=== PATIENT | female | born 1945 | race Caucasian/White ===

== ENCOUNTER 2019-05-15 06:00 | Outpatient (RCR) | payer MEDICARE, BC, SELFPAY | END 2019-05-31 23:59 | disposition home or self-care (01) | LOC: TPT 06:00 | PROVIDERS: Family Provider Internal Medicine; PCP Internal Medicine; Visit Provider Internal Medicine | DX: M25.512 Pain in left shoulder (principal) | CPT/HCPCS: 97032; 97110; 97140; 97161; 97530; G0283 ==

== ENCOUNTER 2019-06-01 06:00 | Outpatient (RCR) | payer MEDICARE, BC, SELFPAY | END 2019-06-29 23:59 | disposition home or self-care (01) | LOC: TPT 06:00 | PROVIDERS: Family Provider Internal Medicine; PCP Internal Medicine; Visit Provider Internal Medicine | DX: R42 Dizziness and giddiness (principal) | CPT/HCPCS: 97032; 97110; 97140; 97164; 97530; G0283 ==

== ENCOUNTER 2019-06-30 06:00 | Outpatient (RCR) | payer MEDICARE, BC, SELFPAY | END 2019-07-30 23:59 | disposition home or self-care (01) | LOC: TPT 06:00 | PROVIDERS: Family Provider Internal Medicine; PCP Internal Medicine; Visit Provider Internal Medicine | DX: R42 Dizziness and giddiness (principal) | CPT/HCPCS: 97032; 97110; 97140; G0283 ==

== ENCOUNTER 2019-07-04 20:00 | Outpatient (CLI) | payer MEDICARE, BC, SELFPAY | END 2019-07-04 20:01 | disposition home or self-care (01) | LOC: SLEEP 07-05 09:24 | PROVIDERS: Family Provider Internal Medicine; PCP Internal Medicine; Visit Provider Internal Medicine | DX: G47.33 Obstructive sleep apnea (adult) (pediatric) (principal) | CPT/HCPCS: 95810 ==

== ENCOUNTER 2019-09-09 09:12 | Day surgery (SDC) | payer MEDICARE, BC, SELFPAY ==
[2019-09-06 13:34] VITALS: BMI 35.7
--- NOTE | 2019-09-09 08:29 | W.PM.OPSFHP ---
Same Day Surgery H&P Indication for Procedure/HPI DATE OF PROCEDURE: September 09, 2019 CHIEF COMPLAINT/INDICATIONFOR SURGICAL PROCEDURE: Epigastric pain and chronic diarrhea PREOP DIAGNOSIS: Epigastric pain and chronic diarrhea PLANNED PROCEDRUE: Operation Date: 09/09/19 09:35 Proposed Procedures p EGD [id number]/R10.13/K52.9(Not Applicable) - Silvio Sequeira MD s Colonoscopy(Not Applicable) - Silvio Sequeira MD Medications/Allergies* Home Medications Medication Instructions Recorded Confirmed Type aspirin 81 mg tablet,delayed 81 mg PO DAILY 07/29/19 09/06/19 History release atenolol 25 mg tablet 25 mg PO DAILY 07/29/19 09/06/19 History atorvastatin 40 mg tablet 40 mg PO DAILY 07/29/19 09/06/19 History cholecalciferol (vitamin D3) 25 25 mcg PO DAILY 07/29/19 09/06/19 History mcg (1,000 unit) capsule clopidogrel 75 mg tablet 75 mg PO DAILY 07/29/19 09/06/19 History fish oil-dha-epa 1,200 mg-144 1 cap PO 07/29/19 07/29/19 History mg-216 mg capsule furosemide 40 mg tablet 40 mg PO DAILY 07/29/19 09/06/19 History hydrocodone 5 mg-acetaminophen 325 1 tab PO DAILY PRN tab 07/29/19 09/06/19 History mg tablet isosorbide mononitrate 60 mg 60 mg PO DAILY 07/29/19 09/06/19 History tablet,extended release 24 hr naproxen 250 mg tablet 250 mg PO BID PRN 07/29/19 09/06/19 History potassium chloride 20 mEq 20 meq PO DAILY 07/29/19 09/06/19 History tablet,extended release ranolazine 500 mg tablet,extended 500 mg PO BID 07/29/19 09/06/19 History release,12 hr pyridostigmine bromide 60 mg PO TID 09/06/19 09/06/19 History Allergies/Adverse Reactions Allergy/AdvReac Type Severity Reaction Status Date / Time amoxicillin Allergy ALGY-Hives Verified 07/29/19 14:44 aspirin [From Aggrenox] Allergy Unknown Verified 07/29/19 14:44 Cephalosporins Allergy Unknown Verified 07/29/19 14:44 dipyridamole [From Aggrenox] Allergy Unknown Verified 07/29/19 14:44 glimepiride [From Amaryl] Allergy Unknown Verified 07/29/19 14:44 levofloxacin [From Levaquin] Allergy Unknown Verified 07/29/19 14:44 pregabalin [From Lyrica] Allergy Unknown Verified 07/29/19 14:44 procaine [From Novocain] Allergy Unknown Verified 07/29/19 14:44 sumatriptan [From Imitrex] Allergy ALGY-Rash Verified 07/29/19 14:44 Pertinent Exam Findings alert, oriented x 3, clear to auscultation bilaterally, regular rate & rhythm, operative site marked and procedure specific exam findings Recommendations Surgery/Procedure today Coding Level of Care Code Acute Business Services Representative for Sherie Arboleda
[2019-09-09 09:40] VITALS: BP 158/84; PULSE 68; RESP 18; TEMP 36.3; O2SAT 97
[2019-09-09] MEDS: sodium chloride 0.9% 1,000 ML 30 ML IV (09:50)
--- NOTE | 2019-09-09 09:54 | ANES.PREANE2 ---
Pre-Anesthetic Assessment Pre-Anesthetic Assessment: Height/Weight: Height 1.65 m Weight 97.522 kg Temp Pulse Resp BP Pulse Ox 97.3 F L 68 18 158/84 97 09/09/19 09:40 09/09/19 09:40 09/09/19 09:40 09/09/19 09:40 09/09/19 09:40 Preop Diagnosis: diarrhea Proposed Procedure: Operation Date: 09/09/19 09:35 Proposed Procedures p EGD [id number]/R10.13/K52.9(Not Applicable) - Silvio Sequeira MD s Colonoscopy(Not Applicable) - Silvio Sequeira MD Familial anesthetic complications: None Did not take atenolol Was Beta Quang taken within 24 hours: N/A Last intake: Intake Last Liquid Date 09/08/19 Last Liquid Time 19:30 Last Solid Date 09/07/19 Last Solid Time 00:00 Social: Social History: No alcohol and No tobacco Exam: Pre-Anes Outpt Exam: alert, oriented x 3, clear to auscultation bilaterally and regular rate & rhythm Airway: Cervical ROM: WNL MP: 4 Additional comments: missing Pulmonary: Pulmonary: Sleep apnea (cpap) CV/HEM: CV/HEM: HTN Comments: Patient states I have no idea why I take plavix. I just follow the doctor's directions Probably last took plavix yesterday : : None reported Hepatic: Hepatic: None reported GI: GI: None reported Metabolic: Metabolic: None reported Musc/skel: Musc/skel: None reported Neuropsych: Neuropsych: None reported Anesthetic Plan: ASA status: 3 Anesthesia: MAC Risk of > 500 ml blood loss (7ml/kg in children): No Meds/Allergies Current Medications: Current Medications Generic Name Dose Route Start Last Admin Trade Name Freq PRN Reason Stop Dose Admin Sodium Chloride 1,000 mls @ 30 ml s/hr 09/09/19 09:45 09/09/19 09:50 Sodium Chloride 0.9% IV 30 mls/hr .Q24H ALVARADO Administration Data Anesthesia Cardiac Studies: No Data to Display
[2019-09-09 09:55] LABS: Glucose Point of Care 144 mg/dL (70-110)
[2019-09-09 11:33] VITALS: BP 151/90; PULSE 57; RESP 16; TEMP 33.1; O2SAT 92
[2019-09-09 12:00] VITALS: BP 159/89; PULSE 66; RESP 18; O2SAT 95
[2019-09-10 14:19] LABS: H. Pylori / CLO Test Negative
== END 2019-09-09 12:30 | disposition home or self-care (01) ==
PROVIDERS: Family Provider Internal Medicine; PCP Internal Medicine; Visit Provider Internal Medicine
PROC: 0DJ08ZZ Inspection of Upper Intestinal Tract, Via Natural or Artificial Opening Endoscopic (ICD-10-PCS; CPT 43235; principal; 2019-09-09 09:30)
PROC: 0DJD8ZZ Inspection of Lower Intestinal Tract, Via Natural or Artificial Opening Endoscopic (ICD-10-PCS; CPT 45378; 2019-09-09 09:30)
DX: K52.9 Noninfective gastroenteritis and colitis, unspecified (principal); R10.13 Epigastric pain; Z79.82 Long term (current) use of aspirin; G47.30 Sleep apnea, unspecified; I10 Essential (primary) hypertension; Z79.02 Long term (current) use of antithrombotics/antiplatelets
CPT/HCPCS: 45378; 12345; 36416; 43239; 45380; 82274; 82962; 83630; 87077; 87493; 87506; 88305; J2001; J2704; J7030

== ENCOUNTER → 2019-11-04 10:30 | Outpatient (BNVA) | payer MEDICARE, BC, SELFPAY | PROVIDERS: Family Provider Internal Medicine; PCP Internal Medicine; Visit Provider Internal Medicine Cardiovascular Disease | DX: R06.02 Shortness of breath (principal); I50.33 Acute on chronic diastolic (congestive) heart failure; I35.0 Nonrheumatic aortic (valve) stenosis; Z86.73 Personal history of transient ischemic attack (TIA), and cerebral infarction without residual deficits; I10 Essential (primary) hypertension; E78.5 Hyperlipidemia, unspecified | CPT/HCPCS: 80048; 83880 ==

== ENCOUNTER 2019-11-28 09:06 | Outpatient (CLI) | payer MEDICARE, BC, SELFPAY ==
--- NOTE | 2019-11-28 09:19 | USCV_ITS ---
Raven Rocha Age: 74 Gender: F : 1945 Exam Date: 11/28/2019 09:44 Ordering Phys: Rose Mcdonald MD ([email or web address]) Technologist: Asya Guido Exam Location: [facility] [place] Indication: SOB AOS BP: 168 / 71 HR: 67 Rhythm: Sinus Technical Quality: Good MEASUREMENTS (Male / Female) Normal Values 2D ECHO LV Diastolic Diameter PLAX 4.5 cm 4.2 - 5.9 / 3.9 - 5.3 cm LV Systolic Diameter PLAX 3.2 cm LV Chamber Size 4.5 cm IVS Diastolic Thickness 1.3 cm 0.6 - 1.0 / 0.6 - 0.9 cm IVS Systolic Thickness 1.8 cm LVPW Diastolic Thickness 1.4 cm 0.6 - 1.0 / 0.6 - 0.9 cm LVPW Systolic Thickness 1.7 cm RV Chamber Size 3.8 cm LVOT Diameter 2.0 cm LV Ejection Fraction 2D Teich 55.6 % LV Ejection Fraction MOD 2C 61.4 % LV Ejection Fraction 2C AL 60.9 % LA Diameter 3.2 cm LA Width 3.8 cm LA Height 4.9 cm RA Width 2.7 cm RA Height 4.2 cm Aorta at Sinotubular Diameter 2.7 cm M-MODE LV Diastolic Diameter MM 6.2 cm 4.2 - 5.9 / 3.9 - 5.3 cm LV Systolic Diameter MM 4.3 cm LV Ejection Fraction MM Teich 57.9 % IVS Diastolic Thickness MM 1.0 cm 0.6 - 1.0 / 0.6 - 0.9 cm IVS Systolic Thickness MM 1.4 cm LVPW Diastolic Thickness MM 1.4 cm 0.6 - 1.0 / 0.6 - 0.9 cm LVPW Systolic Thickness MM 1.5 cm Aortic Annulus Diameter 3.3 cm LA Ao Ratio MM 0.9 MV E Point Septal Separation 1.6 cm DOPPLER AV Peak Velocity 146.0 cm/s LVOT Peak Velocity 93.0 cm/s AV Area Cont Eq vti 2.0 cm squared AV Area Cont Eq pk 2.0 cm squared MV Area PHT 3.5 cm squared Mitral E to A Ratio 0.8 MV E' Velocity 9.0 cm/s Mitral E to MV E' Ratio 8.4 Mitral E to LV E' Lateral Ratio 8.8 Mitral E to LV E' Septal Ratio 8.0 TR Peak Velocity 188.1 cm/s TR Peak Gradient 14.2 mmHg TR Mean Velocity 136.5 cm/s TR Mean Gradient 8.6 mmHg TR Velocity Time Integral 53.4 cm TV Peak E Velocity 49.0 cm/s Right Atrial Pressure 3.0 mmHg Pulmonary Artery Systolic Pressu 17.2 mmHg PV Peak Velocity 64.0 cm/s FINDINGS Left Ventricle Normal left ventricular size and systolic function, EF 67 %. No regional wall motion abnormalities. Right Ventricle The right ventricle is normal in size and function. Right Atrium The right atrium is normal in size. Left Atrium The left atrium is normal in size. Mitral Valve Thickened mitral valve. Mild-moderate mitral valve regurgitation. Aortic Valve Structurally normal aortic valve without significant sclerosis or stenosis. There is no aortic regurgitation. Tricuspid Valve Trace tricuspid valve regurgitation. Pulmonic Valve Trace pulmonary valve regurgitation. Pericardium Normal pericardium without effusion. Aorta Normal ascending aorta dimension. CONCLUSIONS Normal left ventricular size and systolic function, EF 67 %. No regional wall motion abnormalities. Thickened mitral valve. Mild-moderate mitral valve regurgitation. Trace tricuspid valve regurgitation. Trace pulmonary valve regurgitation. There is no pericardial effusion. There are no intracardiac masses. Normal pulmonary artery pressures Compared to the study from 06/22/2018, there may not be a significant change Dr Rose Mcdonald MD [facility] (Electronically Signed) Final Date: 28 November 2019 17:52 S
== END 2019-11-28 09:07 | disposition home or self-care (01) ==
LOC: US 09:09
PROVIDERS: PCP Internal Medicine; Visit Provider Internal Medicine Cardiovascular Disease
DX: R06.02 Shortness of breath (principal); I08.1 Rheumatic disorders of both mitral and tricuspid valves
CPT/HCPCS: 93306

== ENCOUNTER → 2020-03-27 14:21 | Outpatient (BNVA) | payer MEDICARE, BC, SELFPAY | PROVIDERS: PCP Internal Medicine; Visit Provider Nurse Practitioner Family | DX: Z20.828 Contact with and (suspected) exposure to other viral communicable diseases (principal) | CPT/HCPCS: 87635 ==

== ENCOUNTER → 2022-05-11 10:07 | Outpatient (BNVA) | payer MEDICARE, SELFPAY | PROVIDERS: PCP Internal Medicine; Referring Provider Internal Medicine; Visit Provider Nurse Practitioner | DX: F03.90 Unspecified dementia, unspecified severity, without behavioral disturbance, psychotic disturbance, mood disturbance, and anxiety (principal) | CPT/HCPCS: 36415; 80053; 82607; 84443; 85025; 99203 ==

== ENCOUNTER 2022-06-27 09:00 | Outpatient (CLI) | payer MEDICARE, SELFPAY ==
--- NOTE | 2022-06-27 09:30 | MR_ITS ---
WS: [id number] MRI HEAD WITHOUT CONTRAST TECHNIQUE: Sagittal T1, T2 axial, T2 axial FLAIR, axial and coronal T1 images, axial susceptibility w eighted imaging, axial diffusion weighted images, and coronal T2 images were obtained. CLINICAL INFORMATION: R41.3 - Other amnesia COMPARISON: CT 2019. MRI 2018. FINDINGS: No evidence of restricted diffusion to suggest acute ischemia. Ventricular system and basal cisterns are patent. Normal posterior fossa. Normal vascular flow voids at the skull base. No extra-axial flui d collections. No evidence of mass or mass effect. Mild mucosal thickening paranasal sinuses. Mastoid air cells well aerated. Mild mucosal thickening in the mastoid tips. Moderate small vessel changes. Moderate parenchymal volume loss. Small vessel changes in the patti. No hemosiderin on susceptibly weighted images. Normal optic chiasm and pituitary infundibulum. Moderate to advanced symmetric atrophy temporal lobes and hippocampal formations progressed compared to previ ous. MR/MR head wo con* [id number] IMPRESSION: 1. No evidence of restricted diffusion to suggest acute ischemia. 2. Moderate small vessel changes with moderate parenchymal volume loss. Parenc hymal volume loss is slightly progressed compared to previous. 3. Moderate to advanced atrophy temporal lobes and hippocampal formations prog ressed compared to previous. 4. No hemosiderin on the susceptibly weighted images.
== END 2022-06-27 09:01 | disposition home or self-care (01) ==
PROVIDERS: PCP Internal Medicine; Visit Provider Nurse Practitioner
DX: R41.3 Other amnesia (principal)
CPT/HCPCS: 70551

== ENCOUNTER → 2023-01-09 10:45 | Outpatient (BNVA) | payer MEDICARE, SELFPAY | PROVIDERS: PCP Internal Medicine; Visit Provider Specialist | DX: G30.9 Alzheimer's disease, unspecified (principal); F02.80 Dementia in other diseases classified elsewhere, unspecified severity, without behavioral disturbance, psychotic disturbance, mood disturbance, and anxiety | CPT/HCPCS: 99214 ==

== ENCOUNTER 2024-01-03 19:59 | Emergency (ER) | payer MEDICARE, SELFPAY ==
[2024-01-03] VITALS (35 sets, daily range): BP systolic 87–148; BP diastolic 58–80; PULSE 63–138; RESP 16–23; TEMP 37.3; O2SAT 83–93; BMI 33.2
--- NOTE | 2024-01-03 20:05 | XRR_ITS ---
PROCEDURE INFORMATION: Exam: XR Chest Exam date and time: 01/03/2024 8:09 PM Age: 78 years old Clinical indication: Other: AMS TECHNIQUE: Imaging protocol: Radiologic exam of the chest. Views: 1 view. COMPARISON: CT chest con [id number] 06/22/2018 12:54 AM FINDINGS: Lungs: Mild left basilar atelectasis. No focal consolidations. Pleural spaces: No pleural effusion. No pneumothorax. Heart/Mediastinum: Unremarkable. No cardiomegaly. Bones/joints: No acute fractures. Hardware within the right femoral head. XR/XR chest 1V portable [id number] IMPRESSION: Mild left basilar atelectasis. No focal consolidations.
--- NOTE | 2024-01-03 20:05 | CTR_ITS ---
PROCEDURE INFORMATION: Exam: CT Head Without Contrast Exam date and time: 01/03/2024 8:36 PM Age: 78 years old Clinical indication: Altered mental status/memory loss; Additional info: AMS TECHNIQUE: Imaging protocol: Computed tomography of the head without contrast. Radiation optimization: All CT scans at this facility use at least one of these dose optimization techniques: automated exposure control; mA and/or kV adjustment per patient size (includes targeted exams where dose is matched to clinical indication); or iterative reconstruction. COMPARISON: MR head wo con* [id number] 06/27/2022 10:08 AM RADIATION DOSE METRICS: Total DLP (mGy-cm): 1108 FINDINGS: Brain: No acute intracranial hemorrhage or territorial infarction. No mass effect or midline shift. Mild microangiopathy with global cerebral volume loss. Cerebral ventricles: No ventriculomegaly. Paranasal sinuses: Mucosal thickening of the ethmoid sinus. Mastoid air cells: Visualized mastoid air cells are well aerated. Bones: Unremarkable. No acute fracture. Soft tissues: Unremarkable. CT/CT head wo con* [id number] IMPRESSION: No acute intracranial findings.
[2024-01-03 20:07] LABS: Glucose Point of Care 109 mg/dL (70-110)
--- NOTE | 2024-01-03 20:07 | ED_ITS ---
HPI - Neuro Symptoms/Deficit 2 General: Chief Complaint: Neuro Symptoms/Deficit Stated Complaint: stroke like symptoms Time Seen by Provider: 01/03/24 20:05 History of Present Illness: Patient brought to the ER by EMS for possible strokelike symptoms. Patient does have dementia and myasthenia gravis. Patient's daughter states this morning patient began having shuffled gait with possible right-sided facial droop last known well was yesterday. When patient arrived to the ER she does not appear to have any right-sided facial droop, she moves all 4 extremities equal and symmetrical with minor difficulty holding legs up against gravity but does try to move them. No obvious focal neurologic deficits, mental status is hard to evaluate secondary to dementia however patient knows her name and her date of . Related Data Home Medications Medication Instructions Recorded Confirmed cholecalciferol (vitamin D3) 25 25 mcg PO DAILY 07/29/19 01/09/23 mcg (1,000 unit) capsule (Vitamin D3) fish oil-dha-epa 1,200 mg-144 1 cap PO DAILY 07/29/19 01/09/23 mg-216 mg capsule potassium chloride 20 mEq 20 meq PO DAILY 07/29/19 01/09/23 tablet,extended release baclofen 10 mg tablet 10 mg PO DAILY PRN muscle spasm 11/04/19 01/09/23 quinapril 40 mg tablet 40 mg PO DAILY 11/04/19 01/09/23 coffee 100 mg theanine 200 mg 1 cap PO DAILY 08/10/20 01/09/23 superoxide dismutase 10 mg capsule (Neuriva De-Stress) glimepiride 2 mg tablet 2 mg PO DAILY 08/10/20 01/09/23 hydrocodone 5 mg-acetaminophen 325 1 tab PO TID PRN Pain 08/10/20 01/09/23 mg tablet metformin 500 mg tablet,extended 500 mg PO BID 08/10/20 01/09/23 release 24hr (osmotic) tizanidine 4 mg tablet 4 mg PO TID PRN 08/10/20 01/09/23 pyridostigmine bromide 60 mg tablet 60 mg PO BID 01/09/23 01/09/23 Previous Rx's Medication Instructions Recorded pantoprazole 40 mg tablet,delayed 40 mg PO DAILY #30 tabs 09/09/19 release rifaximin 550 mg tablet (Xifaxan) 550 mg PO TID #42 tabs 10/09/19 isosorbide mononitrate 120 mg 120 mg PO DAILY 90 days #90 tabs 01/16/20 tablet,extended release 24 hr amlodipine 10 mg tablet 10 mg PO DAILY #90 tabs 08/10/20 atenolol 25 mg tablet 25 mg PO DAILY #90 tabs 08/10/20 atorvastatin 40 mg tablet 40 mg PO DAILY #90 tabs 08/10/20 clopidogrel 75 mg tablet (Plavix) 75 mg PO DAILY #90 tabs 08/10/20 furosemide 40 mg tablet 40 mg PO DAILY #90 tabs 08/10/20 ranolazine 500 mg tablet,extended 500 mg PO BID #180 tabs 08/10/20 release,12 hr (Ranexa) donepezil 23 mg tablet See Rx Instructions .Route 12/06/23 .COMPLEX #60 tabs memantine 10 mg tablet 10 mg PO BID #90 tabs 12/12/23 nitrofurantoin 100 mg PO BID 7 days #14 caps 01/03/24 monohydrate/macrocrystals 100 mg capsule (Macrobid) Allergies Allergy/AdvReac Type Severity Reaction Status Date / Time amoxicillin Allergy ALGY-Hives Verified 05/11/22 10:37 aspirin [From Aggrenox] Allergy Unknown Verified 05/11/22 10:37 Cephalosporins Allergy Unknown Verified 05/11/22 10:37 dipyridamole [From Aggrenox] Allergy Unknown Verified 05/11/22 10:37 glimepiride [From Amaryl] Allergy Unknown Verified 05/11/22 10:37 levofloxacin [From Levaquin] Allergy Unknown Verified 05/11/22 10:37 pregabalin [From Lyrica] Allergy Unknown Verified 05/11/22 10:37 procaine [From Novocain] Allergy Unknown Verified 05/11/22 10:37 sumatriptan [From Imitrex] Allergy ALGY-Rash Verified 05/11/22 10:37 Review of Systems 2 General: Reports: 10 or more systems reviewed and unremarkable except in HPI and below PFSH ED 2 PFSH: Medical History (Updated 01/03/24 @ 23:11 by Gunnar Fuentes DO) SOB (shortness of breath) Old cerebrovascular accident (CVA) without late effect Dyslipidemia Benign essential hypertension with target blood pressure below 140/90 Abdominal pain Rotator cuff arthropathy of right shoulder Tubal infertility in female Surgical History History of carpal tunnel surgery H/O thyroidectomy H/O: hysterectomy H/O knee surgery History of cholecystectomy H/O eye surgery H/O mastoidectomy History of appendectomy H/O mastectomy H/O colonoscopy Family History Sister Cancer Mother Cancer Daughter Cancer Denies family history of Diabetes CAD (coronary artery disease) Clotting disorder Dementia Chronic kidney disease (CKD) Suicide Anesthesia complication Bleeding disorder Lung disease Stroke Social History Smoking and tobacco/nicotine status: never used tobacco/nicotine Physical Exam 2 Const: COMMON NORMALS: no acute distress, average body habitus, healthy appearing, alert and well nourished; negative for patient oriented x3 (Oriented to name and birthdate) and limitations (Limited by patient's dementia) HENMT: COMMON NORMALS: normocephalic, atraumatic, hearing grossly normal bilaterally, external ears normal, Normal external nose present and moist oral mucous membranes HEAD & SCALP: normocephalic and atraumatic NOSE: Normal external nose present EXTERNAL EAR: Yes external ears normal Eye: COMMON NORMALS: Equal, round and reactive pupils present, EOMs intact bilaterally, conjunctivae normal and no scleral icterus CONJUNCTIVA: Yes conjunctivae normal PUPIL: Yes Equal, round and reactive pupils present Neck/C-Spine: COMMON NORMALS: full ROM, no lymphadenopathy, supple, no meningeal signs, no JVD and Thyroid normal THYROID: Thyroid normal Chest: COMMONS NORMALS: normal inspection of the chest and normal palpation of entire chest wall Resp: COMMON NORMALS: normal respiratory effort, No retractions, No use of accessory muscles and clear to auscultation bilaterally AUSCULTATION: clear to auscultation bilaterally Cardio: COMMON NORMALS: no JVD, regular rate, regular rhythm, S1 normal heart sound present, S2 normal heart sound present, No gallops present (Cardio), No clicks present (Cardio), No murmurs present (Cardio) and No rub (Cardio) R ATE: regular rate RHYTHM: regular rhythm HEART SOUNDS: S1 normal heart sound present and S2 normal heart sound present GI: COMMON NORMALS: Normal to inspection, nondistended, normoactive bowel sounds present, Soft to palpation, non-tender, No hepatosplenomegaly present and no masses PALPATION: Yes Soft to palpation and Yes No hepatosplenomegaly present Neuro: COMMON NORMALS: negative for patient oriented x3 (Oriented to name and birthdate) SENSORIUM/ORIENTATION: Yes alert MENINGEAL SIGNS: Yes no meningeal signs Course 2 Vital Signs: Vital signs: Vital Signs Temperature 99.2 F 01/03/24 19:59 Pulse Rate 69 01/03/24 22:30 Respiratory Rate 16 01/03/24 22:30 Blood Pressure 121/58 01/03/24 22:30 Pulse Oximetry 92 01/03/24 22:30 Oxygen Delivery Me thod Room Air 01/03/24 22:30 MDM - Neuro Symptoms/Deficit Medical Decision Making Patient no neurological focal deficits in the ER. She was worked up in a standard strokelike fashion significant back negative except urinary tract infection. Patient will be put on Macrobid. Daughter was there at bedside this was all explained to her in detail. Patient be discharged home. Medical Records I reviewed the patient's medical records. Lab Data I reviewed the patient's lab results. 01/03/24 20:07 01/03/24 20:07 Radiology Impressions Chest X-Ray 01/03/24 20:05 IMPRESSION: Mild left basilar atelectasis. No focal consolidations. Head CT 01/03/24 20:05 IMPRESSION: No acute intracranial findings. Laboratory Results WBC 6.36 10^3/uL (3.29-11.43) 01/03/24 20:07 RBC 4.43 10^6/uL (3.85-5.65) 01/03/24 20:07 Hgb 12.20 g/dL (11.27-16.99) 01/03/24 20:07 Hct 37.2 % (36-47) 01/03/24 20:07 MCV 84.0 fl (85-98) L 01/03/24 20:07 MCH 27.5 pg (27-33) 01/03/24 20:07 MCHC 32.8 g/dL (30-55) 01/03/24 20:07 RDW 13.8 % (12.1-15.1) 01/03/24 20:07 Plt Count 150 10^3/cmm (157-399) L 01/03/24 20:07 MPV 10.3 fL (7.4-10.4) 01/03/24 20:07 Neut % (Auto) 75.2 % 01/03/24 20:07 Lymph % (Auto) 13.2 % 01/03/24 20:07 [place] % (Auto) 8.3 % 01/03/24 20:07 Eos % (Auto) 2.7 % 01/03/24 20:07 Baso % (Auto) 0.3 % 01/03/24 20:07 Neut # (Auto) 4.78 10^3/uL (1.8-7.7) 01/03/24 20:07 Lymph # (Auto) 0.8 10^3/uL (0.8-4.8) 01/03/24 20:07 [place] # (Auto) 0.5 10^3/uL (0.2-0.9) 01/03/24 20:07 Eos # (Auto) 0.2 10^3/uL (0.0-0.8) 01/03/24 20:07 Baso # (Auto) 0.0 10^3/uL (0.0-0.1) 01/03/24 20:07 Nucleated RBC % (auto) 0 % 01/03/24 20:07 Nucleated RBCs # 0.0 /100WBC 01/03/24 20:07 PT 15.20 SECONDS (12.1-14.9) H 01/03/24 20:07 INR 1.16 (0.8-1.2) 01/03/24 20:07 Sodium 141 mmol/L (136-145) 01/03/24 20:07 Potassium 3.3 mmol/L (3.5-5.1) L 01/03/24 20:07 Chloride 103 mmol/L (98-107) 01/03/24 20:07 Carbon Dioxide 26 mmol/L (22-29) 01/03/24 20:07 Anion Gap 15.3 (5-19) 01/03/24 20:07 BUN 14 mg/dL (8-23) 01/03/24 20:07 Creatinine 0.9 mg/dL (0.5-0.9) 01/03/24 20:07 GFR Calculation Not Reportable 01/03/24 20:07 Glucose 105 mg/dL (65-115) 01/03/24 20:07 POC Glucose 109 mg/dL (70-110) 01/03/24 20:03 Calculated Osmolality 293 mOsm/kg (285-295) 01/03/24 20:07 Calcium 8.6 mg/dL (8.5-10.5) 01/03/24 20:07 Magnesium 1.9 mg/dL (1.7-2.3) 01/03/24 20:07 Total Bilirubin 0.6 mg/dL (0.15-1.2) 01/03/24 20:07 AST 14 U/L (0-32) 01/03/24 20:07 ALT 12 U/L (0-33) 01/03/24 20:07 Alkaline Phosphatase 83 U/L (35-105) 01/03/24 20:07 Troponin T Baseline 12 ng/L (0-10) H 01/03/24 20:07 Troponin T 120 Minute 13.24 ng/L (0-10) H 01/03/24 22:35 Delta Troponin T 1.24 ABS# (0-10) 01/03/24 22:35 C-Reactive Protein 23.3 mg/L (0.0-4.9) H 01/03/24 20:07 NT-Pro-B Natriuret Pep 448 pg/mL (0-450) 01/03/24 20:07 Total Protein 6.5 g/dL (6.6-8.7) L 01/03/24 20:07 Albumin 4.0 g/dL (3.5-5.2) 01/03/24 20:07 Globulin 2.5 g/dL (1.3-4.6) 01/03/24 20:07 TSH 1.45 uIU/mL (0.27-4.20) 01/03/24 20:07 Urine Color Yellow (Yellow) 01/03/24 21:15 Urine Appearance Turbid (CLEAR) A 01/03/24 21:15 Urine pH 5.5 (5-7) 01/03/24 21:15 Ur Specific Alpha 1.021 (1.005-1.030) 01/03/24 21:15 Urine Protein 1+ (Negative) A 01/03/24 21:15 Urine Glucose (UA) Negative (Normal) 01/03/24 21:15 Urine Ketones Negative (Negative) 01/03/24 21:15 Urine Blood 2+ (Negative) A 01/03/24 21:15 Urine Nitrate Positive (Negative) A 01/03/24 21:15 Urine Bilirubin Negative (Negative) 01/03/24 21:15 Urine Urobilinogen 1.0 mg/dL (Negative) 01/03/24 21:15 Ur Leukocyte Esterase Trace (Negative) A 01/03/24 21:15 Urine RBC 0-4 /hpf (0-2) H 01/03/24 21:15 Urine WBC 0-4 /hpf (0-5) H 01/03/24 21:15 Ur Squamous Epith Cells 5-10 /hpf (0-5) H 01/03/24 21:15 Calcium Oxalate Crystal 25-40 /hpf H 01/03/24 21:15 Amorphous Sediment Not Reportable 01/03/24 21:15 Urine Bacteria 3+ /hpf (NONE) H 01/03/24 21:15 Urine Opiates Screen Negative ng/mL (Negative) 01/03/24 21:15 Ur Barbiturates Screen Negative ng/mL (Negative) 01/03/24 21:15 Ur Phencyclidine Scrn Negative ng/mL (Negative) 01/03/24 21:15 Ur Amphetamines Screen Negative ng/mL (Negative) 01/03/24 21:15 U Benzodiazepines Scrn Negative ng/mL (Negative) 01/03/24 21:15 Urine Cocaine Screen Negative ng/mL (Negative) 01/03/24 21:15 U Marijuana (THC) Screen Negative ng/mL (Negative) 01/03/24 21:15 All radiology interpretation(s) finalized by discharge Discharge Plan Discharge Patient Disposition: Home Clinical Impression: Urinary tract infection Qualifiers: Urinary tract infection type: acute cystitis Hematuria presence: with hematuria Qualified Code(s): N30.01 - Acute cystitis with hematuria Condition: Stable Prescriptions: New Macrobid 100 mg capsule 100 mg PO BID 7 Days Qty: 14 0RF Rx Instructions: must administer with a meal/food No Action isosorbide mononitrate 120 mg tablet extended release 24 hr 120 mg PO DAILY 90 Days Qty: 90 3RF quinapril 40 mg tablet 40 mg PO DAILY baclofen 10 mg tablet 10 mg PO DAILY PRN (Reason: muscle spasm) potassium chloride 20 mEq tablet extended release 20 meq PO DAILY cholecalciferol (vitamin D3) [Vitamin D3] 25 mcg (1,000 unit) capsule 25 mcg PO DAILY fish oil-dha-epa 1,200-144-216 mg capsule 1 cap PO DAILY hydrocodone-acetaminophen 5-325 mg tablet 1 tab PO TID PRN (Reason: Pain) metformin 500 mg tablet extended release 24hr 500 mg PO BID Neuriva De-Stress 100-200-10 mg capsule 1 cap PO DAILY glimepiride 2 mg tablet 2 mg PO DAILY tizanidine 4 mg tablet 4 mg PO TID PRN Xifaxan 550 mg tablet 550 mg PO TID Qty: 42 0RF amlodipine 10 mg tablet 10 mg PO DAILY Qty: 90 3RF atenolol 25 mg tablet 25 mg PO DAILY Qty: 90 3RF atorvastatin 40 mg tablet 40 mg PO DAILY Qty: 90 3RF clopidogrel [Plavix] 75 mg tablet 75 mg PO DAILY Qty: 90 3RF furosemide 40 mg tablet 40 mg PO DAILY Qty: 90 3RF ranolazine [Ranexa] 500 mg tablet extended release 12 hr 500 mg PO BID Qty: 180 3RF donepezil 23 mg tablet See Rx Instructions .ROUTE .COMPLEX Qty: 60 0RF Dose Instruction: Take 1 tablet by mouth once daily Rx Instructions: Take 1 tablet by mouth once daily memantine 10 mg tablet 10 mg PO BID Qty: 90 4RF Rx Instructions: Take one tablet by mouth twice daily. pantoprazole 40 mg tablet,delayed release (DR/EC) 40 mg PO DAILY Qty: 30 8RF pyridostigmine bromide 60 mg tablet 60 mg PO BID Discharge Orders: Discharge ED (Routine); Ordered 01/03/24 Ordered By: Gunnar Fuentes Referrals: Adrian Mcguire MD [Primary Care Provider] - 1 week Patient Instructions: Urinary Tract Infection in Older Adults (ED) Activity Restrictions/Additional Instructions: Please take all your antibiotics as directed. They have been called to [facility] pharmacy and they are. Please follow-up with your family practitioner the next 7 days for further evaluation treatment as needed. Coding Level of Care Code ED Supplier Quality Engineering Manager for Sherie Arboleda
[2024-01-03 20:18] LABS: Basophils % 0.3 %; Eosinophils # 0.2 10^3/uL (0.0-0.8); Eosinophils % 2.7 %; Hematocrit 37.2 % (36-47); Lymphocytes # 0.8 10^3/uL (0.8-4.8); Lymphocytes % 13.2 %; Mean Corpuscular HGB Conc 32.8 g/dL (30-55); Mean Corpuscular Hemoglobin 27.5 pg (27-33); Mean Platelet Volume 10.3 fL (7.4-10.4); Monocytes # 0.5 10^3/uL (0.2-0.9); Monocytes % 8.3 %; Neutrophils # 4.78 10^3/uL (1.8-7.7); Neutrophils % 75.2 %; Nucleated Red Blood Cells % 0 %; Platelet Count 150 10^3/cmm (157-399); Red Blood Count 4.43 10^6/uL (3.85-5.65); Red Cell Distribution Width 13.8 % (12.1-15.1); White Blood Count 6.36 10^3/uL (3.29-11.43)
--- NOTE | 2024-01-03 20:26 | ECG_ITS ---
[facility] Test Date: 2024-01-03 Pat Name: Raven Rocha Department: Room: Gender: Female Supervisor Kennel: : 1945 Requested By: Gunnar Fuentes Order Number: [id number] Hudson MD: Rose Mcdonald M.D. Measurements Intervals [place] Rate: 88 P: 75 MT: 180 QRS: -35 QRSD: 161 T: -13 QT: 416 QTc: 504 Interpretive Statements SINUS RHYTHM INDETERMINATE AXIS RIGHT BUNDLE BRANCH BLOCK [120+ ms QRS DURATION, UPRIGHT V1, 40+ ms S IN I/aVL/V4/V5/V6] Compared to ECG 06/22/2018 05:52:46 First degree AV block no longer present Electronically Signed On 01-03-2024 22:37:56 CDT by Rose Mcdonald M.D. [id number]
[2024-01-03 20:35] LABS: Troponin(5th) Baseline 12 ng/L (0-10)
[2024-01-03 20:44] LABS: INR 1.16 (0.8-1.2)
[2024-01-03 20:45] LABS: Alanine Aminotransferase 12 U/L (0-33); Alkaline Phosphatase 83 U/L (35-105); Anion Gap 15.3 (5-19); Aspartate Amino Transferase 14 U/L (0-32); Blood Urea Nitrogen 14 mg/dL (8-23); C Reactive Protein 23.3 mg/L (0.0-4.9); Calcium 8.6 mg/dL (8.5-10.5); Carbon Dioxide 26 mmol/L (22-29); Chloride 103 mmol/L (98-107); Globulin 2.5 g/dL (1.3-4.6); Glucose 105 mg/dL (65-115); Magnesium 1.9 mg/dL (1.7-2.3); NT Pro B Type Natriuretic Pept 448 pg/mL (0-450); Osmolality Calculated 293 mOsm/kg (285-295); Potassium 3.3 mmol/L (3.5-5.1); Sodium 141 mmol/L (136-145); Thyroid Stimulating Hormone 1.45 uIU/mL (0.27-4.20); Total Bilirubin 0.6 mg/dL (0.15-1.2); Total Protein 6.5 g/dL (6.6-8.7)
[2024-01-03 21:28] LABS: Charge for UA Resulting for Rev
[2024-01-03 21:31] LABS: Bilirubin Urine Negative (Negative); Blood Urine 2+ (Negative); Glucose Urine UA Negative (Normal); Ketones Urine Negative (Negative); Leukocyte Esterase Urine Trace (Negative); Nitrate Urine Positive (Negative); Protein Urine 1+ (Negative); Specific Gravity, Urine 1.021 (1.005-1.030); Urine Appearance Turbid (CLEAR); Urine Color Yellow (Yellow); pH Urine 5.5 (5-7)
[2024-01-03 21:38] LABS: Amphetamines Screen Urine Negative (Negative); Barbiturates Screen Urine Negative (Negative); Benzodiazepines Screen Urine Negative (Negative); Cocaine Screen Urine Negative (Negative); Opiate Screen Urine Negative (Negative); PCP Screen Urine Negative (Negative); THC Screen Urine Negative (Negative)
[2024-01-03 21:55] LABS: Bacteria Urine 3+ /hpf; RBC Urine 0-4 /hpf (0-2); WBC Urine 0-4 /hpf (0-5)
[2024-01-03 21:56] LABS: Calcium Oxalate Crystals Urine 25-40 /hpf
[2024-01-03 21:57] LABS: Add Urine Culture? Yes
--- NOTE | 2024-01-03 22:07 | ECG_ITS ---
[facility] Test Date: 2024-01-03 Pat Name: Raven Rocha Department: Room: Gender: Female Skin Care Therapist: : 1945 Requested By: Gunnar Fuentes Order Number: [id number] Hudson MD: Tiburcio Alcala M.D. Measurements Intervals [place] Rate: 67 P: 60 OR: 192 QRS: -5 QRSD: 165 T: 13 QT: 450 QTc: 476 Interpretive Statements SINUS RHYTHM RIGHT BUNDLE BRANCH BLOCK [120+ ms QRS DURATION, UPRIGHT V1, 40+ ms S IN I/aVL/V4/V5/V6] Compared to ECG 01/03/2024 20:26:29 Indeterminate axis no longer present Electronically Signed On 01-04-2024 14:56:58 CDT by Tiburcio Alcala M.D. [id number]
[2024-01-03 23:03] LABS: Troponin 5 2HR 13.24 ng/L (0-10); Troponin 5 2HR Delta 1.24 ABS# (0-10)
[2024-01-03] MEDS: nitrofurantoin SR (BID) 100 mg Capsule PO (23:14)
== END 2024-01-03 23:20 | disposition home or self-care (01) ==
PROVIDERS: Emergency Provider Emergency Medicine; PCP Internal Medicine
DX: N30.01 Acute cystitis with hematuria (principal); Z79.02 Long term (current) use of antithrombotics/antiplatelets; Z79.84 Long term (current) use of oral hypoglycemic drugs; Z86.73 Personal history of transient ischemic attack (TIA), and cerebral infarction without residual deficits; E78.5 Hyperlipidemia, unspecified; I10 Essential (primary) hypertension
CPT/HCPCS: 36415; 36416; 70450; 71045; 80053; 80306; 81003; 81015; 82962; 83735; 83880; 84443; 84484; 85025; 85610; 86140; 87077; 87086; 87186; 93005; 99285

== ENCOUNTER → 2024-01-09 10:25 | Outpatient (BNVA) | payer MEDICARE, SELFPAY | PROVIDERS: PCP Internal Medicine; Visit Provider Specialist | DX: G30.9 Alzheimer's disease, unspecified (principal); F02.80 Dementia in other diseases classified elsewhere, unspecified severity, without behavioral disturbance, psychotic disturbance, mood disturbance, and anxiety | CPT/HCPCS: 99214 ==

== ENCOUNTER 2024-12-14 20:31 | Inpatient (IN) | payer MEDICARE, SELFPAY ==
--- OUTSIDE RECORDS SUMMARY | 2024-08-26 05:15 | XMS_ITS ---
Author Organization [facility] Address [address] [place] [address] [place] [id number] Care Team Providers Care Cloth Feeder Name Role Phone CEASAR NGUYEN Primary Care Provider CARMEN FINCH [phone] Encounters Encounter Location Date Provider Diagnosis [facility] [address] [place] [address] [place] [id number] 08/26/2024 CARMEN FINCH Plan Of Treatment No Information Progress Notes * SACHA COBURN PDOB: 7 (79 yo F)Acc No.[id number]:08/26/2024 Patient: Jerome LEILANI SACHA Anderson Provider: Julieta FINCH :1945 A ge:79 Y S ex:Female Date:08/26/2024 Address:[address] [place] [address], [facility] Pcp:CEASAR Anderson SRA Subjective: * Chief Complaints: * * Medical History: Objective: * Vitals: Assessment: Plan: * Treatment: * Care Plan Details* * Electronic signature of TERRANCE RESTREPO APRN on 12/14/2024 at 08:38 PM CDT Sign off status: Pending * Provider: Julieta FINCH Date: 08/26/2024 Generated for Ana jhaveri/Shruthi/eTransmitting on: 0 12/14/2024 08:38 PM CDT
--- OUTSIDE RECORDS SUMMARY | 2024-08-26 05:15 | XMS_ITS ---
Author Organization [facility] Address [address] [place] [address] [place] [id number] Care Team Providers Care Program Advisor Name Role Phone CEASAR NGUYEN Primary Care Provider [phone] CARMEN FINCH [phone] Encounters Encounter Location Date Provider Diagnosis [facility] [address] [place] [address] SERJIO [place] [id number] 08/26/2024 CARMEN FINCH Plan Of Treatment No Information Progress Notes * SACHA COBURN PDOB: 7 (79 yo F)Acc No.[id number]:08/26/2024 Patient: Jerome LEILANI SACHA Anderson Provider: Julieta FINCH :1945 A ge:79 Y S ex:Female Date:08/26/2024 Address:[address] [place] [address], [facility] Pcp:CEASAR Anderson SRA Subjective: * Chief Complaints: * * Medical History: Objective: * Vitals: Assessment: Plan: * Treatment: * Care Plan Details* * Electronic signature of TERRANCE RESTREPO APRN on 12/15/2024 at 02:53 PM CDT Sign off status: Pending * Provider: Julieta FINCH Date: 08/26/2024 Generated for Ana jhaveri/Shruthi/eTransmitting on: 0 12/15/2024 02:53 PM CDT
--- NOTE | 2024-12-14 20:32 | ECG_ITS ---
[facility] Date: 2024-12[facility]14 Pat Name: Raven Rocha Department: Room: Gender: Female System Support Analyst: : 1945 Requested By: Segundo Garcia Order Number: [id number] Hudson MD: Sergio Whittington M.D. Measurements Intervals [place] Rate: 56 P: 70 HI: 211 QRS: -39 QRSD: 117 T: 85 QT: 470 QTc: 457 Interpretive Statements SINUS BRADYCARDIA WITH FIRST DEGREE AV BLOCK LEFT AXIS DEVIATION [QRS AXIS < -30] INCOMPLETE RIGHT BUNDLE BRANCH BLOCK [90+ ms QRS DURATION, TERMINAL R IN V1/V2, 40+ ms S IN I/aVL/V4/V5/V6] Compared to ECG 01/03/2024 22:07:32 First degree AV block now present Electronically Signed On 12-14-2024 22:06:53 CDT by Sergio Whittington M.D. [email or web address]
[2024-12-14 20:38] VITALS: BP 166/80; PULSE 61; RESP 17; TEMP 36.8; O2SAT 95; BMI 35.5
--- OUTSIDE RECORDS SUMMARY | 2024-12-14 20:38 | XMS_ITS | Patient Health Record ---
Author Organization [facility] Address [address] [place] [address] Care Team Providers Care Biological Science Technician Fish Name Role Phone Ramirez Santana Primary Care Provider Allergies Allergen (clinical drug ingredient) Drug/Non Drug Allergy documented on EMR Reaction Allergy Type Onset Date Status cephalexin Cephalexin , Drug Allergy Activ e glimepiride glimepiride , Drug Allergy Act hung levofloxacin levoFLOXacin , Drug Allergy A ctive pregabalin pregabalin , Drug Allergy Activ e sumatriptan Sumatriptan , Drug Allergy Act hung Reason For Referral No Information Medications Medication SIG (Take, Route, Frequency, Duration) Notes Start Date End Date Status atorvastatin 20 MG Oral Tablet atorvastatin 20 MG Oral Tablet 12/25/2017 Active Acetaminophen / Hydrocodone Acetaminophen / Hydrocodone 12/25/2017 Active quinapril 40 MG Oral Tablet quinapril 40 MG Oral Tablet 12/25/2017 Active Lomotil Lomotil 12/26/2017 Active clopidogrel 75 MG Oral Tablet clopidogrel 75 MG Oral Tablet 12/25/2017 Active Amlodipine 10 MG Oral Tablet Amlodipine 10 MG Oral Tablet 12/25/2017 Active Baclofen 10 MG Oral Tablet Baclofen 10 MG Oral Tablet 12/25/2017 Active Furosemide 40 MG Oral Tablet Furosemide 40 MG Oral Tablet 12/25/2017 Active Pyridostigmine [place] 60 MG Oral Tablet Pyridostigmine [place] 60 MG Oral Tablet 12/25/2017 Active 24 HR Metoprolol Tartrate 25 MG Extended Release Tablet 24 HR Metoprolol Tartrate 25 MG Extended Release Tablet 12/25/2017 Active Potassium Chloride 1.33 MEQ Oral Tablet Potassium Chloride 1.33 MEQ Oral Tablet 12/25/2017 Active Immunizations Vaccine Route Administration Date Status Comme nts Influenza (whole), CPT 18625 Inactive Unknown 02/22/2018 Administered Social History Social History Additional Details Category Social Info Options Details zzMigrated Social History Migrated Social History Smoking Status:Never smoked tobacco (finding) Plan Of Treatment No Information
--- OUTSIDE RECORDS SUMMARY | 2024-12-14 20:39 | XMS_ITS | Encounter Summary ---
Author Organization [facility] Address [address] [place] [address] Care Team Providers Care Pipe Bowls Paint Trimmer Name Role Phone Unavailable Primary Care Provider Unavailabl e Encounter Details Date Type Department Care Team (Late st Contact Info) Description 12/02/2002 Outpatient Historical [facility] [place] [address] 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
--- OUTSIDE RECORDS SUMMARY | 2024-12-14 20:39 | XMS_ITS | Encounter Summary ---
Author Organization [facility] Address [address] [place] [address] Care Team Providers Care Treatment Manager Name Role Phone Unavailable Primary Care Provider Unavailabl e Encounter Details Date Type Department Care Team (Latest Contact Info) Description 09/26/2001 Outpatient Historical [facility] Medicine [place] [address] 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
--- OUTSIDE RECORDS SUMMARY | 2024-12-14 20:39 | XMS_ITS | Clinical Summary ---
Author Organization [facility] Address [address] [place]: Epic Prelude [place]T [place] [address] Care Team Providers Care Sheep Clipper Name Role Phone Unavailable Primary Care Provider Unavailabl e Social History Tobacco Use Types Packs/Day Years Used Date Smoking Tobacco: Never Assessed Comments Unknown Sex and Gender Information Value Date Recorded Sex Assigned at Not on file Legal Sex Female 5:26 AM VIDEO INTERN Gender Identity Not on file Sexual Orientation Not on file Plan of Treatment Health Maintenance Due Date Last Done Comments DTAP/TDAP/TD VACCINES (1 - Tdap) 1965 PNEUMOCOCCAL VACCINE 50+ YEARS (1 of 1 - PCV) 06/20/18 97 ZOSTER VACCINE (1 of 2) 1996 OSTEOPOROSIS SCREENING 2011 RSV VACCINE (60+ or ) (1 - 1-dose 75+ series) 2021 INFLUENZA VACCINE (#1) 2024 COLORECTAL SCREENING Discontinued 09/26/2001 Colorectal Cancer Screening Discontinued FIT-DNA Q 3 years Discontinued FIT/FOBT Q 1 year Discontinued Flex Sig/CT Colonography Q 5 years Discontinued
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
--- NOTE | 2024-12-14 21:06 | XRR_ITS ---
PROCEDURE INFORMATION: Exam: XR Chest Exam date and time: 12/14/2024 9:20 PM Age: 79 years old Clinical indication: Chest pressure; Prior surgery; Surgery date: 6+ months; Surgery type: Mastectomy. Gb; C/O chest pain; Additional info: Cp TECHNIQUE: Imaging protocol: Radiologic exam of the chest. Views: 1 view. COMPARISON: CR XR chest 1V portable [id number] 01/03/2024 8:09 PM FINDINGS: Lungs: Unremarkable. No consolidation. Pleural spaces: Unremarkable. No pleural effusion. No pneumothorax. Heart/Mediastinum: Unremarkable. No cardiomegaly. Bones/joints: Unremarkable. Soft tissues: Postsurgical changes present in the soft tissues of the breasts with surgical clips. XR/XR chest 1V portable [id number] IMPRESSION: No acute cardiopulmonary process demonstrated.
[2024-12-14 21:12] VITALS: BP 132/78; PULSE 65; RESP 15; O2SAT 94
[2024-12-14 22:00] VITALS: BP 163/100; PULSE 67; RESP 20; O2SAT 94
[2024-12-14 22:00] LABS: Hematocrit 40.5 % (36-47); Hemoglobin 12.80 g/dL (11.27-16.99); Mean Corpuscular HGB Conc 31.6 g/dL (30-55); Mean Corpuscular Hemoglobin 27.4 pg (27-33); Mean Corpuscular Volume 86.5 fl (85-98); Nucleated Red Blood Cells % 0 %; Platelet Count 161 10^3/cmm (157-399); Red Blood Count 4.68 10^6/uL (3.85-5.65); White Blood Count 9.10 10^3/uL (3.29-11.43)
--- NOTE | 2024-12-14 22:04 | ED_ITS ---
HPI - Chest Pain 2 General: Chief Complaint: Chest Pain Stated Complaint: CP Time Seen by Provider: 12/14/24 21:14 History of Present Illness: his 79-year-old female with a history of dementia presents with chest and abdominal pain that began this afternoon around 2 PM. The patient was initially sitting and watching movies when the pain started. The pain began in her chest and was described as a squeezing sensation, which was the only descriptor the patient could articulate due to her cognitive impairment. She also reported difficulty breathing when the pain was at its most intense. The pain subsequently migrated to her abdominal area, specifically the epigastric region. The caregiver noted that the patient had been intermittently bringing her hands to her chest throughout the day since approximately 11 AM, suggesting a gradual onset. The intense pain lasted approximately 2 hours. The patient had been snacking throughout the day, and the major pain episode occurred when they were sitting down for dinner. She vomited once en route to the hospital after having milk for dinner. The patient denies fever, cough, diarrhea, and reports no significant nausea. She occasionally has loose stools, which is reportedly normal for her, especially with environmental changes. There is some uncertainty regarding dysuria. Due to her dementia and Alzheimer's disease, the patient has difficulty articulating her symptoms clearly. Related Data Home Medications ?Medication ?Instructions ?Recorded ?Confirmed cholecalciferol (vitamin D3) 25 25 mcg PO DAILY 01/09/23 mcg (1,000 unit) capsule (Vitamin D3) fish oil-dha-epa 1,200 mg-144 1 cap PO DAILY 07/29/19 01/09/23 mg-216 mg capsule potassium chloride 20 mEq 20 meq PO DAILY 07/29/1903/23 tablet,extended release baclofen 10 mg tablet 10 mg PO DAILY PRN muscle sp asm 11/04/19 01/09/23 quinapril 40 mg tablet 40 mg PO DAILY 11/04/1912/30 coffee 100 mg theanine 200 mg 1 cap PO DAILY 08/10/20 01/09/23 superoxide dismutase 10 mg capsule (Neuriva De-Stress) glimepiride 2 mg tablet 2 mg PO DAILY 08/10/2001/08 hydrocodone 5 mg-acetaminophen 325 1 tab PO TID PRN Pa in 04/12/21 09/11/23 mg tablet metformin 500 mg tablet,extended 500 mg PO BID 1 01/09/24 release 24hr (osmotic) tizanidine 4 mg tablet 4 mg PO TID PRN 08/10/2003/23 Previous Rx's ?Medication ?Instructions ?Recorded pantoprazole 40 mg tablet,delayed 40 mg PO DAILY #30 t abs 09/09/19 release rifaximin 550 mg tablet (Xifaxan) 550 mg PO TID #42 ta bs 10/09/19 isosorbide mononitrate 120 mg 120 mg PO DAILY 90 days #90 tabs 01/16/20 tablet,extended release 24 hr amlodipine 10 mg tablet 10 mg PO DAILY #90 tabs 07/30 06/21 atenolol 25 mg tablet 25 mg PO DAILY #90 tabs 07/30 06/21 atorvastatin 40 mg tablet 40 mg PO DAILY #90 tabs 07/30 06/21 clopidogrel 75 mg tablet (Plavix) 75 mg PO DAILY #90 t abs 08/10/20 furosemide 40 mg tablet 40 mg PO DAILY #90 tabs 07/30 06/21 ranolazine 500 mg tablet,extended 500 mg PO BID #180 t abs 08/10/20 release,12 hr (Ranexa) donepezil 23 mg tablet See Rx Instructions .Route 0 01/09/24 .COMPLEX #180 tabs memantine 10 mg tablet 10 mg PO BID #180 tabs 01/08 quetiapine 25 mg tablet (Seroquel) 25 mg PO BID #60 ta bs 01/09/24 Allergies Allergy/AdvReac Type Severity Reaction Status Date / Time amoxicillin Allergy ALGY-Hives Verified 01/09/24 10:40 aspirin (From Aggrenox) Allergy Unknown Verified 01/09/24 10:40 Cephalosporins Allergy Unknown Verified 01/09/24 10:40 dipyridamole (From Aggrenox) Allergy Unknown Verified 01/09/24 10:40 glimepiride (From Amaryl) Allergy Unknown Verified 01/09/24 10:40 levofloxacin (From Levaquin) Allergy Unknown Verified 01/09/24 10:40 pregabalin (From Lyrica) Allergy Unknown Verified 01/09/24 10:40 procaine (From Novocain) Allergy Unknown Verified 01/09/24 10:40 sumatriptan (From Imitrex) Allergy ALGY-Rash Verified 01/09/24 10:40 Review of Systems 2 Narrative: Positive for chest pain with squeezing quality Positive for abdominal pain, epigastric region Positive for dyspnea during pain episode Positive for one episode of vomiting Negative for fever Negative for cough Negative for diarrhea Negative for significant nausea Occasional loose stools (baseline for patient) Possible dysuria (patient uncertain) Negative for back pain PFSH ED 2 PFSH: Medical History SOB (shortness of breath) Old cerebrovascular accident (CVA) without late effect Dyslipidemia Benign essential hypertension with target blood pressure below 140/90 Abdominal pain Rotator cuff arthropathy of right shoulder Tubal infertility in female Surgical History History of carpal tunnel surgery H/O thyroidectomy H/O: hysterectomy H/O knee surgery History of cholecystectomy H/O eye surgery H/O mastoidectomy History of appendectomy H/O mastectomy H/O colonoscopy Family History Sister Cancer Mother Cancer Daughter Cancer Denies family history of Diabetes CAD (coronary artery disease) Clotting disorder Dementia Chronic kidney disease (CKD) Suicide Anesthesia complication Bleeding disorder Lung disease Stroke Social History (Updated 12/15/24 @ 02:24 by Darryl Shah MD) Smoking and tobacco/nicotine status: never used tobacco/nicotine Alcohol intake: former Substance/Drug Use: never Additional social history: Patient does not use any drugs alcohol, illicits or smoke. CODE STATUS is DNR as discussed with patient's daughter. This is on 12/15/2024 with Darryl Shah MD patient's past employment included working for [employer] in the [employer] Physical Exam 2 Narrative: EXAM NARRATIVE: General: Patient appears uncomfortable, hands noted to be cold Pulmonary: Lung sounds clear bilaterally Cardiovascular: Heart sounds normal Abdomen: Distended appearance, epigastric tenderness to palpation, mild tenderness in lower abdomen Extremities: Feet with baseline swelling, no acute change noted Patient able to follow simple commands and lean forward for examination Const: GENERAL APPEARANCE: cooperative and well kempt HENMT: COMMON NORMALS: normocephalic, atraumatic and Normal external nose present HEAD & SCALP: normocephalic and atraumatic FACE & SINUS: normal facial exam and face symmetric NOSE: Normal external nose present Eye: COMMON NORMALS: Equal, round and reactive pupils present and EOMs intact bilaterally PUPIL: Yes Equal, round and reactive pupils present Neck/C-Spine: GENERAL: Yes trachea midline Chest: CHEST: Yes Symmetrical chest wall rise Resp: COMMON NORMALS: normal respiratory effort, No retractions, No use of accessory muscles and clear to auscultation bilaterally AUSCULTATION: clear to auscultation bilaterally Cardio: COMMON NORMALS: regular rate and regular rhythm RATE: regular rate RHYTHM: regular rhythm GI: COMMON NORMALS: Soft to palpation PALPATION: Yes Soft to palpation and Yes Tenderness to palpation present (GI) (Mainly epigastric) Extremity: COMMON NORMALS: no pedal edema Neuro: ESTELA COMA SCALE: document GCS findings [place] coma scale eye opening: Spontaneous [place] coma scale verbal response: Orientated [place] coma scale motor response: Obey commands [place] coma scale total score: 15 S ENSORY EXAM: Yes extremities (intact) Psych: COMMON NORMALS: speech normal APPEARANCE: Yes well kempt SPEECH: Yes normal speech Skin: COMMON NORMALS: no rashes or lesions noted GENERAL SKIN EXAM: no rashes or lesions noted Course 2 Vital Signs: Vital signs: Vital Signs Temperature 98.7 F 12/15/24 03:12 Pulse Rate 59 L 12/15/24 04:00 Respiratory Rate 18 12/15/24 04:00 Blood Pressure 166/84 12/15/24 04:00 Pulse Oximetry 95 12/15/24 04:00 Oxygen Delivery Me thod Room Air 12/15/24 04:00 MDM - Chest Pain Medical Decision Making 1. Chest pain with abdominal pain in elderly patient with dementia: - Differential diagnosis includes gastroesophageal causes, cardiac etiology, or gastrointestinal pathology - Chest X-ray obtained and pending review - Laboratory studies ordered including cardiac markers and basic metabolic panel - Monitor vital signs and oxygen saturation - Pain management as appropriate No significant change after GI cocktail. Patient is found to have no acute ST-T wave changes on EKG. Baseline troponin is 11, with a 2-hour delta of 1.1. White blood cell count is 6.8. Liver enzymes are not remarkable. However, lipase is 10,000. CT shows acute interstitial pancreatitis. Patient is on a couple of different medications that could be contributing including metformin and donepezil. She will be admitted for IV fluid support, gut rest, etc. Hospitalist has seen the patient. Lab Data 12/15/24 03:26 12/14/24 21:50 Radiology Impressions Chest X-Ray 12/14/24 21:06 IMPRESSION: No acute cardiopulmonary process demonstrated. Abdomen/Pelvis CT 12/14/24 23:07 IMPRESSION: 1. Findings above related to acute interstitial pancreatitis. No focal fluid collections to suggest pancreatic pseudocyst at this time. 2. There is low-density lesions of the pancreatic tail. Concerning for side branch IPMNs. Follow up with MRCP can be performed. 3. Correlate with urinalysis to exclude cystitis. 4. Lingular nodular opacities reflecting atelectasis versus infiltrates. Correlate clinically. COMMENTS: Consistent with the [employer]'s Incidental Findings Committee white paper (J Am Salvador Radiol 2018): Any incidental renal lesion less than 1 cm or classified as too small to characterize, or any incidental cystic renal lesion characterized as simple-appearing, is likely benign. No follow-up imaging is recommended for these lesions per consensus recommendations based on imaging criteria. Laboratory Results WBC 9.10 10^3/uL (3.29-11.43) 12/14/24 21:50 RBC 4.68 10^6/uL (3.85-5.65) 12/14/24 21:50 Hgb 12.80 g/dL (11.27-16.99) 12/14/24 21:50 Hct 40.5 % (36-47) 12/14/24 21:50 MCV 86.5 fl (85-98) 12/14/24 21:50 MCH 27.4 pg (27-33) 12/14/24 21:50 MCHC 31.6 g/dL (30-55) 12/14/24 21:50 RDW 14.4 % (12.1-15.1) 12/14/24 21:50 Plt Count 161 10^3/cmm (157-399) 12/14/24 21:50 MPV 10.4 fL (7.4-10.4) 12/14/24 21:50 Neut % (Auto) 84.6 % 12/14/24 21:50 Lymph % (Auto) 9.7 % 12/14/24 21:50 [place] % (Auto) 4.8 % 12/14/24 21:50 Eos % (Auto) 0.4 % 12/14/24 21:50 Baso % (Auto) 0.3 % 12/14/24 21:50 Neut # (Auto) 7.69 10^3/uL (1.8-7.7) 12/14/24 21:50 Lymph # (Auto) 0.9 10^3/uL (0.8-4.8) 12/14/24 21:50 [place] # (Auto) 0.4 10^3/uL (0.2-0.9) 12/14/24 21:50 Eos # (Auto) 0.0 10^3/uL (0.0-0.8) 12/14/24 21:50 Baso # (Auto) 0.0 10^3/uL (0.0-0.1) 12/14/24 21:50 Nucleated RBC % (auto) 0 % 12/14/24 21:50 Nucleated RBCs # 0.0 /100WBC 12/14/24 21:50 PT 13.30 SECONDS (12.1-14.9) 12/14/24 21:50 INR 0.94 (0.8-1.2) 12/14/24 21:50 Sodium 140 mmol/L (136-145) 12/14/24 21:50 Potassium 3.9 mmol/L (3.5-5.1) 12/14/24 21:50 Chloride 99 mmol/L (98-107) 12/14/24 21:50 Carbon Dioxide 24 mmol/L (22-29) 12/14/24 21:50 Anion Gap 20.9 (5-19) H 12/14/24 21:50 BUN 13 mg/dL (8-23) 12/14/24 21:50 Creatinine 0.8 mg/dL (0.5-0.9) 12/14/24 21:50 GFR Calculation Not Reportable 12/14/24 21:50 Glucose 211 mg/dL (65-115) H 12/14/24 21:50 Calculated Osmolality 296 mOsm/kg (285-295) H 12/14/24 21:50 Calcium 9.1 mg/dL (8.5-10.5) 12/14/24 21:50 Total Bilirubin 0.5 mg/dL (0.15-1.2) 12/14/24 21:50 AST 21 U/L (0-32) 12/14/24 21:50 ALT 17 U/L (0-33) 12/14/24 21:50 Alkaline Phosphatase 74 U/L (35-105) 12/14/24 21:50 Troponin T Baseline 11 ng/L (0-10) H 12/14/24 21:50 Troponin T 120 Minute 10.19 ng/L (0-10) H 12/14/24 00:18 Delta Troponin T 1.1 ABS# (0-10) 12/14/24 00:18 NT-Pro-B Natriuret Pep 159 pg/mL (0-450) 12/14/24 21:50 Total Protein 6.9 g/dL (6.6-8.7) 12/14/24 21:50 Albumin 4.4 g/dL (3.5-5.2) 12/14/24 21:50 Globulin 2.5 g/dL (1.3-4.6) 12/14/24 21:50 Lipase 23750 U/L (13-60) H 12/14/24 21:50 Urine Color Yellow (Yellow) 12/14/24 22:50 Urine Appearance Clear (CLEAR) 12/14/24 22:50 Urine pH 5.5 (5-7) 12/14/24 22:50 Ur Specific [place] 1.027 (1.005-1.030) 12/14/24 22:50 Urine Protein 3+ (Negative) A 12/14/24 22:50 Urine Glucose (UA) 2+ (Normal) H 12/14/24 22:50 Urine Ketones Trace (Negative) 12/14/24 22:50 Urine Blood 2+ (Negative) A 12/14/24 22:50 Urine Nitrate Positive (Negative) A 12/14/24 22:50 Urine Bilirubin Negative (Negative) 12/14/24:50 Urine Urobilinogen 1.0 mg/dL (Negative) 12/14/24 22:50 Ur Leukocyte Esterase Negative (Negative) 12/14/24 22:50 Urine RBC 5-10 /hpf (0-2) H 12/14/24 22:50 Urine WBC 15-25 /hpf (0-5) H 12/14/24 22:50 Ur Squamous Epith Cells 3-5 /hpf (0-5) 12/14/24 22:50 Amorphous Sediment Not Reportable 12/14/24 22:50 Urine Bacteria 4+ /hpf (NONE) H 12/14/24 22:50 Urine Mucus 2+ /hpf 12/14/24 22:50 All radiology interpretation(s) finalized by discharge Discharge Plan Discharge Patient Disposition: Admitted As Inpatient Admit Provider: Darryl Shah Clinical Impression: Drug-induced acute pancreatitis Condition: Stable Coding Level of Care Code ED Network Project Manager for Sherie Arboleda
[2024-12-14] MEDS: lidocaine 2% viscous 15 ML, aluminum-mag hydrox-simethicon 30 ML, sucralfate oral liq 1 GM PO (22:08)
[2024-12-14 22:20] LABS: Troponin(5th) Baseline 11 ng/L (0-10)
[2024-12-14 22:47] LABS: Alanine Aminotransferase 17 U/L (0-33); Albumin Level 4.4 g/dL (3.5-5.2); Alkaline Phosphatase 74 U/L (35-105); Aspartate Amino Transferase 21 U/L (0-32); Blood Urea Nitrogen 13 mg/dL (8-23); Calcium 9.1 mg/dL (8.5-10.5); Carbon Dioxide 24 mmol/L (22-29); Chloride 99 mmol/L (98-107); Creatinine Clr Calc Pharmacy 69.0736; Globulin 2.5 g/dL (1.3-4.6); Glucose 211 mg/dL (65-115); NT Pro B Type Natriuretic Pept 159 pg/mL (0-450); Osmolality Calculated 296 mOsm/kg (285-295); Sodium 140 mmol/L (136-145); Total Protein 6.9 g/dL (6.6-8.7)
[2024-12-14 22:50] LABS: Anion Gap 20.9 (5-19); Potassium 3.9 mmol/L (3.5-5.1)
[2024-12-14 23:00] VITALS: BP 166/95; PULSE 65; RESP 16; O2SAT 95
[2024-12-14 23:02] LABS: Glucose Urine UA 2+ (Normal); Nitrate Urine Positive (Negative); Specific Gravity, Urine 1.027 (1.005-1.030)
[2024-12-14 23:04] LABS: Lipase 10107 U/L (13-60)
--- NOTE | 2024-12-14 23:07 | CTR_ITS ---
PROCEDURE INFORMATION: Exam: CT Abdomen And Pelvis With Contrast Exam date and time: 12/14/2024 11:23 PM Age: 79 years old Clinical indication: Pain and abnormal findings; Abnormal lab test; Elevated lipase; Abdominal pain; Prior surgery; Surgery date: 6+ months; Surgery type: Mastectomy. Gb. Hysterectomy; Epigastric pain with lipase over 10k. ; Additional info: Epigastric pain, elevated lipase TECHNIQUE: Imaging protocol: Computed tomography of the abdomen and pelvis with contrast. Radiation optimization: All CT scans at this facility use at least one of these dose optimization techniques: automated exposure control; mA and/or kV adjustment per patient size (includes targeted exams where dose is matched to clinical indication); or iterative reconstruction. Contrast material: OMNI 350; Contrast volume: 100 ml; Contrast route: INTRAVENOUS (IV); COMPARISON: CR (CHEST, ) 12/14/2024 9:20 PM RADIATION DOSE METRICS: Total DLP (mGy-cm): 924.07 FINDINGS: Lungs: Atelectasis and/or infiltrates at the lingula. Interstitial edema involving the pancreas. Liver: Hepatic steatosis. Gallbladder and biliary ducts: Status post cholecystectomy state. Pancreas: There are a few hypodensities in the pancreatic tail. Spleen: Normal. No splenomegaly. Adrenal glands: Normal. No mass. Kidneys and ureters: Renal cysts. No hydronephrosis. Stomach and bowel: There is likely secondary reactive duodenitis changes proximally. No bowel obstruction. Appendix: No evidence of appendicitis. Intraperitoneal space: Unremarkable. No free air. No significant fluid collection. Vasculature: Unremarkable. No abdominal aortic aneurysm. Lymph nodes: Unremarkable. No enlarged lymph nodes. Urinary bladder: The urinary bladder is underdistended. This limits its complete evaluation. There is perivesicular stranding however Reproductive: Unremarkable as visualized. Bones/joints: Unremarkable. No acute fracture. Soft tissues: Unremarkable. Other findings: No focal fluid collections to suggest pseudocyst at this time. CT/CT abdomen pelvis w con* [id number] IMPRESSION: 1. Findings above related to acute interstitial pancreatitis. No focal fluid collections to suggest pancreatic pseudocyst at this time. 2. There is low-density lesions of the pancreatic tail. Concerning for side branch IPMNs. Follow up with MRCP can be performed. 3. Correlate with urinalysis to exclude cystitis. 4. Lingular nodular opacities reflecting atelectasis versus infiltrates. Correlate clinically. COMMENTS: Consistent with the [employer]'s Incidental Findings Committee white paper (J Am Salvador Radiol 2018): Any incidental renal lesion less than 1 cm or classified as too small to characterize, or any incidental cystic renal lesion characterized as simple-appearing, is likely benign. No follow-up imaging is recommended for these lesions per consensus recommendations based on imaging criteria.
[2024-12-14] MEDS: iohexol 350 mg/mL 500 mL Btl (per mL) IV (23:25)
[2024-12-14 23:28] LABS: UA Slide Review UA Slide Review Perf
[2024-12-14 23:29] LABS: Add Urine Microscopic? YES; UA Manual Slide Review YES
[2024-12-14 23:30] LABS: Universal Test for UA Present (0)
--- NOTE | 2024-12-14 23:34 | ECG_ITS ---
[facility] Test Date: 2024-12-14 Pat Name: Raven Rocha Department: Room: Gender: Female Manager Pool: : [id number] Requested By: Segundo Garcia Order Number: [id number] Hudson MD: Sergio Whittington M.D. Measurements Intervals Sharon Rate: 68 P: 0 VA: 0 QRS: -53 QRSD: 176 T: 34 QT: 471 QTc: 501 Interpretive Statements Normal Sinus Rhythm FIRST DEGREE AV BLOCK RIGHT BUNDLE BRANCH BLOCK [120+ ms QRS DURATION, UPRIGHT V1, 40+ ms S IN I/aVL/V4/V5/V6] LEFT ANTERIOR FASCICULAR BLOCK [QRS AXIS <= -45, QR IN I, RS IN II] Compared to ECG 12/14/2024 20:36:42 Right bundle-branch block now present Left anterior fascicular block now present Sinus bradycardia no longer present Electronically Signed On 12-15-2024 18:01:27 CDT by Sergio Whittington M.D. [email or web address]
[2024-12-14 23:53] LABS: INR 0.94 (0.8-1.2); Prothrombin Time 13.30 SECONDS (12.1-14.9)
[2024-12-15] VITALS (12 sets, daily range): BP systolic 117–166; BP diastolic 55–84; PULSE 52–65; RESP 13–19; TEMP 36.4–37.1; O2SAT 92–99; BMI 36.6
[2024-12-15 01:09] LABS: Troponin 5 2HR 10.19 ng/L (0-10)
[2024-12-15 01:42] LABS: Troponin 5 2HR Delta 1.1 ABS# (0-10)
--- NOTE | 2024-12-15 02:18 | PM.HP ---
Providers/Chief Complaint Admitting Physician: Darryl Shah MD Primary Care Provider: Adrian Mcguire MD Chief Complaint: CP History of Present Illness Raven Rocha is a 79 year old female with history of dementia on multiple medications. She is a poor historian but family noted she was having abdominal and chest discomfort today while watching movies and began to collect her chest. Cardiac enzymes were normal or only barely at elevated at 11 despite having chest pain ongoing through the day. Her lipase is 10,000 alluding to pancreatitis diagnosis. Patient has had her gallbladder out and does not drink alcohol but she is on many medications that can cause pancreatitis these include atorvastatin, glimepiride, metformin, memantine, donepezil, Seroquel. It is hard to know which 1 alone or only in combination as cause of pancreatitis. Patient is a poor historian and reports that she is okay but then does admit she has abdominal pain. Patient lives with her daughter Hiral who is present at bedside. She is a after her in 2019. Patient had 1 episode of vomiting today Review of Systems Narrative: Positive for abdominal pain chest pain nausea other history difficult to obtain from this patient due to dementia Medications/Allergies Home Medications ?Medication ?Instructions ?Recorded ?Confirmed ?Last Taken ?Type cholecalciferol (vitamin D3) 25 25 mcg PO DAILY 07/29/19 01/09/23 09/07/19 History mcg (1,000 unit) capsule (Vitamin D3) fish oil-dha-epa 1,200 mg-144 1 cap PO DAILY 07/29/19 01/09/23 09/07/19 History mg-216 mg capsule potassium chloride 20 mEq 20 meq PO DAILY 07/29/19 01/09/23 09/08/19 History tablet,extended release pantoprazole 40 mg tablet,delayed 40 mg PO DAILY #30 tabs 09/09/19 01/09/24 Unknown Rx release rifaximin 550 mg tablet (Xifaxan) 550 mg PO TID #42 tabs 10/09/19 01/09/23 Unknown Rx baclofen 10 mg tablet 10 mg PO DAILY PRN muscle spasm 11/04/19 01/09/23 Unknown History quinapril 40 mg tablet 40 mg PO DAILY 11/04/19 01/09/23 Unknown History isosorbide mononitrate 120 mg 120 mg PO DAILY 90 days #90 tabs 01/16/20 01/09/24 Unknown Rx tablet,extended release 24 hr amlodipine 10 mg tablet 10 mg PO DAILY #90 tabs 08/10/20 01/09/23 Unknown Rx atenolol 25 mg tablet 25 mg PO DAILY #90 tabs 08/10/20 01/09/23 Unknown Rx atorvastatin 40 mg tablet 40 mg PO DAILY #90 tabs 08/10/20 01/09/24 Unknown Rx clopidogrel 75 mg tablet (Plavix) 75 mg PO DAILY #90 tabs 08/10/20 01/09/24 Unknown Rx coffee 100 mg theanine 200 mg 1 cap PO DAILY 08/10/20 01/09/23 Unknown History superoxide dismutase 10 mg capsule (Neuriva De-Stress) furosemide 40 mg tablet 40 mg PO DAILY #90 tabs 08/10/20 01/09/24 Unknown Rx glimepiride 2 mg tablet 2 mg PO DAILY 08/10/20 01/09/24 Unknown History hydrocodone 5 mg-acetaminophen 325 1 tab PO TID PRN Pain 08/10/20 01/09/23 Unknown History mg tablet metformin 500 mg tablet,extended 500 mg PO BID 08/10/20 01/09/24 Unknown History release 24hr (osmotic) ranolazine 500 mg tablet,extended 500 mg PO BID #180 tabs 08/10/20 01/09/23 Unknown Rx release,12 hr (Ranexa) tizanidine 4 mg tablet 4 mg PO TID PRN 08/10/20 01/09/23 Unknown History donepezil 23 mg tablet See Rx Instructions .Route 01/09/24 01/09/24 Unknown Rx .COMPLEX #180 tabs memantine 10 mg tablet 10 mg PO BID #180 tabs 01/09/24 01/09/24 Unknown Rx quetiapine 25 mg tablet (Seroquel) 25 mg PO BID #60 tabs 01/09/24 01/09/24 Unknown Rx Allergies Allergy/AdvReac Type Severity Reaction Status Date / Time amoxicillin Allergy ALGY-Hives Verified 01/09/24 10:40 aspirin (From Aggrenox) Allergy Unknown Verified 01/09/24 10:40 Cephalosporins Allergy Unknown Verified 01/09/24 10:40 dipyridamole (From Aggrenox) Allergy Unknown Verified 01/09/24 10:40 glimepiride (From Amaryl) Allergy Unknown Verified 01/09/24 10:40 levofloxacin (From Levaquin) Allergy Unknown Verified 01/09/24 10:40 pregabalin (From Lyrica) Allergy Unknown Verified 01/09/24 10:40 procaine (From Novocain) Allergy Unknown Verified 01/09/24 10:40 sumatriptan (From Imitrex) Allergy ALGY-Rash Verified 01/09/24 10:40 PFSH Acute PFSH: Medical History (Updated 12/15/24 @ 02:28 by Darryl Shah MD) Obesity (BMI 30-39.9) SOB (shortness of breath) Old cerebrovascular accident (CVA) without late effect Dyslipidemia Benign essential hypertension with target blood pressure below 140/90 Abdominal pain Rotator cuff arthropathy of right shoulder Tubal infertility in female Surgical History History of carpal tunnel surgery H/O thyroidectomy H/O: hysterectomy H/O knee surgery History of cholecystectomy H/O eye surgery H/O mastoidectomy History of appendectomy H/O mastectomy H/O colonoscopy Family History Sister Cancer Mother Cancer Daughter Cancer Denies family history of Diabetes CAD (coronary artery disease) Clotting disorder Dementia Chronic kidney disease (CKD) Suicide Anesthesia complication Bleeding disorder Lung disease Stroke Social History (Updated 12/15/24 @ 02:24 by Darryl Shah MD) Smoking and tobacco/nicotine status: never used tobacco/nicotine Alcohol intake: former Substance/Drug Use: never Additional social history: Patient does not use any drugs alcohol, illicits or smoke. CODE STATUS is DNR as discussed with patient's daughter. This is on 12/15/2024 with Darryl Shah MD patient's past employment included working for [employer] in the [employer] Vitals/I&O/Wt Last Vital Signs Temp 98.2 F 12/14/24 20:38 Pulse 59 L 12/15/24 02:00 Resp 19 H 12/15/24 02:00 BP 152/81 12/15/24 02:00 Pulse Ox 95 12/15/24 02:00 O2 Del Method Room Air 12/15/24 02:00 Weight last 48 hrs Weight 99.79 kg Physical Exam Narrative: General Well-developed well-nourished obese female in no acute cardiopulmonary stress CV regular rate and rhythm Lungs clear to auscultation bilaterally Back no CVA tenderness Abdomen positive bowel tones soft with upper epigastric tenderness most notable but also bilateral upper quadrant tenderness Calves 1+ edema Skin warm and dry Mentation she is alert and oriented to person but not place date or situation. Patient recognized her daughter but did not recognize her [id number] who was present at bedside Data 12/14/24 21:50 12/14/24 21:50 A&P Assessment and plan 1. Drug-induced acute pancreatitis: Patient has multiple medications that could be causing pancreatitis. I have held most of them for now but she needs Seroquel to help her sleep and not be confused or agitated. Donepezil and memantine are held for now 2. Diabetes: Metformin and glimepiride held for now due rare association with pancreatitis patient is not on GLP-1 which carries a higher risk of pancreatitis 3. Dyslipidemia: Atorvastatin has been implicated with rare pancreatitis as well and is currently held. 4. Alzheimer disease: Memantine and donepezil he will due to rare associated with pancreatitis 5. Benign essential hypertension with target blood pressure below 140/90: Continue amlodipine metoprolol all and quinapril. Notably amlodipine and metoprolol have been implicated with rare pancreatitis. 6. Obesity (BMI 30-39.9): N.p.o. for now but once eating would recommend weight loss diet and this was discussed with the daughter. Patient does go to kitchen and pantry sometimes to search for food per daughter Plan: Many of her medications carry small or rare chance of associated with pancreatitis. She will be n.p.o. with IV fluids she does not have a gallbladder already previously removed. PDMP PDMP Reviewed: Not Reviewed Attestations Medical Necessity Statement*: Patient is admitted to hospital with pancreatitis and will require greater than 2 midnights Coding Level of Care Code Acute Code for g Fwd Diagnoses Drug-induced acute pancreatitis K85.30 Diabetes E11.9 Dyslipidemia E78.5 Alzheimer disease G30.9; F02.80 Benign essential hypertension with target blood pressure below 140/90 I10 Obesity (BMI 30-39.9) E66.9 Time Spent (min) 70
--- NOTE | 2024-12-15 03:06 | ECG_ITS ---
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 Measurements Intervals Isabella Rate: 59 P: 72 NJ: 203 QRS: -31 QRSD: 117 T: 65 QT: 451 QTc: 449 Interpretive Statements SINUS BRADYCARDIA LEFT AXIS DEVIATION [QRS AXIS < -30] MODERATE INTRAVENTRICULAR CONDUCTION DELAY [110+ ms QRS DURATION] Compared to ECG 12/14/2024 23:34:02 Left-axis deviation now present Intraventricular conduction delay now present Right bundle-branch block no longer present Electronically Signed On 12-15-2024 18:06:10 CDT by Sergio Whittington M.D. [email or web address]
[2024-12-15 03:35] LABS: Hematocrit 37.8 % (36-47); Hemoglobin 12.10 g/dL (11.27-16.99); Mean Corpuscular HGB Conc 32.0 g/dL (30-55); Mean Corpuscular Hemoglobin 27.4 pg (27-33); Mean Corpuscular Volume 85.7 fl (85-98); Nucleated Red Blood Cells % 0 %; Platelet Count 152 10^3/cmm (157-399); Red Blood Count 4.41 10^6/uL (3.85-5.65); White Blood Count 6.79 10^3/uL (3.29-11.43)
[2024-12-15] MEDS: sodium chlor 0.9% + KCl 20 mEq 20 MEQ/1,000 ML BAG 100 MEQ IV ×2 (03:48→14:38)
[2024-12-15 03:56] LABS: Troponin 5 6HR 9.95 ng/L (0-10)
[2024-12-15 04:00] LABS: Troponin 5 6HR Delta -1.05 ng/L (0-12)
[2024-12-15 05:02] LABS: Alanine Aminotransferase 15 U/L (0-33); Albumin Level 4.2 g/dL (3.5-5.2); Alkaline Phosphatase 69 U/L (35-105); Anion Gap 14.7 (5-19); Aspartate Amino Transferase 15 U/L (0-32); Blood Urea Nitrogen 15 mg/dL (8-23); Calcium 8.8 mg/dL (8.5-10.5); Carbon Dioxide 26 mmol/L (22-29); Chloride 103 mmol/L (98-107); Creatinine Clr Calc Pharmacy 69.0736; Globulin 1.8 g/dL (1.3-4.6); Glucose 174 mg/dL (65-115); Magnesium 2.0 mg/dL (1.7-2.3); Osmolality Calculated 295 mOsm/kg (285-295); Potassium 3.7 mmol/L (3.5-5.1); Sodium 140 mmol/L (136-145); Total Protein 6.0 g/dL (6.6-8.7)
[2024-12-15 05:26] LABS: Lipase 2160 U/L (13-60)
--- NOTE | 2024-12-15 11:52 | PM.MISC ---
Miscellaneous Note Note: seen this am Positive nitrates 2+ blood, 1525 WBCs, 4+ bacteria. Patient has not been given any antibiotics for UTI yet. It seems that patient has quite a bit of allergies. I am unclear on what the allergies are. We may try a trial dose of ceftriaxone and if no reaction within 30 minutes may consider giving the full 1 g dose. I will discuss with pharmacy. We will also look in her system if she is ever had ceftriaxone before. Options are quite limited since levofloxacin cephalosporin amoxicillin are all listed as an allergy. However it is listed as unknown in the chart. Patient does have history of dementia and is on memantine at home. No family present at bedside. I will try calling patient's daughter to ask if she is aware of her allergies. Lipase down to 2100. Otherwise continue to manage for pancreatitis. Cause unknown however possibly drug-induced. She still has epigastric tenderness. I would continue n.p.o. status. Gradually transition to clear liquid by tomorrow.
[2024-12-15] MEDS: aztreonam 1,000 MG in sodium chloride 0.9% (plus) 50 ML 100 MG IV (13:06)
--- OUTSIDE RECORDS SUMMARY | 2024-12-15 14:53 | XMS_ITS | Clinical Summary ---
Author Organization [facility] Address [address] 

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
--- OUTSIDE RECORDS SUMMARY | 2024-12-15 14:53 | XMS_ITS | Encounter Summary ---
Author Organization [facility] Address [address] [place] [address] Care Team Providers Care High School Director Name Role Phone Unavailable Primary Care Provider Unavailabl e Encounter Details Date Type Department Care Team (Latest Contact Info) Description 09/26/2001 Outpatient Historical [facility] Medicine [place] [address] [facility] [address] [place] [address] Bienvenido Carbajal MD SCREENING MAL NEOP-COLON (Primary Dx) Social History Tobacco Use Types Packs/Day Years Used Date Smoking Tobacco: Never Assessed Comments Unknown Sex and Gender Information Value Date Recorded Sex Assigned at Not on file 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
--- OUTSIDE RECORDS SUMMARY | 2024-12-15 14:53 | XMS_ITS | Patient Health Record ---
Author Organization [facility] Address [address] [facility] [place] [address] Care Team Providers Care Marble Cutter Name Role Phone Ramirez Santana Primary Care [...] 40 MG Oral Tablet 12/25/2017 Active Pyridostigmine [place] 60 MG Oral Tablet Pyridostigmine [place] 60 MG Oral Tablet 12/25/2017 Active 24 HR Metoprolol Tartrate 25 MG Extended Release Tablet 24 HR Metoprolol Tartrate 25 MG Extended Release Tablet 12/25/2017 Active Potassium Chloride 1.33 MEQ Oral Tablet Potassium Chloride 1.33 MEQ Oral Tablet 12/25/2017 Active Immunizations Vaccine Route Administration Date Status Comme nts Influenza (whole), CPT 99404 Inactive Unknown 02/22/2018 Administered Social History Social History Additional Details Category Social Info Options Details zzMigrated Social History Migrated Social History Smoking Status:Never smoked tobacco (finding) Plan Of Treatment No Information
--- OUTSIDE RECORDS SUMMARY | 2024-12-15 14:53 | XMS_ITS | Encounter Summary ---
Author Organization [facility] Address [address] [place] [address] Care Team Providers Care Shipping Hand Name Role Phone Unavailable Primary Care Provider Unavailabl e Encounter Details Date Type Department Care Team (Late st Contact Info) Description 12/02/2002 Outpatient Historical [facility] [place] [address] 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
--- NOTE | 2024-12-15 15:27 | PC.NURSE ---
received from er via stretcher at 1510.report received.pt has hx of dementia.is confused to place,date,year,time,situation.does appear to be oriented to name.sr on monitor.appears comfortable at present.
--- NOTE | 2024-12-15 15:31 | PC.NURSE ---
admission questions were answered by pt's dpoa and cg..suhail.
[2024-12-16] MEDS: aztreonam 1,000 MG in sodium chloride 0.9% (plus) 50 ML 100 MG IV ×2 (00:24→12:05)
[2024-12-16] MEDS: sodium chlor 0.9% + KCl 20 mEq 20 MEQ/1,000 ML BAG 100 MEQ IV (00:24)
[2024-12-16 04:00] VITALS: BP 147/73; PULSE 65; RESP 21; TEMP 36.5; O2SAT 93
[2024-12-16 07:28] VITALS: BP 143/58; PULSE 58; RESP 23; TEMP 36.6; O2SAT 93
--- NOTE | 2024-12-16 11:28 | MR_ITS ---
WS: [id number] MRI/MRCP OF THE ABDOMEN WITHOUT GADOLINIUM ENHANCEMENT TECHNIQUE: Coronal T2 Fase BH, Axial T2 Fase BH, Axial T2 FS BH, Zxial 3D Kennedy BH, Axial DWI BH, 2D MRCP Radial BH, 3D MRCP (Resp), and Axial 3D Dyn BH Post sequences. CLINICAL INFORMATION: IPMN suspicion COMPARISON: 12/14/2024 CT FINDINGS: Very limited study due to motion and respiratory artifact Diffuse edema involving the pancreas with peripancreatic fluid and edema compatible with known pancreatitis. No large pseudocyst visualized. Cystic lesions in the pancreatic tail difficult to visualize due to motion and respiratory artifact but have the appearance of sidebranch IPMNs. Recommend continued annual surveillance with contrast-enhanced CT. No hydronephrosis in either kidney. Partially visualized LEFT renal cyst. Tiny RIGHT renal cyst. Fatty liver. Prior cholecystectomy. Portal vein and splenic vein appear patent. Normal spleen. Small esophageal hiatal hernia. Normal caliber upper abdominal aorta. Adrenal glands are normal. Common bile duct appears patent where visualized. MR/MR MRCP 60055 Impression: Very limited study due to motion and respiratory artifact. Some clara ges are nondiagnostic. 1. Diffuse edema involving the pancreas compatible with known pancreatitis. 2. Cystic lobulated lesions involving the pancreatic tail most likely represen t sidebranch IPMNs. This is difficult to further evaluate due to motion. Recomm end 6 to 12-month follow-up with contrast-enhanced CT abdomen pelvis. 3. Prior cholecystectomy. 4. Fatty liver.
[2024-12-16 11:38] LABS: Hematocrit 34.9 % (36-47); Hemoglobin 10.80 g/dL (11.27-16.99); Mean Corpuscular HGB Conc 30.9 g/dL (30-55); Mean Corpuscular Hemoglobin 27.4 pg (27-33); Mean Corpuscular Volume 88.6 fl (85-98); Nucleated Red Blood Cells % 0 %; Platelet Count 137 10^3/cmm (157-399); Red Blood Count 3.94 10^6/uL (3.85-5.65); White Blood Count 4.95 10^3/uL (3.29-11.43)
--- NOTE | 2024-12-16 11:43 | P.PN_ITS ---
Subjective 2 Subjective: seen this morning pts epigastric pain has improved daughter at bedside updated will start clear liquids today Vitals/I&O/Wt Last Vital Signs Temp 97.9 F 12/16/24 07:28 Pulse 58 L 12/16/24 07:28 Resp 23 H 12/16/24 07:28 BP 143/58 12/16/24 07:28 Pulse Ox 93 12/16/24 07:28 O2 Del Method Room Air 12/16/24 04:00 12/15/24 12/16/24 12/16/24 22:59 06:59 14:59 Intake Total 1026.667 / 2076.667 Balance 1026.667 / 2076.667 Weight last 48 hrs Weight 104.961 kg Weight 104.961 kg Weight 104.961 kg Weight 103.107 kg Weight 99.79 kg Physical Exam 2 Narrative: General Well-developed well-nourished obese female in no acute cardiopulmonary stress CV regular rate and rhythm Lungs clear to auscultation bilaterally Abdomen positive bowel tones soft, non tender to palpation Calves 1+ edema Skin warm and dry Mentation, AO to self, recognizes her daughter Data 12/16/24 11:31 12/15/24 03:26 A&P Assessment and plan 1. Drug-induced acute pancreatitis: Patient has multiple medications that could be causing pancreatitis. I have held most of them for now but she needs Seroquel to help her sleep and not be confused or agitated. Donepezil and memantine are held for now 2. Diabetes: Metformin and glimepiride held for now due rare association with pancreatitis patient is not on GLP-1 which carries a higher risk of pancreatitis 3. Dyslipidemia: Atorvastatin has been implicated with rare pancreatitis as well and is currently held. 4. Alzheimer disease: Memantine and donepezil he will due to rare associated with pancreatitis 5. Benign essential hypertension with target blood pressure below 140/90: Continue amlodipine metoprolol all and quinapril. Notably amlodipine and metoprolol have been implicated with rare pancreatitis. 6. Obesity (BMI 30-39.9): N.p.o. for now but once eating would recommend weight loss diet and this was discussed with the daughter. Patient does go to kitchen and pantry sometimes to search for food per daughter Plan: Many of her medications carry small or rare chance of associated with pancreatitis. She will be n.p.o. with IV fluids she does not have a gallbladder already previously removed. 12/16/2024 ct abd pelvis shows possible IPMN at tail of pancreas, will check MRCP for further diagnosis, may require ERCP depending on results of MRCP continue on NS @ 75 cc/hr. pt on lasix at home start clear liquid diet continue plavix, atovastatin, imdur hold memantine at this time will continue on amlodipine 5 daily PDMP PDMP Reviewed: Not Reviewed Attestations 2 Medical Necessity Statement*: Patient is admitted to hospital with pancreatitis and will require greater than 2 midnights Diagnoses Drug-induced acute pancreatitis K85.30 Diabetes E11.9 Dyslipidemia E78.5 Alzheimer disease G30.9; F02.80 Benign essential hypertension with target blood pressure below 140/90 I10 Obesity (BMI 30-39.9) E66.9
[2024-12-16 11:55] LABS: Anion Gap 14.1 (5-19); Blood Urea Nitrogen 9 mg/dL (8-23); Calcium 8.3 mg/dL (8.5-10.5); Carbon Dioxide 22 mmol/L (22-29); Chloride 109 mmol/L (98-107); Creatinine Clr Calc Pharmacy 70.9660; Glucose 132 mg/dL (65-115); Magnesium 2.0 mg/dL (1.7-2.3); Osmolality Calculated 293 mOsm/kg (285-295); Potassium 4.1 mmol/L (3.5-5.1); Sodium 141 mmol/L (136-145)
[2024-12-16 12:00] VITALS: BP 132/61; PULSE 67; RESP 24; O2SAT 93
--- NOTE | 2024-12-16 13:50 | PC.NURSE ---
updated family talked to tr olamide about the ordered mr mrcp for her mother to further evaluate the pancreatitis. Discuss to olamide via the phone# provided about the MRI screening questions. Questions asked and reviewed screening.
[2024-12-16 15:53] VITALS: BP 120/48; PULSE 57; RESP 22; TEMP 36.6; O2SAT 96
[2024-12-16 19:45] VITALS: BP 128/69; PULSE 73; RESP 17; TEMP 36.8; O2SAT 93
[2024-12-16 23:13] VITALS: BP 146/79; PULSE 62; RESP 17; TEMP 36.4; O2SAT 92
[2024-12-17] MEDS: aztreonam 1,000 MG in sodium chloride 0.9% (plus) 50 ML 100 MG IV (00:57)
[2024-12-17 03:41] VITALS: BP 107/63; PULSE 63; RESP 16; TEMP 36.9; O2SAT 92
[2024-12-17 04:06] LABS: Hematocrit 32.5 % (36-47); Hemoglobin 10.40 g/dL (11.27-16.99); Mean Corpuscular HGB Conc 32.0 g/dL (30-55); Mean Corpuscular Hemoglobin 28.0 pg (27-33); Mean Corpuscular Volume 87.4 fl (85-98); Nucleated Red Blood Cells % 0 %; Platelet Count 135 10^3/cmm (157-399); Red Blood Count 3.72 10^6/uL (3.85-5.65); White Blood Count 4.23 10^3/uL (3.29-11.43)
[2024-12-17 04:27] LABS: Alanine Aminotransferase 10 U/L (0-33); Albumin Level 3.3 g/dL (3.5-5.2); Alkaline Phosphatase 60 U/L (35-105); Anion Gap 13.7 (5-19); Aspartate Amino Transferase 12 U/L (0-32); Blood Urea Nitrogen 7 mg/dL (8-23); Calcium 8.5 mg/dL (8.5-10.5); Carbon Dioxide 21 mmol/L (22-29); Chloride 112 mmol/L (98-107); Creatinine Clr Calc Pharmacy 70.9660; Globulin 2.1 g/dL (1.3-4.6); Glucose 127 mg/dL (65-115); Magnesium 2.1 mg/dL (1.7-2.3); Osmolality Calculated 296 mOsm/kg (285-295); Potassium 3.7 mmol/L (3.5-5.1); Sodium 143 mmol/L (136-145); Total Protein 5.4 g/dL (6.6-8.7)
[2024-12-17 07:43] VITALS: BP 112/57; PULSE 61; RESP 20; TEMP 36.6; O2SAT 91
[2024-12-17 09:17] LABS: Estmated Average Glucose 126; Hemoglobin A1C 6.0 % (4.0-6.0)
[2024-12-17 09:42] LABS: Iron 36 ug/dL (37-145); Thyroid Stimulating Hormone 4.25 uIU/mL (0.27-4.20); Total Iron Binding Capacity 245 mcg/dl; Unsaturated Iron Binding 209 ug/dL (112-347); Vitamin B12 302 pg/mL (232-1245)
--- NOTE | 2024-12-17 09:54 | PC.CHAP ---
Pastoral Care Encounter/Spiritual Assessment Type of Contact [] Declined entry level electrical engineer visit [] Patient/Family/Request visit [] Outpatient visit [] Follow-up visit [] Physician referral [] Code/Alert [] Routine visit [] Staff referral [] Actively dying [x] Patient sleeping [] Family support [] [] Out of room [] Palliative care [] [] Receiving care in room [] Pre-surgical visit [] Trauma [] Long length of stay [] ICU visit [] Other: Relational/Emotional Strength [] Patient feels connected with others/family/visitors/staff [] Distress [] Loneliness/isolation [] Abandonment Spirituality of Patient [] Person of Marisela [] Attends Yazidism of their Marisela [] Believes in Prayer [] Reads Bible or Episcopal materials [] There are Spiritual issues to be addressed Rug Cleaner Helper Interventions [] Prayer [] Active listening [] Non-anxious presence [] Spiritual/emotional support [] Crisis/trauma care [] Spiritual counseling [] Bereavement support [] Provided bereavement packet [] Provided Bible/devotional materials [] Provided toy/stuffed animal, coloring book to patient or family member [] Provided Communion [] Anointing/Birch Tree [] Salvation [] Completed spiritual assessment [] Other: Impact on Illness or Injury [] Angry [] Fearful [] Anxious [] Often cries [] Exhaustion [] Unable to work [] Unable to attend sikhism [] Unable to walk/stand [] Unable to read [] Unable to drive [] Unable to eat/drink [] Unable to sleep [] Unable to be with family [] Patient intubated [] Other: Summary Time spent with patient
--- NOTE | 2024-12-17 10:21 | PM.DCS ---
Discharge Providers Date of Admission: 12/15/24 01:22 Date of Discharge: December 17, 2024 Attending Provider at Admission: Darryl Shah MD Attending Provider at Discharge: Bryan Aguila MD Primary Care Provider: Adrian Mcguire MD Diagnoses at Discharge Discharge Diagnosis 1. Drug-induced acute pancreatitis: 2. Diabetes: 3. Dyslipidemia: 4. Alzheimer disease: 5. Benign essential hypertension with target blood pressure below 140/90: 6. Obesity (BMI 30-39.9): Reason for Visit Reason for Visit: CP Brief History: Per HPI Raven Rocha is a 79 year old female with history of dementia on multiple medications. She is a poor historian but family noted she was having abdominal and chest discomfort today while watching movies and began to collect her chest. Cardiac enzymes were normal or only barely at elevated at 11 despite having chest pain ongoing through the day. Her lipase is 10,000 alluding to pancreatitis diagnosis. Patient has had her gallbladder out and does not drink alcohol but she is on many medications that can cause pancreatitis these include atorvastatin, glimepiride, metformin, memantine, donepezil, Seroquel. It is hard to know which 1 alone or only in combination as cause of pancreatitis. Patient is a poor historian and reports that she is okay but then does admit she has abdominal pain. Patient lives with her daughter Hiral who is present at bedside. She is a after her in 2019. Patient had 1 episode of vomiting today Hospital Course Hospital Course Patient was admitted to the hospital further evaluation and management of abdominal pain, nausea and vomiting in setting of pancreatitis. She was started on conservative treatment. At first she was kept n.p.o. with pain management and IV hydration. Eventually she was started on clear liquid diet which she has been tolerating well. Her hospitalization was otherwise unremarkable. CT imaging did show concern for possible lesion in pancreatic tail with concerns for IPMN which was confirmed by MRCP. It is recommended as per the MRCP to have a repeat CT scan in 6 to 12 months. She has been discharged in hemodynamically stable condition on clear liquid diet. Her home dose of metformin for now has been withheld. Glimepiride has been changed to 1 mg daily. Patient family has been informed in detail regarding need for a repeat of CT with contrast in 6 months. Physical Exam Narrative: General Well-developed well-nourished obese female in no acute cardiopulmonary stress CV regular rate and rhythm Lungs clear to auscultation bilaterally Abdomen positive bowel tones soft, non tender to palpation Calves 1+ edema Skin warm and dry Mentation, AO to self, recognizes her daughter Discharge Data Studies Completed and Pending Completed Studies During Hospitalization Category Date Time Status CT abdomen pelvis w con* [id number] Urgent Cat Scan 12/14/24 23:07 Completed XR chest 1V portable [id number] Stat Exams 12/14/24 21:06 Completed MR MRCP 08113 Urgent MRI 12/16/24 11:28 Completed Pending at discharge Category Date Time Status MAG [Magnesium] AM LABS Lab 12/18/24 04:00 Ordered MAG [Magnesium] AM LABS Lab 12/19/24 04:00 Ordered MAG [Magnesium] AM LABS Lab 12/20/24 04:00 Ordered Urine Culture Stat Lab 12/14/24 22:50 Results Radiology Impressions Chest X-Ray 12/14/24 21:06 IMPRESSION: No acute cardiopulmonary process demonstrated. Abdomen/Pelvis CT 12/14/24 23:07 IMPRESSION: 1. Findings above related to acute interstitial pancreatitis. No focal fluid collections to suggest pancreatic pseudocyst at this time. 2. There is low-density lesions of the pancreatic tail. Concerning for side branch IPMNs. Follow up with MRCP can be performed. 3. Correlate with urinalysis to exclude cystitis. 4. Lingular nodular opacities reflecting atelectasis versus infiltrates. Correlate clinically. COMMENTS: Consistent with the [employer]'s Incidental Findings Committee white paper (J Am Salvador Radiol 2018): Any incidental renal lesion less than 1 cm or classified as too small to characterize, or any incidental cystic renal lesion characterized as simple-appearing, is likely benign. No follow-up imaging is recommended for these lesions per consensus recommendations based on imaging criteria. Cholangiopancreatography MRI 12/16/24 11:28 Impression: Very limited study due to motion and respiratory artifact. Some images are nondiagnostic. 1. Diffuse edema involving the pancreas compatible with known pancreatitis. 2. Cystic lobulated lesions involving the pancreatic tail most likely represent sidebranch IPMNs. This is difficult to further evaluate due to motion. Recommend 6 to 12-month follow-up with contrast-enhanced CT abdomen pelvis. 3. Prior cholecystectomy. 4. Fatty liver. Laboratory Results WBC 4.23 10^3/uL (3.29-11.43) 12/17/24 03:59 RBC 3.72 10^6/uL (3.85-5.65) L 12/17/24 03:59 Hgb 10.40 g/dL (11.27-16.99) L 12/17/24 03:59 Hct 32.5 % (36-47) L 12/17/24 03:59 MCV 87.4 fl (85-98) 12/17/24 03:59 MCH 28.0 pg (27-33) 12/17/24 03:59 MCHC 32.0 g/dL (30-55) 12/17/24 03:59 RDW 14.6 % (12.1-15.1) 12/17/24 03:59 Plt Count 135 10^3/cmm (157-399) L 12/17/24 03:59 MPV 9.9 fL (7.4-10.4) 12/17/24 03:59 Neut % (Auto) 59.2 % 12/17/24 03:59 Lymph % (Auto) 27.4 % 12/17/24 03:59 [place] % (Auto) 8.0 % 12/17/24 03:59 Eos % (Auto) 4.3 % 12/17/24 03:59 Baso % (Auto) 0.9 % 12/17/24 03:59 Neut # (Auto) 2.50 10^3/uL (1.8-7.7) 12/17/24 03:59 Lymph # (Auto) 1.2 10^3/uL (0.8-4.8) 12/17/24 03:59 [place] # (Auto) 0.3 10^3/uL (0.2-0.9) 12/17/24 03:59 Eos # (Auto) 0.2 10^3/uL (0.0-0.8) 12/17/24 03:59 Baso # (Auto) 0.0 10^3/uL (0.0-0.1) 12/17/24 03:59 Nucleated RBC % (auto) 0 % 12/17/24 03:59 Nucleated RBCs # 0.0 /100WBC 12/17/24 03:59 PT 13.30 SECONDS (12.1-14.9) 12/14/24 21:50 INR 0.94 (0.8-1.2) 12/14/24 21:50 Sodium 143 mmol/L (136-145) 12/17/24 03:59 Potassium 3.7 mmol/L (3.5-5.1) 12/17/24 03:59 Chloride 112 mmol/L (98-107) H 12/17/24 03:59 Carbon Dioxide 21 mmol/L (22-29) L 12/17/24 03:59 Anion Gap 13.7 (5-19) 12/17/24 03:59 BUN 7 mg/dL (8-23) L 12/17/24 03:59 Creatinine 0.6 mg/dL (0.5-0.9) 12/17/24 03:59 GFR Calculation Not Reportable 12/17/24 03:59 Glucose 127 mg/dL (65-115) H 12/17/24 03:59 Estimat Average Glucose 126 12/17/24 03:59 Hemoglobin A1c 6.0 % (4.0-6.0) 12/17/24 03:59 Calculated Osmolality 296 mOsm/kg (285-295) H 12/17/24 03:59 Calcium 8.5 mg/dL (8.5-10.5) 12/17/24 03:59 Phosphorus 2.7 mg/dL (2.5-4.5) 12/15/24 03:26 Magnesium 2.1 mg/dL (1.7-2.3) 12/17/24 03:59 Iron 36 ug/dL (37-145) L 12/17/24 03:59 TIBC 245 mcg/dl 12/17/24 03:59 % Saturation 14.6 % (20-50) L 12/17/24 03:59 Unsat Iron Binding 209 ug/dL (112-347) 12/17/24 03:59 Total Bilirubin 0.6 mg/dL (0.15-1.2) 12/17/24 03:59 AST 12 U/L (0-32) 12/17/24 03:59 ALT 10 U/L (0-33) 12/17/24 03:59 Alkaline Phosphatase 60 U/L (35-105) 12/17/24 03:59 Troponin T Baseline 11 ng/L (0-10) H 12/14/24 21:50 Troponin T 120 Minute 10.19 ng/L (0-10) H 12/14/24 00:18 Delta Troponin T 1.1 ABS# (0-10) 12/14/24 00:18 Troponin T Hi Sens 6Hr 9.95 ng/L (0-10) 12/15/24 03:26 Troponin T Hi Sens 6Hr Delta -1.05 ng/L (0-12) L 12/15/24 03:26 NT-Pro-B Natriuret Pep 159 pg/mL (0-450) 12/14/24 21:50 Total Protein 5.4 g/dL (6.6-8.7) L 12/17/24 03:59 Albumin 3.3 g/dL (3.5-5.2) L 12/17/24 03:59 Globulin 2.1 g/dL (1.3-4.6) 12/17/24 03:59 Lipase 2160 U/L (13-60) H 12/15/24 03:26 Vitamin B12 302 pg/mL (232-1245) 12/17/24 03:59 TSH 4.25 uIU/mL (0.27-4.20) H 12/17/24 03:59 Urine Color Yellow (Yellow) 12/14/24 22:50 Urine Appearance Clear (CLEAR) 12/14/24 22:50 Urine pH 5.5 (5-7) 12/14/24 22:50 Ur Specific [place] 1.027 (1.005-1.030) 12/14/24 22:50 Urine Protein 3+ (Negative) A 12/14/24 22:50 Urine Glucose (UA) 2+ (Normal) H 12/14/24 22:50 Urine Ketones Trace (Negative) 12/14/24 22:50 Urine Blood 2+ (Negative) A 12/14/24 22:50 Urine Nitrate Positive (Negative) A 12/14/24 22:50 Urine Bilirubin Negative (Negative) 12/14/24 22:50 Urine Urobilinogen 1.0 mg/dL (Negative) 12/14/24 22:50 Ur Leukocyte Esterase Negative (Negative) 12/14/24 22:50 Urine RBC 5-10 /hpf (0-2) H 12/14/24 22:50 Urine WBC 15-25 /hpf (0-5) H 12/14/24 22:50 Ur Squamous Epith Cells 3-5 /hpf (0-5) 12/14/24 22:50 Amorphous Sediment Not Reportable 12/14/24 22:50 Urine Bacteria 4+ /hpf (NONE) H 12/14/24 22:50 Urine Mucus 2+ /hpf 12/14/24 22:50 Vitals Last Vital Signs Temp 97.9 F 12/17/24 07:43 Pulse 61 12/17/24 07:43 Resp 20 H 12/17/24 07:43 BP 112/57 12/17/24 07:43 Pulse Ox 91 12/17/24 07:43 O2 Del Method Room Air 12/17/24 03:41 Discharge Plan Discharge Patient Disposition: Home Condition: Stable Prescriptions: New tramadol 50 mg tablet 25 mg PO Q6H PRN (Reason: pain) Qty: 14 0RF Continued isosorbide mononitrate 120 mg tablet extended release 24 hr 120 mg PO DAILY 90 Days Qty: 90 3RF memantine 10 mg tablet 10 mg PO BID Qty: 180 3RF Rx Instructions: Take one tablet by mouth twice daily. quetiapine [Seroquel] 25 mg tablet 25 mg PO BID Qty: 60 5RF Rx Instructions: At bedtime and every 6 hours as needed for agitation clopidogrel [Plavix] 75 mg tablet 75 mg PO DAILY Qty: 90 3RF pantoprazole 40 mg tablet,delayed release (DR/EC) 40 mg PO DAILY Qty: 30 8RF potassium chloride 10 mEq tablet extended release 10 meq PO DAILY acetaminophen [Tylenol Arthritis Pain] 650 mg Tablet Extended Release See Rx Instructions .ROUTE .COMPLEX PRN (Reason: Pain) Patient Comments: patient takes 2 tablets in the am and 1 tablet at night Rx Instructions: patient takes 2 tablets in the am and 1 tablet at night Women's 50 Plus Multivitamin 400 mcg-500 mg calcium-20 mcg Tablet 1 tab PO DAILY atorvastatin 40 mg tablet 20 mg PO DAILY donepezil 23 mg tablet 23 mg PO BEDTIME Rx Instructions: Take 1 tablet by mouth once daily Changed furosemide 40 mg tablet 40 mg PO DAILY PRN (Reason: swelling or weight gain of 5 lbs) Qty: 90 3RF glimepiride 2 mg tablet 1 mg PO DAILY Qty: 15 0RF Discontinued metformin 500 mg tablet extended release 24hr 500 mg PO BID metformin 500 mg tablet extended release 24 hr 1,000 mg PO QPM Discharge Order = DC NOW: Discharge Order (Routine); Ordered 12/17/24 Ordered By: Bryan Aguila Referrals: Adrian Mcguire MD [Primary Care Provider, Internal Medicine] - 12/24/24 9:30 am Discharge Diet: Advance as tolerated and Clear Liquid Discharge Activity: Resume usual activity and Increase activity as tolerated Patient Instructions: Pancreatitis (DC), Clear Liquid Diet (DC), GI (Gastrointestinal) Soft Diet (DC), Patient Portal & Luh Instructions, Fall Prevention Activity Restrictions/Additional Instructions: Continue with clear liquid diet for now and advance very gradually within next 1 to 2 weeks. Continue with clear liquid diet for 4 to 5 days and advance to a softer diet and then to regular diet in 2 weeks. Continue with your chronic home medications for now. You should have a repeat CT abdomen pelvis with contrast in 6 months as a follow-up for possible pancreatic mass. Do not take metformin for now. You can restart metformin once you are able to take regular diet. Discharge Attestations Time Spent in Discharge Care*: greater than 30 min Specific Discharge Activities: educating and/or supporting family/caregiver, discussing with pcp/other providers, discussing with oil field caser/social workers/dc planners, documenting/other paperwork and evaluating patient/reviewing data Status at Discharge: Cognitive status at discharge: moderately impaired cognition, Behavioral status at discharge: cooperative, Functional status at discharge: uses cane/walker, Overall status at discharge: patient is back to baseline Quality Metrics Clinical Quality Measures [ No reported AMI, CVA or VTE this stay] Coding Level of Care Code 46731 Total time (in minutes) for Discharge: 65 Diagnoses Drug-induced acute pancreatitis K85.30 Diabetes E11.9 Dyslipidemia E78.5 Alzheimer disease G30.9; F02.80 Benign essential hypertension with target blood pressure below 140/90 I10 Obesity (BMI 30-39.9) E66.9
[2024-12-17 10:52] VITALS: BP 112/57; PULSE 77; O2SAT 92
== END 2024-12-17 11:46 | disposition home or self-care (01) | DRG 440 ==
LOC: ER 12-15 03:12 → ER IP 12-15 04:43 → CSU 12-15 14:50
PROVIDERS: Internal Medicine; Admitting Provider Internal Medicine; Emergency Provider Emergency Medicine; PCP Internal Medicine; Visit Provider Student in an Organized Health Care Education/Training Program
DX: K85.30 Drug induced acute pancreatitis without necrosis or infection (principal); T50.915A Adverse effect of multiple unspecified drugs, medicaments and biological substances, initial encounter; Y92.9 Unspecified place or not applicable; E11.9 Type 2 diabetes mellitus without complications; E78.5 Hyperlipidemia, unspecified; I10 Essential (primary) hypertension; E66.9 Obesity, unspecified; Z68.38 Body mass index [BMI] 38.0-38.9, adult; G30.9 Alzheimer's disease, unspecified; F02.80 Dementia in other diseases classified elsewhere, unspecified severity, without behavioral disturbance, psychotic disturbance, mood disturbance, and anxiety; Z86.73 Personal history of transient ischemic attack (TIA), and cerebral infarction without residual deficits; Z79.02 Long term (current) use of antithrombotics/antiplatelets; Z79.84 Long term (current) use of oral hypoglycemic drugs; R93.5 Abnormal findings on diagnostic imaging of other abdominal regions, including retroperitoneum
CPT/HCPCS: 36415; 71045; 74177; 74181; 80048; 80053; 81001; 82607; 83036; 83540; 83550; 83690; 83735; 83880; 84100; 84443; 84484; 85025; 85610; 87077; 87086; 87186; 93005; 96365; 96372; 97161; 97165; 99285; J1650; J3480; J3490; J7030; J9999

== ENCOUNTER 2024-12-22 12:32 | Observation (INO) | payer MEDICARE, SELFPAY ==
--- OUTSIDE RECORDS SUMMARY | 2024-08-26 05:15 | XMS_ITS ---
Author Organization [facility] Address [address] [place] [address] [place] [id number] Care Team Providers Care Technical Service Engineer Name Role Phone CEASAR NGUYEN Primary Care Provider CARMEN FINCH [phone] Encounters Encounter Location Date Provider Diagnosis [facility] [address] [place] [address] [place] [id number] 08/26/2024 CARMEN FINCH Plan Of Treatment No Information Progress Notes * SACHA COBURN PDOB: [birth year] (79 yo F)Acc No.[id number]:08/26/2024 Patient: Jerome LEILANI SACHA Anderson Provider: Julieta FINCH :1945 A ge:79 Y S ex:Female Date:08/26/2024 Address:[address] [place] [address], [facility] Pcp:CEASAR Anderson SRA Subjective: * Chief Complaints: * * Medical History: Objective: * Vitals: Assessment: Plan: * Treatment: * Care Plan Details* * Electronic signature of TERRANCE RESTREPO APRN on 12/23/2024 at 08:37 PM CDT Sign off status: Pending * Provider: Julieta FINCH Date: 08/26/2024 Generated for Ana jhaveri/Shruthi/eTransmitting on: 0 12/23/2024 08:37 PM CDT
--- OUTSIDE RECORDS SUMMARY | 2024-08-26 05:15 | XMS_ITS ---
Author Organization [facility] Address [address] [place] [address] [place] [id number] Care Team Providers Care Cloth Folder Machine Name Role Phone CEASAR NGUYEN Primary Care Provider CARMEN FINCH [phone] Encounters Encounter Location Date Provider Diagnosis [facility] [address] [place] [address] [place] [id number] 08/26/2024 CARMEN FINCH Plan Of Treatment No Information Progress Notes * SACHA COBURN PDOB: 7 (79 yo F)Acc No.[id number]:08/26/2024 Patient: Jerome LEILANI SACHA Anderson Provider: Julieta FINCH :1945 A ge:79 Y S ex:Female Date:08/26/2024 Address:[address] [place] [address], [facility] Pcp:CEASAR Anderson SRA Subjective: * Chief Complaints: * * Medical History: Objective: * Vitals: Assessment: Plan: * Treatment: * Care Plan Details* * Electronic signature of TERRANCE RESTREPO APRN on 12/22/2024 at 12:37 PM CDT Sign off status: Pending * Provider: Julieta FINCH Date: 08/26/2024 Generated for Ana jhaveri/Shruthi/eTransmitting on: 0 12/22/2024 12:37 PM CDT
[2024-12-22] VITALS (8 sets, daily range): BP systolic 131–149; BP diastolic 69–93; PULSE 52–81; RESP 14–16; TEMP 36.7–36.8; O2SAT 90–95; BMI 36.6; BMI 37.0
--- OUTSIDE RECORDS SUMMARY | 2024-12-22 12:37 | XMS_ITS | Patient Health Record ---
Author Organization [facility] Address [address] [place] [address] Care Team Providers Care Automatic Bow Maker Machine Tender Name Role Phone Ramirez Santana Primary Care [...] 40 MG Oral Tablet 12/25/2017 Active Pyridostigmine [place] 60 MG Oral Tablet Pyridostigmine [place] 60 MG Oral Tablet 12/25/2017 Active 24 HR Metoprolol Tartrate 25 MG Extended Release Tablet 24 HR Metoprolol Tartrate 25 MG Extended Release Tablet 12/25/2017 Active Potassium Chloride 1.33 MEQ Oral Tablet Potassium Chloride 1.33 MEQ Oral Tablet 12/25/2017 Active Immunizations Vaccine Route Administration Date Status Comme nts Influenza (whole), CPT 38455 Inactive Unknown 02/22/2018 Administered Social History Social History Additional Details Category Social Info Options Details zzMigrated Social History Migrated Social History Smoking Status:Never smoked tobacco (finding) Plan Of Treatment No Information
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
--- OUTSIDE RECORDS SUMMARY | 2024-12-22 12:38 | XMS_ITS | Encounter Summary ---
Author Organization [facility] Address [address] [place] [address] Care Team Providers Care Cut In Station Operator Name Role Phone Unavailable Primary Care Provider Unavailabl e Encounter Details Date Type Department Care Team (Late st Contact Info) Description 12/02/2002 Outpatient Historical [facility] [place] [address] 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
--- OUTSIDE RECORDS SUMMARY | 2024-12-22 12:38 | XMS_ITS | Encounter Summary ---
Author Organization [facility] Address [address] [place] [address] Care Team Providers Care Quarry Supervisor Open Pit Name Role Phone Unavailable Primary Care Provider Unavailabl e Encounter Details Date Type Department Care Team (Latest Contact Info) Description 09/26/2001 Outpatient Historical [facility] [place] [address] [facility] [address] [place] [phone] Bienvenido Carbajal MD SCREENING MAL NEOP-COLON (Primary Dx) Social History Tobacco Use Types Packs/Day Years Used Date Smoking Tobacco: Never Assessed Comments Unknown Sex and Gender Information Value Date Recorded Sex Assigned at Not on file 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
--- OUTSIDE RECORDS SUMMARY | 2024-12-22 12:38 | XMS_ITS | Clinical Summary ---
Author Organization [facility] Address [address] 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
--- NOTE | 2024-12-22 13:20 | CTR_ITS ---
PROCEDURE INFORMATION: Exam: CT Abdomen And Pelvis With Contrast Exam date and time: 12/22/2024 3:05 PM Age: 79 years old Clinical indication: Abdominal pain; Epigastric; Prior surgery; Surgery date: 6+ months; Surgery type: Breast, gb, hysto; Additional info: Continued epigastric pain, recent dx of pancreatitis TECHNIQUE: Imaging protocol: Computed tomography of the abdomen and pelvis with contrast. Radiation optimization: All CT scans at this facility use at least one of these dose optimization techniques: automated exposure control; mA and/or kV adjustment per patient size (includes targeted exams where dose is matched to clinical indication); or iterative reconstruction. Contrast material: OMNI 350; Contrast volume: 100 ml; Contrast route: INTRAVENOUS (IV); COMPARISON: MR MRCP [id number] 12/16/2024 2:28 PM RADIATION DOSE METRICS: Total DLP (mGy-cm): 944.45 FINDINGS: Lower chest: Heart size normal. Mild dependent atelectasis lower. Areas ground-glass density medially in the right. This could represent a mild right lower lobe pneumonia. Liver: Fatty change. Elongated high 0.9 in length probable small cyst posterior right lobe liver. No follow-up imaging recommended.In a low-risk patient, this is most likely to be benign and no further follow-up is recommended. In a high-risk patient, follow-up MRI in 3-6 months is recommended (or earlier if warranted by the patient's specific clinical circumstances). (Reference: Marquis) References: Marquis ABBOTT, et al. Management of Incidental Liver Lesions on CT: A White Paper of the ACR Incidental Findings Committee. J Am Salvador Radiol. 2017;14(11):9372-1190. Gallbladder and biliary ducts: Status post cholecystectomy. Common bile duct measures a proximally 1 cm in diameter within normal limits for post cholecystectomy patient. Pancreas: Dilatation pancreatic duct in the head of the pancreas measuring 5.6 mm. Slight distension pancreatic duct in the body and tail measuring up to 3.4 mm. Proximally 5 small cysts in the tail of the pancreas the largest which measures 9.5 diameter. Again 6-12 month follow-up with IV contrast recommended. Remains [id number] peripancreatic edema/fluid/stranding around head of the and tail of the pancreas. Spleen: Normal. No splenomegaly. Adrenal glands: Normal. No mass. Kidneys and ureters: Normal. No hydronephrosis. Stomach and bowel: Mild wall thickening antrum stomach and jejunum probably secondary to pancreatitis. Colon unremarkable. Appendix: No evidence of appendicitis. Intraperitoneal space: Unremarkable. No free air. No significant fluid collection. Vasculature: Mild atherosclerosis. No abdominal aortic aneurysm. Lymph nodes: Unremarkable. No enlarged lymph nodes. Urinary bladder: Unremarkable as visualized. Reproductive: Hysterectomy. Phleboliths in gonadal veins. Bones/joints: [id number]-mw-[id number] changes lower thoracic. Changes DISH thoracic spine. Vacuum disc phenomenon several levels disc disease. Slight retrolisthesis of the L1 with respect to L2 on a basis Soft tissues: Unremarkable. CT/CT abdomen pelvis w con* [id number] IMPRESSION: 1. Again seen changes pancreatitis with peripancreatic fluid, edema, stranding. Mild dilatation of pancreatic duct. The several pancreatic cystic lesions tail of the pancreas. 6-12 follow-up CT with contrast recommended. Also maybe some mild secondary inflammatory change of the antrum stomach and a ileus of the jejunum. . 2. Status post cholecystectomy. Status post hysterectomy 3. Possible mild right lower lobe pneumonia. 4. Fatty change liver. Hepatic cyst. No follow-up imaging recommended. 5. 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
--- NOTE | 2024-12-22 13:21 | W.ED.ABDPA2 ---
Documented by User: [email or web address] Pisano 12/22/24 19:03 HPI - Abdominal Pain General: Chief Complaint: Abdominal Pain Stated Complaint: mid abd pain Time Seen by Provider: 12/22/24 13:00 Source: family (daughter) Mode of arrival: ambulatory Limitations: altered mental status (dementia) History of Present Illness: Patient is a 79-year-old female with history of dementia and recent hospitalization for acute drug-induced pancreatitis (discharged 5 days ago) who presents to the ED for persistent mid/upper abdominal pain. History is provided primarily by her daughter. The patient has continued to experience intermittent epigastric discomfort since discharge, which has not significantly worsened. Pain is located in the upper abdomen without clear radiation. Patient has been reporting associated nausea but has not had any vomiting. She has had mild loose stools, which family attributes to recent dietary changes of soft diet, cream of wheat introduced today. She denies fever, chills, chest pain, shortness of breath, jaundice, dysuria, or hematochezia. Of note during her prior admission she was diagnosed with drug-induced pancreatitis of unclear etiology; metformin was discontinued. MRCP at that time demonstrated acute pancreatitis with cystic lobulated lesions in the pancreatic tail, poorly characterized due to motion artifact, with recommendation for follow-up cross-sectional imaging in 6 to 12 months. She was also diagnosed with a urinary tract infection but reportedly did not get prescribed any medication. Currently she appears nontoxic and not acutely ill. No new symptoms since discharge. All other symptoms reviewed and negative. Family has reported that patient is at baseline mentation. MD elicited complaint: abdominal pain Pertinent past history: other (Pancreatitis) Onset (ago): day(s) Pain Consistency: constant Location: Epigastric Radiation: none Context: recent surgery/procedure and history of similar episodes Associated Symptoms: Reports change in stool character and nausea; Denies bloating, chills, constipation, dysuria, fever(s), hematochezia and vomiting Related Data Home Medications ?Medication ?Instructions ?Recorded ?Confirmed acetaminophen 650 mg See Rx Instructions .Route 12/15/24 12/22/24 tablet,extended release (Tylenol .COMPLEX PRN Pain Arthritis Pain) gszxenae-zlt-tajvi ac 400 1 tab PO DAILY 12/15/24 12/22/24 mcg-calcium carb 500 mg-vit K1 20 mcg tablet (Women's 50 Plus Multivitamin) potassium chloride 10 mEq 10 meq PO DAILY 12/15/24 12/22/24 tablet,extended release donepezil 23 mg tablet 23 mg PO BEDTIME 12/17/24 12/22/24 atorvastatin 20 mg tablet 20 mg PO QPM 12/22/24 12/22/24 glimepiride 2 mg tablet 1 mg PO QPM 12/22/24 12/22/24 metformin 500 mg tablet,extended 1,000 mg PO DAILY 12/22/24 12/22/24 release 24 hr Previous Rx's ?Medication ?Instructions ?Recorded pantoprazole 40 mg tablet,delayed 40 mg PO DAILY #30 tabs 09/09/19 release isosorbide mononitrate 120 mg 120 mg PO DAILY 90 days #90 tabs 01/16/20 tablet,extended release 24 hr clopidogrel 75 mg tablet (Plavix) 75 mg PO DAILY #90 tabs 08/10/20 memantine 10 mg tablet 10 mg PO BID #180 tabs 01/09/24 quetiapine 25 mg tablet (Seroquel) 25 mg PO BID #60 tabs 01/09/24 furosemide 40 mg tablet 40 mg PO DAILY PRN swelling or 12/17/24 weight gain of 5 lbs #90 tabs tramadol 50 mg tablet 25 mg (1/2 x 50 mg) PO Q6H PRN 12/17/24 pain #14 tabs Allergies Allergy/AdvReac Type Severity Reaction Status Date / Time amoxicillin Allergy ALGY-Hives Verified 01/09/24 10:40 aspirin (From Aggrenox) Allergy Unknown Verified 01/09/24 10:40 Cephalosporins Allergy Unknown Verified 01/09/24 10:40 dipyridamole (From Aggrenox) Allergy Unknown Verified 01/09/24 10:40 glimepiride (From Amaryl) Allergy Unknown Verified 01/09/24 10:40 levofloxacin (From Levaquin) Allergy Unknown Verified 01/09/24 10:40 pregabalin (From Lyrica) Allergy Unknown Verified 01/09/24 10:40 procaine (From Novocain) Allergy Unknown Verified 01/09/24 10:40 sumatriptan (From Imitrex) Allergy ALGY-Rash Verified 01/09/24 10:40 Review of Systems General: Reports: 10 or more systems reviewed and unremarkable except in HPI and below Narrative: Review of systems is provided by daughter Const: Denies: fever(s), chills, change in appetite, change in weight or diaphoresis ENMT: Denies: throat pain or hoarseness Card: Denies: chest pain, palpitations or lightheadedness Resp: Denies: dyspnea, productive cough or wheezing GI: Reports: abdominal pain, nausea and change in stool character; Denies: vomiting, constipation, bloating or hematochezia : Denies: flank pain, difficulty voiding, dysuria, urinary frequency or urinary urgency Musc: Denies: neck pain or back pain Skin/Breast: Denies: rash or new lesions Neuro: Denies: headache(s) or dizziness PFSH ED PFSH: Medical History Obesity (BMI 30-39.9) SOB (shortness of breath) Old cerebrovascular accident (CVA) without late effect Dyslipidemia Benign essential hypertension with target blood pressure below 140/90 Abdominal pain Rotator cuff arthropathy of right shoulder Tubal infertility in female Surgical History History of carpal tunnel surgery H/O thyroidectomy H/O: hysterectomy H/O knee surgery History of cholecystectomy H/O eye surgery H/O mastoidectomy History of appendectomy H/O mastectomy H/O colonoscopy Family History Sister Cancer Mother Cancer Daughter Cancer Denies family history of Diabetes CAD (coronary artery disease) Clotting disorder Dementia Chronic kidney disease (CKD) Suicide Anesthesia complication Bleeding disorder Lung disease Stroke Social History Smoking and tobacco/nicotine status: never used tobacco/nicotine Alcohol intake: former Substance/Drug Use: never Additional social history: Patient does not use any drugs alcohol, illicits or smoke. CODE STATUS is DNR as discussed with patient's daughter. This is on 12/15/2024 with Darryl Shah MD patient's past employment included working for [employer] in the [employer] Physical Exam Const: COMMON NORMALS: no acute distress, alert and well nourished EXAM LIMITATIONS: altered mental status (Dementia) GENERAL APPEARANCE: cooperative ORIENTATION/CONSCIOUSNESS: Yes awake OTHER: At baseline orientation of alert and oriented to self only. Patient is nontoxic-appearing Eye: COMMON NORMALS: Equal, round and reactive pupils present, EOMs intact bilaterally, conjunctivae normal and normal visual [place] by confrontation CONJUNCTIVA: Yes conjunctivae normal PUPIL: Yes Equal, round and reactive pupils present OTHER: No scleral icterus Neck/C-Spine: COMMON NORMALS: full ROM, supple, no meningeal signs and no JVD Chest: OTHER: Bilateral mastectomy Resp: COMMON NORMALS: normal respiratory effort, No retractions, No use of accessory muscles and clear to auscultation bilaterally AUSCULTATION: clear to auscultation bilaterally, no crackles, no rales, no rhonchi and no wheezes Cardio: COMMON NORMALS: no JVD, regular rate, regular rhythm, No gallops present (Cardio), No clicks present (Cardio), No murmurs present (Cardio) and No rub (Cardio) RATE: regular rate RHYTHM: regular rhythm GI: COMMON NORMALS: Normal to inspection, nondistended, normoactive bowel sounds present, Soft to palpation, No hepatosplenomegaly present and no masses AUSCULTATION: Yes normoactive bowel sounds PALPATION: Yes Soft to palpation, No Guarding due to palpation present (GI), No Rigid due to palpation and Yes No hepatosplenomegaly present RECTAL EXAM: deferred OTHER: Reproducible epigastric tenderness to palpation : COMMON NORMALS: Yes no CVA tenderness BLADDER/KIDNEY EXAM: Yes no CVA tenderness Back/Pelvis: COMMON NORMALS: no CVA tenderness Extremity: COMMON NORMALS: normal to inspection and full ROM NARRATIVE EXTREMITY EXAM: Bilateral 2+ pedal edema Neuro: COMMON NORMALS: moves all extremities, no focal motor deficits and no sensory deficits noted SENSORIUM/ORIENTATION: Yes alert MENINGEAL SIGNS: Yes no meningeal signs Psych: COMMON NORMALS: cooperative and speech normal SPEECH: Yes normal speech Skin: COMMON NORMALS: no rashes or lesions noted GENERAL SKIN EXAM: no rashes or lesions noted Course Vital Signs: Vital signs: Vital Signs Temperature 98.0 F 12/22/24 12:54 Pulse Rate 54 L 12/22/24 18:01 Respiratory Rate 16 12/22/24 12:54 Blood Pressure 146/93 12/22/24 18:01 Pulse Oximetry 93 12/22/24 18:01 Oxygen Delivery Me thod Room Air 12/22/24 12:54 MDM - Abdominal Pain Medical Decision Making 79-year-old female with recent admission for drug-induced pancreatitis presenting with ongoing mild abdominal pain, nausea, and mild diarrhea. Exam reassuring, patient nontoxic and hemodynamically stable. Workup notable for lipase greater than 7700, which is down from 11,000 on prior admission. She is also hypokalemic at 3.2, and hyperglycemic though has a history of diabetes. Elevated lactic 3.6, and mildly elevated troponin of 15. Reflex troponin downtrending to 11.77. EKG initially showed chronic right bundle branch block with LAD and prolonged QTc at 491, unchanged from prior, with idioventricular rhythm on subsequent EKG. CT abdomen and pelvis confirms pancreatitis with mild ductal dilatation, stable cystic pancreatic tail lesions, mild reactive gastric and jejunal changes, and possible right lower lobe pneumonia. Chest x-ray confirms pneumonia. Patient receiving cautious IV fluids, electrolyte repletion, and analgesia with IV hydromorphone 0.5 mg for pain. Given her elevated lactate, electrolyte derangements, pancreatitis with persistent lipase elevation and now onset of what is likely hospital-acquired pneumonia, patient is high risk and will be admitted to the hospital under medicine for continued monitoring, electrolyte correction, and supportive care. Dr. Avalos is excepting hospitalist, Dr. Stephens putting in admit orders at this time. Lab Data 12/22/24 13:33 12/22/24 13:33 Labs/Radiology: Radiology Impressions Abdomen/Pelvis CT 12/22/24 13:20 IMPRESSION: 1. Again seen changes pancreatitis with peripancreatic fluid, edema, stranding. Mild dilatation of pancreatic duct. The several pancreatic cystic lesions tail of the pancreas. 6-12 follow-up CT with contrast recommended. Also maybe some mild secondary inflammatory change of the antrum stomach and a ileus of the jejunum. . 2. Status post cholecystectomy. Status post hysterectomy 3. Possible mild right lower lobe pneumonia. 4. Fatty change liver. Hepatic cyst. No follow-up imaging recommended. 5. 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 Mild right lower lobe pneumonia. 2. Some atelectasis lingula. 3. Degenerative changes cervical spine, shoulders and postsurgical changes right humeral head. Laboratory Results WBC 8.77 10^3/uL (3.29-11.43) 12/22/24 13:33 RBC 4.72 10^6/uL (3.85-5.65) 12/22/24 13:33 Hgb 13.00 g/dL (11.27-16.99) 12/22/24 13:33 Hct 40.2 % (36-47) 12/22/24 13:33 MCV 85.2 fl (85-98) 12/22/24 13:33 MCH 27.5 pg (27-33) 12/22/24 13:33 MCHC 32.3 g/dL (30-55) 12/22/24 13:33 RDW 14.1 % (12.1-15.1) 12/22/24 13:33 Plt Count 210 10^3/cmm (157-399) 12/22/24 13:33 MPV 9.6 fL (7.4-10.4) 12/22/24 13:33 Neut % (Auto) 83.1 % 12/22/24 13:33 Lymph % (Auto) 11.2 % 12/22/24 13:33 Atkinson % (Auto) 4.3 % 12/22/24 13:33 Eos % (Auto) 0.9 % 12/22/24 13:33 Baso % (Auto) 0.3 % 12/22/24 13:33 Neut # (Auto) 7.28 10^3/uL (1.8-7.7) 12/22/24 13:33 Lymph # (Auto) 1.0 10^3/uL (0.8-4.8) 12/22/24 13:33 Atkinson # (Auto) 0.4 10^3/uL (0.2-0.9) 12/22/24 13:33 Eos # (Auto) 0.1 10^3/uL (0.0-0.8) 12/22/24 13:33 Baso # (Auto) 0.0 10^3/uL (0.0-0.1) 12/22/24 13:33 Nucleated RBC % (auto) 0 % 12/22/24 13:33 Nucleated RBCs # 0.0 /100WBC 12/22/24 13:33 Sodium 144 mmol/L (136-145) 12/22/24 13:33 Potassium 3.2 mmol/L (3.5-5.1) L 12/22/24 13:33 Chloride 101 mmol/L (98-107) 12/22/24 13:33 Carbon Dioxide 26 mmol/L (22-29) 12/22/24 13:33 Anion Gap 20.2 (5-19) H 12/22/24 13:33 BUN 5 mg/dL (8-23) L 12/22/24 13:33 Creatinine 0.8 mg/dL (0.5-0.9) 12/22/24 13:33 GFR Calculation Not Reportable 12/22/24 13:33 Glucose 232 mg/dL (65-115) H 12/22/24 13:33 Calculated Osmolality 303 mOsm/kg (285-295) H 12/22/24 13:33 Lactic Acid 3.6 mmol/L (0.5-2.2) H 12/22/24 13:33 Lactic Acid (Sepsis) 3.4 mmol/L (0.5-2.2) H 12/22/24 16:43 Calcium 8.8 mg/dL (8.5-10.5) 12/22/24 13:33 Magnesium 1.7 mg/dL (1.7-2.3) 12/22/24 13:33 Total Bilirubin 0.7 mg/dL (0.15-1.2) 12/22/24 13:33 AST 28 U/L (0-32) 12/22/24 13:33 ALT 34 U/L (0-33) H 12/22/24 13:33 Alkaline Phosphatase 93 U/L (35-105) 12/22/24 13:33 Troponin T Baseline 15 ng/L (0-10) H 12/22/24 13:33 Troponin T 120 Minute 11.77 ng/L (0-10) H 12/22/24 15:30 Delta Troponin T -3.23 ABS# (0-10) L 12/22/24 15:30 Total Protein 6.9 g/dL (6.6-8.7) 12/22/24 13:33 Albumin 4.5 g/dL (3.5-5.2) 12/22/24 13:33 Globulin 2.4 g/dL (1.3-4.6) 12/22/24 13:33 Lipase > 7772 U/L (13-60) H 12/22/24 13:33 Urine Color Yellow (Yellow) 12/22/24 14:07 Urine Appearance Clear (CLEAR) 12/22/24 14:07 Urine pH 5.5 (5-7) 12/22/24 14:07 Ur Specific [place] 1.012 (1.005-1.030) 12/22/24 14:07 Urine Protein 1+ (Negative) A 12/22/24 14:07 Urine Glucose (UA) Negative (Normal) 12/22/24 14:07 Urine Ketones Negative (Negative) 12/22/24 14:07 Urine Blood Trace (Negative) A 12/22/24 14:07 Urine Nitrate Negative (Negative) 12/22/24 14:07 Urine Bilirubin Negative (Negative) 12/22/24 14:07 Urine Urobilinogen 0.2 mg/dL (Negative) 12/22/24 14:07 Ur Leukocyte Esterase Negative (Negative) 12/22/24 14:07 Urine RBC 0-2 /hpf (0-2) 12/22/24 14:07 Urine WBC 0-5 /hpf (0-5) 12/22/24 14:07 Ur Squamous Epith Cells 0-5 /hpf (0-5) 12/22/24 14:07 Amorphous Sediment Not Reportable 12/22/24 14:07 Urine Bacteria None seen /hpf (NONE) 12/22/24 14:07 Hyaline Casts 11.97 /lpf 12/22/24 14:07 All radiology interpretation(s) finalized by discharge EKG Data EKG 1: I personally reviewed and interpreted this EKG as follows: EKG interpretation date: 12/22/24 EKG interpretation time: 13:43 Prior EKG tracings: available for review Interpretation: 1343: Normal sinus rhythm. Left axis deviation. Right bundle branch block. Compared to previous, no acute ST segment changes. Reviewed with physician. Discharge Plan Discharge Patient Disposition: Placed in Observation Clinical Impression: Drug-induced acute pancreatitis Qualifiers: Acute pancreatitis complication: unspecified Qualified Code(s): K85.30 - Drug induced acute pancreatitis without necrosis or infection Coding Level of Care Code ED Executive Director Sheltered [employer] for [employer] Documented by User: Segundo Stephens, DO 12/22/24 19:23 HPI - Abdominal Pain General: Chief Complaint: Abdominal Pain Stated Complaint: mid abd pain Time Seen by Provider: 12/22/24 13:00 Related Data Home Medications ?Medication ?Instructions ?Recorded ?Confirmed acetaminophen 650 mg See Rx Instructions .Route 12/15/24 12/22/24 tablet,extended release (Tylenol .COMPLEX PRN Pain Arthritis Pain) gmfezdgr-abo-karru ac 400 1 tab PO DAILY 12/15/24 12/22/24 mcg-calcium carb 500 mg-vit K1 20 mcg tablet (Women's 50 Plus Multivitamin) potassium chloride 10 mEq 10 meq PO DAILY 12/15/24 12/22/24 tablet,extended release donepezil 23 mg tablet 23 mg PO BEDTIME 12/17/24 12/22/24 atorvastatin 20 mg tablet 20 mg PO QPM 12/22/24 12/22/24 glimepiride 2 mg tablet 1 mg PO QPM 12/22/24 12/22/24 metformin 500 mg tablet,extended 1,000 mg PO DAILY 12/22/24 12/22/24 release 24 hr Previous Rx's ?Medication ?Instructions ?Recorded pantoprazole 40 mg tablet,delayed 40 mg PO DAILY #30 tabs 09/09/19 release isosorbide mononitrate 120 mg 120 mg PO DAILY 90 days #90 tabs 01/16/20 tablet,extended release 24 hr clopidogrel 75 mg tablet (Plavix) 75 mg PO DAILY #90 tabs 08/10/20 memantine 10 mg tablet 10 mg PO BID #180 tabs 01/09/24 quetiapine 25 mg tablet (Seroquel) 25 mg PO BID #60 tabs 01/09/24 furosemide 40 mg tablet 40 mg PO DAILY PRN swelling or 12/17/24 weight gain of 5 lbs #90 tabs tramadol 50 mg tablet 25 mg (1/2 x 50 mg) PO Q6H PRN 12/17/24 pain #14 tabs Allergies Allergy/AdvReac Type Severity Reaction Status Date / Time amoxicillin Allergy ALGY-Hives Verified 01/09/24 10:40 aspirin (From Aggrenox) Allergy Unknown Verified 01/09/24 10:40 Cephalosporins Allergy Unknown Verified 01/09/24 10:40 dipyridamole (From Aggrenox) Allergy Unknown Verified 01/09/24 10:40 glimepiride (From Amaryl) Allergy Unknown Verified 01/09/24 10:40 levofloxacin (From Levaquin) Allergy Unknown Verified 01/09/24 10:40 pregabalin (From Lyrica) Allergy Unknown Verified 01/09/24 10:40 procaine (From Novocain) Allergy Unknown Verified 01/09/24 10:40 sumatriptan (From Imitrex) Allergy ALGY-Rash Verified 01/09/24 10:40 PFSH ED PFSH: Medical History Obesity (BMI 30-39.9) SOB (shortness of breath) Old cerebrovascular accident (CVA) without late effect Dyslipidemia Benign essential hypertension with target blood pressure below 140/90 Abdominal pain Rotator cuff arthropathy of right shoulder Tubal infertility in female Surgical History History of carpal tunnel surgery H/O thyroidectomy H/O: hysterectomy H/O knee surgery History of cholecystectomy H/O eye surgery H/O mastoidectomy History of appendectomy H/O mastectomy H/O colonoscopy Family History Sister Cancer Mother Cancer Daughter Cancer Denies family history of Diabetes CAD (coronary artery disease) Clotting disorder Dementia Chronic kidney disease (CKD) Suicide Anesthesia complication Bleeding disorder Lung disease Stroke Social History Smoking and tobacco/nicotine status: never used tobacco/nicotine Alcohol intake: former Substance/Drug Use: never Additional social history: Patient does not use any drugs alcohol, illicits or smoke. CODE STATUS is DNR as discussed with patient's daughter. This is on 12/15/2024 with Darryl Shah MD patient's past employment included working for [employer] in the [employer] Vital Signs: Vital signs: Vital Signs Temperature 98.0 F 12/22/24 12:54 Pulse Rate 54 L 12/22/24 18:01 Respiratory Rate 16 12/22/24 12:54 Blood Pressure 146/93 12/22/24 18:01 Pulse Oximetry 93 12/22/24 18:01 Oxygen Delivery Me thod Room Air 12/22/24 12:54 MDM - Abdominal Pain Medical Decision Making 79-year-old female with recent admission for drug-induced pancreatitis presenting with ongoing mild abdominal pain, nausea, and mild diarrhea. Exam reassuring, patient nontoxic and hemodynamically stable. Workup notable for lipase greater than 7700, which is down from 11,000 on prior admission. She is also hypokalemic at 3.2, and hyperglycemic though has a history of diabetes. Elevated lactic 3.6, and mildly elevated troponin of 15. Reflex troponin downtrending to 11.77. EKG initially showed chronic right bundle branch block with LAD and prolonged QTc at 491, unchanged from prior, with idioventricular rhythm on subsequent EKG. CT abdomen and pelvis confirms pancreatitis with mild ductal dilatation, stable cystic pancreatic tail lesions, mild reactive gastric and jejunal changes, and possible right lower lobe pneumonia. Chest x-ray confirms pneumonia. Patient receiving cautious IV fluids, electrolyte repletion, and analgesia with IV hydromorphone 0.5 mg for pain. Given her elevated lactate, electrolyte derangements, pancreatitis with persistent lipase elevation and now onset of what is likely hospital-acquired pneumonia, patient is high risk and will be admitted to the hospital under medicine for continued monitoring, electrolyte correction, and supportive care. Dr. Avalos is excepting hospitalist, Dr. Stephens putting in admit orders at this time. This patient was originally seen by Mr. Eliu PA-C. I agree with his history, evaluation, and treatment. Orders been written for admission. Lab Data 12/22/24 13:33 12/22/24 13:33 Labs/Radiology: Radiology Impressions Abdomen/Pelvis CT 12/22/24 13:20 IMPRESSION: 1. Again seen changes pancreatitis with peripancreatic fluid, edema, stranding. Mild dilatation of pancreatic duct. The several pancreatic cystic lesions tail of the pancreas. 6-12 follow-up CT with contrast recommended. Also maybe some mild secondary inflammatory change of the antrum stomach and a ileus of the jejunum. . 2. Status post cholecystectomy. Status post hysterectomy 3. Possible mild right lower lobe pneumonia. 4. Fatty change liver. Hepatic cyst. No follow-up imaging recommended. 5. 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 Mild right lower lobe pneumonia. 2. Some atelectasis lingula. 3. Degenerative changes cervical spine, shoulders and postsurgical changes right humeral head. Laboratory Results WBC 8.77 10^3/uL (3.29-11.43) 12/22/24 13:33 RBC 4.72 10^6/uL (3.85-5.65) 12/22/24 13:33 Hgb 13.00 g/dL (11.27-16.99) 12/22/24 13:33 Hct 40.2 % (36-47) 12/22/24 13:33 MCV 85.2 fl (85-98) 12/22/24 13:33 MCH 27.5 pg (27-33) 12/22/24 13:33 MCHC 32.3 g/dL (30-55) 12/22/24 13:33 RDW 14.1 % (12.1-15.1) 12/22/24 13:33 Plt Count 210 10^3/cmm (157-399) 12/22/24 13:33 MPV 9.6 fL (7.4-10.4) 12/22/24 13:33 Neut % (Auto) 83.1 % 12/22/24 13:33 Lymph % (Auto) 11.2 % 12/22/24 13:33 Atkinson % (Auto) 4.3 % 12/22/24 13:33 Eos % (Auto) 0.9 % 12/22/24 13:33 Baso % (Auto) 0.3 % 12/22/24 13:33 Neut # (Auto) 7.28 10^3/uL (1.8-7.7) 12/22/24 13:33 Lymph # (Auto) 1.0 10^3/uL (0.8-4.8) 12/22/24 13:33 Atkinson # (Auto) 0.4 10^3/uL (0.2-0.9) 12/22/24 13:33 Eos # (Auto) 0.1 10^3/uL (0.0-0.8) 12/22/24 13:33 Baso # (Auto) 0.0 10^3/uL (0.0-0.1) 12/22/24 13:33 Nucleated RBC % (auto) 0 % 12/22/24 13:33 Nucleated RBCs # 0.0 /100WBC 12/22/24 13:33 Sodium 144 mmol/L (136-145) 12/22/24 13:33 Potassium 3.2 mmol/L (3.5-5.1) L 12/22/24 13:33 Chloride 101 mmol/L (98-107) 12/22/24 13:33 Carbon Dioxide 26 mmol/L (22-29) 12/22/24 13:33 Anion Gap 20.2 (5-19) H 12/22/24 13:33 BUN 5 mg/dL (8-23) L 12/22/24 13:33 Creatinine 0.8 mg/dL (0.5-0.9) 12/22/24 13:33 GFR Calculation Not Reportable 12/22/24 13:33 Glucose 232 mg/dL (65-115) H 12/22/24 13:33 Calculated Osmolality 303 mOsm/kg (285-295) H 12/22/24 13:33 Lactic Acid 3.6 mmol/L (0.5-2.2) H 12/22/24 13:33 Lactic Acid (Sepsis) 3.4 mmol/L (0.5-2.2) H 12/22/24 16:43 Calcium 8.8 mg/dL (8.5-10.5) 12/22/24 13:33 Magnesium 1.7 mg/dL (1.7-2.3) 12/22/24 13:33 Total Bilirubin 0.7 mg/dL (0.15-1.2) 12/22/24 13:33 AST 28 U/L (0-32) 12/22/24 13:33 ALT 34 U/L (0-33) H 12/22/24 13:33 Alkaline Phosphatase 93 U/L (35-105) 12/22/24 13:33 Troponin T Baseline 15 ng/L (0-10) H 12/22/24 13:33 Troponin T 120 Minute 11.77 ng/L (0-10) H 12/22/24 15:30 Delta Troponin T -3.23 ABS# (0-10) L 12/22/24 15:30 Total Protein 6.9 g/dL (6.6-8.7) 12/22/24 13:33 Albumin 4.5 g/dL (3.5-5.2) 12/22/24 13:33 Globulin 2.4 g/dL (1.3-4.6) 12/22/24 13:33 Lipase > 7772 U/L (13-60) H 12/22/24 13:33 Urine Color Yellow (Yellow) 12/22/24 14:07 Urine Appearance Clear (CLEAR) 12/22/24 14:07 Urine pH 5.5 (5-7) 12/22/24 14:07 Ur Specific [place] 1.012 (1.005-1.030) 12/22/24 14:07 Urine Protein 1+ (Negative) A 12/22/24 14:07 Urine Glucose (UA) Negative (Normal) 12/22/24 14:07 Urine Ketones Negative (Negative) 12/22/24 14:07 Urine Blood Trace (Negative) A 12/22/24 14:07 Urine Nitrate Negative (Negative) 12/22/24 14:07 Urine Bilirubin Negative (Negative) 12/22/24 14:07 Urine Urobilinogen 0.2 mg/dL (Negative) 12/22/24 14:07 Ur Leukocyte Esterase Negative (Negative) 12/22/24 14:07 Urine RBC 0-2 /hpf (0-2) 12/22/24 14:07 Urine WBC 0-5 /hpf (0-5) 12/22/24 14:07 Ur Squamous Epith Cells 0-5 /hpf (0-5) 12/22/24 14:07 Amorphous Sediment Not Reportable 12/22/24 14:07 Urine Bacteria None seen /hpf (NONE) 12/22/24 14:07 Hyaline Casts 11.97 /lpf 12/22/24 14:07 Discharge Plan Discharge Patient Disposition: Placed in Observation Clinical Impression: Drug-induced acute pancreatitis Qualifiers: Acute pancreatitis complication: unspecified Qualified Code(s): K85.30 - Drug induced acute pancreatitis without necrosis or infection Coding Level of Care Code ED Executive Director Sheltered Workshop for Sherie Arboleda
--- NOTE | 2024-12-22 13:42 | ECG_ITS ---
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 Measurements Intervals [place] Rate: 64 P: 60 NC: 203 QRS: -31 QRSD: 169 T: 23 QT: 482 QTc: 499 Interpretive Statements SINUS RHYTHM LEFT AXIS DEVIATION [QRS AXIS < -30] RIGHT BUNDLE BRANCH BLOCK [120+ ms QRS DURATION, UPRIGHT V1, 40+ ms S IN I/aVL/V4/V5/V6] Compared to ECG 12/15/2024 08:23:01 Right bundle-branch block now present Sinus bradycardia no longer present Intraventricular conduction delay no longer present Electronically Signed On 12-22-2024 18:45:18 CDT by Rose Mcdonald M.D. [email or web address]
[2024-12-22 13:45] LABS: Hematocrit 40.2 % (36-47); Hemoglobin 13.00 g/dL (11.27-16.99); Mean Corpuscular HGB Conc 32.3 g/dL (30-55); Mean Corpuscular Hemoglobin 27.5 pg (27-33); Mean Corpuscular Volume 85.2 fl (85-98); Nucleated Red Blood Cells % 0 %; Platelet Count 210 10^3/cmm (157-399); Red Blood Count 4.72 10^6/uL (3.85-5.65); White Blood Count 8.77 10^3/uL (3.29-11.43)
[2024-12-22 14:02] LABS: Troponin(5th) Baseline 15 ng/L (0-10)
[2024-12-22 14:03] LABS: Lactic Sepsis W/Reflex 3.6 mmol/L (0.5-2.2)
[2024-12-22 14:05] LABS: Alanine Aminotransferase 34 U/L (0-33); Albumin Level 4.5 g/dL (3.5-5.2); Alkaline Phosphatase 93 U/L (35-105); Anion Gap 20.2 (5-19); Aspartate Amino Transferase 28 U/L (0-32); Blood Urea Nitrogen 5 mg/dL (8-23); Calcium 8.8 mg/dL (8.5-10.5); Carbon Dioxide 26 mmol/L (22-29); Chloride 101 mmol/L (98-107); Creatinine Clr Calc Pharmacy 67.8110; Globulin 2.4 g/dL (1.3-4.6); Glucose 232 mg/dL (65-115); Magnesium 1.7 mg/dL (1.7-2.3); Osmolality Calculated 303 mOsm/kg (285-295); Potassium 3.2 mmol/L (3.5-5.1); Sodium 144 mmol/L (136-145); Total Protein 6.9 g/dL (6.6-8.7)
[2024-12-22 14:15] LABS: Glucose Urine UA Negative (Normal); Nitrate Urine Negative (Negative); Specific Gravity, Urine 1.012 (1.005-1.030)
[2024-12-22 14:20] LABS: Add Urine Microscopic? YES
[2024-12-22 14:29] LABS: Lipase > 7772 U/L (13-60)
[2024-12-22 14:34] LABS: UA Slide Review UA Slide Review Perf
[2024-12-22 14:41] LABS: Reflex Lactate Order REFLEX LACTIC ORDERD
[2024-12-22] MEDS: iohexol 350 mg/mL 500 mL Btl (per mL) IV (15:09)
--- NOTE | 2024-12-22 15:19 | ECG_ITS ---
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 Measurements Intervals [place] Rate: 55 P: 0 NV: 0 QRS: -20 QRSD: 119 T: 79 QT: 379 QTc: 363 Interpretive Statements Normal Sinus Rhythm CRITICAL TEST RESULT Compared to ECG 12/22/2024 13:42:40 Non diagnostic T wave changes Left-axis deviation no longer present Right bundle-branch block no longer present Electronically Signed On 12-22-2024 18:59:42 CDT by Rose Mcdonald M.D. [id number] [id number]
[2024-12-22 16:03] LABS: Troponin 5 2HR 11.77 ng/L (0-10)
[2024-12-22 16:04] LABS: Troponin 5 2HR Delta -3.23 ABS# (0-10)
--- NOTE | 2024-12-22 16:50 | XRR_ITS ---
PROCEDURE INFORMATION: Exam: XR Chest Exam date and time: 12/22/2024 4:54 PM Age: 79 years old Clinical indication: Abnormal findings; Other: Possible rll pna as seen on abd CT; Prior surgery; Surgery date: 6+ months; Surgery type: Mastectomy, thyroidectomy; Additional info: Poss rll pna TECHNIQUE: Imaging protocol: Radiologic exam of the chest. Views: 1 view. COMPARISON: CR (CHEST, ) 12/14/2024 9:20 PM FINDINGS: Lungs: Ill-defined increased parenchymal opacities in the right cardiophrenic angle corresponding to ground-glass opacities CT consistent with a mild right lower pneumonia. Overlying clips seen chest wall and lower neck as seen on CT. Some probable atelectasis left lingula Pleural spaces: Unremarkable. No pleural effusion. No pneumothorax. Heart/Mediastinum: Mild tortuosity thoracic aorta. No cardiomegaly. Bones/joints: Cewuttij-qc-bdhhfd degenerative changes cervical facet joints. Moderate degenerative changes midthoracic spine. Degenerative changes of the glenohumeral joints and AC joints. Surgical anchor head of the right humerus. Abdomen: XR/XR chest 1V portable [id number] IMPRESSION: 1. Mild right lower lobe pneumonia. 2. Some atelectasis lingula. 3. Degenerative changes cervical spine, shoulders and postsurgical changes right humeral head.
[2024-12-22 17:03] LABS: Lactic Acid level (Lactate) 3.4 mmol/L (0.5-2.2)
[2024-12-22] MEDS: HYDROmorphone 0.5 MG/0.5 ML INJ IVP (17:55)
[2024-12-22 20:15] LABS: Troponin 5 6HR 12.30 ng/L (0-10)
--- NOTE | 2024-12-22 20:25 | ECG_ITS ---
[facility] Test Date: 2024-12-22 Pat Name: Raven Rocha Department: Room: 260 Gender: Female Manager Balance: : 1945 Requested By: Nader Bradshaw Order Number: [id number] Hudson MD: Rose Mcdonald M.D. Measurements Intervals [place] Rate: 53 P: 61 [place]: 207 QRS: -33 QRSD: 108 T: 70 QT: 489 QTc: 463 Interpretive Statements SINUS BRADYCARDIA LEFT AXIS DEVIATION [QRS AXIS < -30] INCOMPLETE RIGHT BUNDLE BRANCH BLOCK [90+ ms QRS DURATION, TERMINAL R IN V1/V2, 40+ ms S IN I/aVL/V4/V5/V6] NONSPECIFIC T-WAVE ABNORMALITY PROLONGED QT INTERVAL Compared to ECG 12/22/2024 15:35:39 Left-axis deviation now present Incomplete right bundle-branch block now present T-wave abnormality now present Prolonged QT interval now present Sinus rhythm no longer present Electronically Signed On 12-24-2024 18:34:50 CDT by Rose Mcdonald M.D. [id number] [id number]
[2024-12-22 20:27] LABS: Troponin 5 6HR Delta -2.70 ng/L (0-12)
--- NOTE | 2024-12-22 20:36 | PM.HP ---
Providers/Chief Complaint Admitting Physician: Shey Avalos MD Chief Complaint: mid abd pain History of Present Illness Raven Rocha is a 79 year old female 79-year-old lady with a past medical history of dementia, recently admitted here for acute pancreatitis. Because of pancreatitis was thought to be drug related. CT of the abdomen and pelvis and MRCP wall did not reveal any obvious biliary obstruction. 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 Patient was treated. Bowel rest and IV fluids and discharged in an improved condition on 12/17/2024. She discharged home and mainly remained on a liquid diet until yesterday when she had some mashed potatoes last night and then cream of wheat this morning. Advancing the diet because patient to have abdominal discomfort again. She has been nauseous. She returned to the ER with the symptoms. CT of the abdomen and pelvis continues to show signs of pancreatitis without any signs of pancreatic necrosis or abscess. She does not drink any alcohol. No biliary obstruction is encountered. Patient points to her epigastric region and the flanks as the site of her pain. Review of Systems General: Reports: 10 or more systems reviewed and unremarkable except in HPI and below Const: Denies: fever(s), chills or body aches Eyes: Denies: change in vision, blurry vision or photophobia ENMT: Reports: hoarseness; Denies: throat pain, enlarged tonsils, odynophagia or nasal congestion Card: Denies: chest pain, palpitations, irregular heart rhythm, edema, swelling of feet/ankles, lightheadedness, pre-syncope, dyspnea on exertion or orthopnea Resp: Denies: dyspnea, productive cough, non-productive cough, wheezing, stridor, pain on inspiration, change in phlegm color, hemoptysis or chest congestion GI: Denies: abdominal pain, nausea, vomiting, hematemesis, coffee ground emesis, dysphagia, heartburn, diarrhea, constipation, GI cramping, change in stool character, hematochezia or melena : Denies: flank pain, difficulty voiding, dysuria, urinary frequency, urinary urgency, urinary hesitancy or hematuria Musc: Denies: neck pain, back pain, extremity pain, joint swelling, joint warmth or deformity Neuro: Denies: headache(s), numbness in extremities, weakness in extremities, sensory changes, difficulty walking, frequent falls, dizziness, vertigo, behavioral changes, Slurred speech present or seizure-like activity Psych: Denies: anxiety, depression, suicidal ideation or homicidal ideation Endo: Denies: polyuria, polydipsia, tired all the time, cold intolerance or hot flashes Baudilio/Lymph: Denies: easy bruising or easy bleeding Medications/Allergies Home Medications ?Medication ?Instructions ?Recorded ?Confirmed ?Last Taken ?Type pantoprazole 40 mg tablet,delayed 40 mg PO DAILY #30 tabs 09/09/19 12/22/24 12/22/24 Rx release isosorbide mononitrate 120 mg 120 mg PO DAILY 90 days #90 tabs 01/16/20 12/22/24 12/22/24 Rx tablet,extended release 24 hr clopidogrel 75 mg tablet (Plavix) 75 mg PO DAILY #90 tabs 08/10/20 12/22/24 12/22/24 Rx memantine 10 mg tablet 10 mg PO BID #180 tabs 01/09/24 12/22/24 12/22/24 Rx quetiapine 25 mg tablet (Seroquel) 25 mg PO BID #60 tabs 01/09/24 12/22/24 12/21/24 Rx acetaminophen 650 mg See Rx Instructions .Route 12/15/24 12/22/24 12/22/24 History tablet,extended release (Tylenol .COMPLEX PRN Pain Arthritis Pain) qnefiqwu-oqf-adivm ac 400 1 tab PO DAILY 12/15/24 12/22/24 12/15/24 History mcg-calcium carb 500 mg-vit K1 20 mcg tablet (Women's 50 Plus Multivitamin) potassium chloride 10 mEq 10 meq PO DAILY 12/15/24 12/22/24 12/22/24 History tablet,extended release donepezil 23 mg tablet 23 mg PO BEDTIME 12/17/24 12/22/24 12/21/24 History furosemide 40 mg tablet 40 mg PO DAILY PRN swelling or 12/17/24 12/22/24 12/22/24 Rx weight gain of 5 lbs #90 tabs tramadol 50 mg tablet 25 mg (1/2 x 50 mg) PO Q6H PRN 12/17/24 12/22/24 Unknown Rx pain #14 tabs atorvastatin 20 mg tablet 20 mg PO QPM 12/22/24 12/22/24 12/21/24 History glimepiride 2 mg tablet 1 mg PO QPM 12/22/24 12/22/24 12/21/24 History metformin 500 mg tablet,extended 1,000 mg PO DAILY 12/22/24 12/22/24 12/21/24 History release 24 hr Allergies Allergy/AdvReac Type Severity Reaction Status Date / Time amoxicillin Allergy ALGY-Hives Verified 01/09/24 10:40 aspirin (From Aggrenox) Allergy Unknown Verified 01/09/24 10:40 Cephalosporins Allergy Unknown Verified 01/09/24 10:40 dipyridamole (From Aggrenox) Allergy Unknown Verified 01/09/24 10:40 glimepiride (From Amaryl) Allergy Unknown Verified 01/09/24 10:40 levofloxacin (From Levaquin) Allergy Unknown Verified 01/09/24 10:40 pregabalin (From Lyrica) Allergy Unknown Verified 01/09/24 10:40 procaine (From Novocain) Allergy Unknown Verified 01/09/24 10:40 sumatriptan (From Imitrex) Allergy ALGY-Rash Verified 01/09/24 10:40 PFSH Acute PFSH: Medical History Obesity (BMI 30-39.9) SOB (shortness of breath) Old cerebrovascular accident (CVA) without late effect Dyslipidemia Benign essential hypertension with target blood pressure below 140/90 Abdominal pain Rotator cuff arthropathy of right shoulder Tubal infertility in female Surgical History History of carpal tunnel surgery H/O thyroidectomy H/O: hysterectomy H/O knee surgery History of cholecystectomy H/O eye surgery H/O mastoidectomy History of appendectomy H/O mastectomy H/O colonoscopy Family History Sister Cancer Mother Cancer Daughter Cancer Denies family history of Diabetes CAD (coronary artery disease) Clotting disorder Dementia Chronic kidney disease (CKD) Suicide Anesthesia complication Bleeding disorder Lung disease Stroke Social History Smoking and tobacco/nicotine status: never used tobacco/nicotine Alcohol intake: former Substance/Drug Use: never Additional social history: Patient does not use any drugs alcohol, illicits or smoke. CODE STATUS is DNR as discussed with patient's daughter. This is on 12/15/2024 with Darryl Shah MD patient's past employment included working for [employer] in the [employer] Vitals/I&O/Wt Last Vital Signs Temp 98.3 F 12/22/24 20:30 Pulse 52 L 12/22/24 20:30 Resp 16 12/22/24 20:30 BP 149/78 12/22/24 20:30 Pulse Ox 90 12/22/24 20:30 O2 Del Method Room Air 12/22/24 20:30 12/22/24 12/22/24 12/22/24 06:59 14:59 22:59 Intake Total 500 / 500 Balance 500 / 500 Weight last 48 hrs Weight 99.79 kg Physical Exam Narrative: General: No acute distress, AO x2,baseline HEENT: PERRLA, pupils bilaterally equal and reactive, pallors not present Chest: Normal vesicular breath sounds, no added sounds, equal good air entry bilaterally CVS: S1-S2 regular, no murmurs, no tachycardia, no gallops, no rubs Abdomen: Soft, nontender, no organomegaly, bowel sounds present Neuro: No focal deficits, no facial deformity, AO x3, power 5/5 in all limbs Data 12/22/24 13:33 12/22/24 13:33 Other data: Radiology Impressions Abdomen/Pelvis CT 12/22/24 13:20 IMPRESSION: 1. Again seen changes pancreatitis with peripancreatic fluid, edema, stranding. Mild dilatation of pancreatic duct. The several pancreatic cystic lesions tail of the pancreas. 6-12 follow-up CT with contrast recommended. Also maybe some mild secondary inflammatory change of the antrum stomach and a ileus of the jejunum. . 2. Status post cholecystectomy. Status post hysterectomy 3. Possible mild right lower lobe pneumonia. 4. Fatty change liver. Hepatic cyst. No follow-up imaging recommended. 5. 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 Mild right lower lobe pneumonia. 2. Some atelectasis lingula. 3. Degenerative changes cervical spine, shoulders and postsurgical changes right humeral head. Laboratory Results WBC 8.77 10^3/uL (3.29-11.43) 12/22/24 13:33 RBC 4.72 10^6/uL (3.85-5.65) 12/22/24 13:33 Hgb 13.00 g/dL (11.27-16.99) 12/22/24 13:33 Hct 40.2 % (36-47) 12/22/24 13:33 MCV 85.2 fl (85-98) 12/22/24 13:33 MCH 27.5 pg (27-33) 12/22/24 13:33 MCHC 32.3 g/dL (30-55) 12/22/24 13:33 RDW 14.1 % (12.1-15.1) 12/22/24 13:33 Plt Count 210 10^3/cmm (157-399) 12/22/24 13:33 MPV 9.6 fL (7.4-10.4) 12/22/24 13:33 Neut % (Auto) 83.1 % 12/22/24 13:33 Lymph % (Auto) 11.2 % 12/22/24 13:33 Gaines % (Auto) 4.3 % 12/22/24 13:33 Eos % (Auto) 0.9 % 12/22/24 13:33 Baso % (Auto) 0.3 % 12/22/24 13:33 Neut # (Auto) 7.28 10^3/uL (1.8-7.7) 12/22/24 13:33 Lymph # (Auto) 1.0 10^3/uL (0.8-4.8) 12/22/24 13:33 Gaines # (Auto) 0.4 10^3/uL (0.2-0.9) 12/22/24 13:33 Eos # (Auto) 0.1 10^3/uL (0.0-0.8) 12/22/24 13:33 Baso # (Auto) 0.0 10^3/uL (0.0-0.1) 12/22/24 13:33 Nucleated RBC % (auto) 0 % 12/22/24 13:33 Nucleated RBCs # 0.0 /100WBC 12/22/24 13:33 Sodium 144 mmol/L (136-145) 12/22/24 13:33 Potassium 3.2 mmol/L (3.5-5.1) L 12/22/24 13:33 Chloride 101 mmol/L (98-107) 12/22/24 13:33 Carbon Dioxide 26 mmol/L (22-29) 12/22/24 13:33 Anion Gap 20.2 (5-19) H 12/22/24 13:33 BUN 5 mg/dL (8-23) L 12/22/24 13:33 Creatinine 0.8 mg/dL (0.5-0.9) 12/22/24 13:33 GFR Calculation Not Reportable 12/22/24 13:33 Glucose 232 mg/dL (65-115) H 12/22/24 13:33 Calculated Osmolality 303 mOsm/kg (285-295) H 12/22/24 13:33 Lactic Acid 3.6 mmol/L (0.5-2.2) H 12/22/24 13:33 Lactic Acid (Sepsis) 3.4 mmol/L (0.5-2.2) H 12/22/24 16:43 Calcium 8.8 mg/dL (8.5-10.5) 12/22/24 13:33 Magnesium 1.7 mg/dL (1.7-2.3) 12/22/24 13:33 Total Bilirubin 0.7 mg/dL (0.15-1.2) 12/22/24 13:33 AST 28 U/L (0-32) 12/22/24 13:33 ALT 34 U/L (0-33) H 12/22/24 13:33 Alkaline Phosphatase 93 U/L (35-105) 12/22/24 13:33 Troponin T Baseline 15 ng/L (0-10) H 12/22/24 13:33 Troponin T 120 Minute 11.77 ng/L (0-10) H 12/22/24 15:30 Delta Troponin T -3.23 ABS# (0-10) L 12/22/24 15:30 Troponin T Hi Sens 6Hr 12.30 ng/L (0-10) H 12/22/24 19:40 Troponin T Hi Sens 6Hr Delta -2.70 ng/L (0-12) L 12/22/24 19:40 Total Protein 6.9 g/dL (6.6-8.7) 12/22/24 13:33 Albumin 4.5 g/dL (3.5-5.2) 12/22/24 13:33 Globulin 2.4 g/dL (1.3-4.6) 12/22/24 13:33 Lipase > 7772 U/L (13-60) H 12/22/24 13:33 Urine Color Yellow (Yellow) 12/22/24 14:07 Urine Appearance Clear (CLEAR) 12/22/24 14:07 Urine pH 5.5 (5-7) 12/22/24 14:07 Ur Specific [place] 1.012 (1.005-1.030) 12/22/24 14:07 Urine Protein 1+ (Negative) A 12/22/24 14:07 Urine Glucose (UA) Negative (Normal) 12/22/24 14:07 Urine Ketones Negative (Negative) 12/22/24 14:07 Urine Blood Trace (Negative) A 12/22/24 14:07 Urine Nitrate Negative (Negative) 12/22/24 14:07 Urine Bilirubin Negative (Negative) 12/22/24 14:07 Urine Urobilinogen 0.2 mg/dL (Negative) 12/22/24 14:07 Ur Leukocyte Esterase Negative (Negative) 12/22/24 14:07 Urine RBC 0-2 /hpf (0-2) 12/22/24 14:07 Urine WBC 0-5 /hpf (0-5) 12/22/24 14:07 Ur Squamous Epith Cells 0-5 /hpf (0-5) 12/22/24 14:07 Amorphous Sediment Not Reportable 12/22/24 14:07 Urine Bacteria None seen /hpf (NONE) 12/22/24 14:07 Hyaline Casts 11.97 /lpf 12/22/24 14:07 A&P Assessment and plan 1. Acute pancreatitis: Admit to [facility] Persistent changes of pancreatitis noted, likely pain today is advancing diet. IV fluid with normal saline at 50 cc an hour, gentle IV hydration in view of lower extremity swelling and h/o chf clear liquid diet Pain control with as needed morphine alternating with IV Toradol. As needed Tylenol for pain and fever. As needed Zofran for nausea management. CT of the abdomen and pelvis shows signs of acute pancreatitis with reactive changes around stomach and duodenum No necrosis or abscess cystic changes in pancreas noted to be IPMns on recent MRCP. Plan: DVT ppx : lovenox 30 full code PDMP PDMP Reviewed: Not Reviewed Attestations Medical Necessity Statement*: Less than 2 midnight stay is currently anticipated Coding Level of Care Code Acute Code for Chg Fwd Diagnoses Acute pancreatitis K85.90
[2024-12-22] MEDS: pantoprazole 40 mg SDV IVP (20:59)
[2024-12-22] MEDS: oxyCODONE-APAP 5-325 mg Tablet 1 TAB PO (20:59)
[2024-12-22] MEDS: sodium chlor 0.9% + KCl 20 mEq 20 MEQ/1,000 ML BAG 50 MEQ IV (21:00)
[2024-12-22 21:58] LABS: Triglycerides 196 mg/dL (0-150)
[2024-12-23] VITALS (12 sets, daily range): BP systolic 126–162; BP diastolic 67–81; PULSE 60–95; RESP 16–17; TEMP 36.4–37; O2SAT 90–94
[2024-12-23] MEDS: morphine 4 mg/mL SDV 1 mL 2 MG IVP (00:30)
[2024-12-23 06:27] LABS: Hematocrit 37.7 % (36-47); Hemoglobin 12.10 g/dL (11.27-16.99); Mean Corpuscular HGB Conc 32.1 g/dL (30-55); Mean Corpuscular Hemoglobin 27.4 pg (27-33); Mean Corpuscular Volume 85.3 fl (85-98); Nucleated Red Blood Cells % 0 %; Platelet Count 190 10^3/cmm (157-399); Red Blood Count 4.42 10^6/uL (3.85-5.65); White Blood Count 7.76 10^3/uL (3.29-11.43)
[2024-12-23 06:43] LABS: Alanine Aminotransferase 25 U/L (0-33); Albumin Level 3.9 g/dL (3.5-5.2); Alkaline Phosphatase 83 U/L (35-105); Anion Gap 16.2 (5-19); Aspartate Amino Transferase 19 U/L (0-32); Blood Urea Nitrogen 6 mg/dL (8-23); Calcium 8.6 mg/dL (8.5-10.5); Carbon Dioxide 26 mmol/L (22-29); Chloride 104 mmol/L (98-107); Creatinine Clr Calc Pharmacy 67.8216; Globulin 2.4 g/dL (1.3-4.6); Glucose 157 mg/dL (65-115); Osmolality Calculated 297 mOsm/kg (285-295); Potassium 3.2 mmol/L (3.5-5.1); Sodium 143 mmol/L (136-145); Total Protein 6.3 g/dL (6.6-8.7)
[2024-12-23] MEDS: oxyCODONE-APAP 5-325 mg Tablet 1 TAB PO ×2 (09:47→18:01)
--- NOTE | 2024-12-23 09:50 | PC.CHAP ---
Pastoral Care Encounter/Spiritual Assessment Type of Contact [] Declined career technical education teacher visit [] Patient/Family/Request visit [] Outpatient visit [] Follow-up visit [] Physician referral [] Code/Alert [x] Routine visit [] Staff referral [] Actively dying [x] Patient sleeping [] Family support [] [] Out of room [] Palliative care [] [] Receiving care in room [] Pre-surgical visit [] Trauma [] Long length of stay [] ICU visit [] Other: Relational/Emotional Strength [] Patient feels connected with others/family/visitors/staff [] Distress [] Loneliness/isolation [] Abandonment Spirituality of Patient [] Person of Marisela [] Attends Sikhism of their Marisela [] Believes in Prayer [] Reads Bible or Alevism materials [] There are Spiritual issues to be addressed Cardiology Nurse Interventions [x] Prayer [] Active listening [] Non-anxious presence [] Spiritual/emotional support [] Crisis/trauma care [] Spiritual counseling [] Bereavement support [] Provided bereavement packet [] Provided Bible/devotional materials [] Provided toy/stuffed animal, coloring book to patient or family member [] Provided Communion [] Anointing/[place] [] Salvation [] Completed spiritual assessment [] Other: Impact on Illness or Injury [] Angry [] Fearful [] Anxious [] Often cries [] Exhaustion [] Unable to work [] Unable to attend judaism [] Unable to walk/stand [] Unable to read [] Unable to drive [] Unable to eat/drink [] Unable to sleep [] Unable to be with family [] Patient intubated [] Other: Summary Time spent with patient
--- NOTE | 2024-12-23 13:06 | P.PN_ITS ---
Subjective 2 Subjective: Seen with family at bedside afebrile pain cotrolled with medication Vitals/I&O/Wt Last Vital Signs Temp 98.2 F 12/23/24 11:28 Pulse 73 12/23/24 11:28 Resp 16 12/23/24 11:28 BP 126/81 12/23/24 11:28 Pulse Ox 92 12/23/24 11:28 O2 Del Method Room Air 12/23/24 11:28 12/22/24 12/23/24 12/23/24 22:59 06:59 14:59 Intake Total 500 / 500 600 / 600 Balance 500 / 500 600 / 600 Weight last 48 hrs Weight 220 lb 1 oz Weight 222 lb 5 oz Weight 220 lb 1 oz Weight 220 lb Physical Exam 2 Narrative: General: No acute distress, AO x2,baseline HEENT: PERRLA, pupils bilaterally equal and reactive, pallors not present Chest: Normal vesicular breath sounds, no added sounds, equal good air entry bilaterally CVS: S1-S2 regular, no murmurs, no tachycardia, no gallops, no rubs Abdomen: Soft, nontender, no organomegaly, bowel sounds present Neuro: No focal deficits, no facial deformity, AO x3, power 5/5 in all limbs Data 12/23/24 05:20 12/23/24 05:20 A&P Assessment and plan 1. Acute pancreatitis: 2. Benign essential hypertension with target blood pressure below 140/90: 3. Dyslipidemia: Plan: #acute pancreatitis --etiology unclear --ddx medication --ivf, prn analgesics --repeat lipase level --advance diet --check FLP if not done --abx not indicated --GI referal #hypokalemia --replace and recheck chronic conditions htn dementia hld dm PDMP PDMP Reviewed: Not Reviewed Attestations 2 Medical Necessity Statement*: pain and nausea control , and monitoring labs Coding Level of Care Code 50969 Diagnoses Acute pancreatitis K85.90 Benign essential hypertension with target blood pressure below 140/90 I10 Dyslipidemia E78.5
[2024-12-23 13:41] LABS: Lipase 1865 U/L (13-60)
[2024-12-23] MEDS: sodium chlor 0.9% + KCl 20 mEq 20 MEQ/1,000 ML BAG 50 MEQ IV (16:10)
[2024-12-23] MEDS: ATORVASTATIN 10 MG TABLET 20 MG PO (17:15)
[2024-12-23] MEDS: pantoprazole 40 mg SDV IVP (20:10)
--- OUTSIDE RECORDS SUMMARY | 2024-12-23 20:37 | XMS_ITS | Clinical Summary ---
Author Organization [facility] Address [address] 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
--- OUTSIDE RECORDS SUMMARY | 2024-12-23 20:37 | XMS_ITS | Patient Health Record ---
Author Organization [facility] Address [address] [place] [address] Care Team Providers Care Highway Patrol Commander Name Role Phone Ramirez Santana Primary Care [...] 40 MG Oral Tablet 12/25/2017 Active Pyridostigmine Bagley 60 MG Oral Tablet Pyridostigmine [place]ley 60 MG Oral Tablet 12/25/2017 Active 24 HR Metoprolol Tartrate 25 MG Extended Release Tablet 24 HR Metoprolol Tartrate 25 MG Extended Release Tablet 12/25/2017 Active Potassium Chloride 1.33 MEQ Oral Tablet Potassium Chloride 1.33 MEQ Oral Tablet 12/25/2017 Active Immunizations Vaccine Route Administration Date Status Comme nts Influenza (whole), CPT 15595 Inactive Unknown 02/22/2018 Administered Social History Social History Additional Details Category Social Info Options Details zzMigrated Social History Migrated Social History Smoking Status:Never smoked tobacco (finding) Plan Of Treatment No Information
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
--- OUTSIDE RECORDS SUMMARY | 2024-12-23 20:38 | XMS_ITS | Encounter Summary ---
Author Organization [facility] Address [address] [place] [address] Care Team Providers Care Real Estate Financial Analyst Name Role Phone Unavailable Primary Care Provider Unavailabl e Encounter Details Date Type Department Care Team (Late st Contact Info) Description 12/02/2002 Outpatient Historical [facility] [place] [address] [place] [address] Michael dEwards MD [address] [place] [phone] Social History Tobacco Use Types Packs/Day Years Used Date Smoking Tobacco: Never Assessed Comments Unknown Sex and Gender Information Value Date Recorded Sex Assigned at Not on file Legal Sex Female 5:26 AM STAND IN Gender Identity Not on file Sexual Orientation Not on file documented as of this encounter Plan of Treatment Not on file documented as of this encounter Visit Diagnoses Not on filedocumented in this encounter
--- OUTSIDE RECORDS SUMMARY | 2024-12-23 20:38 | XMS_ITS | Encounter Summary ---
Author Organization [facility] Address [address] [place] [address] Care Team Providers Care Hospital Mortician Name Role Phone Unavailable Primary Care Provider Unavailabl e Encounter Details Date Type Department Care Team (Latest Contact Info) Description 09/26/2001 Outpatient Historical [facility] [place] [address] 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
[2024-12-24] VITALS (7 sets, daily range): BP systolic 138–146; BP diastolic 72–97; PULSE 62–68; RESP 16–17; TEMP 36.7–36.8; O2SAT 93–94
[2024-12-24] MEDS: oxyCODONE-APAP 5-325 mg Tablet 1 TAB PO (07:01)
--- NOTE | 2024-12-24 09:39 | PC.CHAP ---
Pastoral Care Encounter/Spiritual Assessment Type of Contact [] Declined supervisor porcelain department visit [] Patient/Family/Request visit [] Outpatient visit [] Follow-up visit [] Physician referral [] Code/Alert [] Routine visit [] Staff referral [] Actively dying [x] Patient sleeping [] Family support [] [] Out of room [] Palliative care [] [] Receiving care in room [] Pre-surgical visit [] Trauma [] Long length of stay [] ICU visit [] Other: Relational/Emotional Strength [] Patient feels connected with others/family/visitors/staff [] Distress [] Loneliness/isolation [] Abandonment Spirituality of Patient [] Person of Marisela [] Attends Scientology of their Marisela [] Believes in Prayer [] Reads Bible or Confucianist materials [] There are Spiritual issues to be addressed Care Process Manager Interventions [] Prayer [] Active listening [] Non-anxious presence [] Spiritual/emotional support [] Crisis/trauma care [] Spiritual counseling [] Bereavement support [] Provided bereavement packet [] Provided Bible/devotional materials [] Provided toy/stuffed animal, coloring book to patient or family member [] Provided Communion [] Anointing/[place] [] Salvation [] Completed spiritual assessment [] Other: Impact on Illness or Injury [] Angry [] Fearful [] Anxious [] Often cries [] Exhaustion [] Unable to work [] Unable to attend adventist [] Unable to walk/stand [] Unable to read [] Unable to drive [] Unable to eat/drink [] Unable to sleep [] Unable to be with family [] Patient intubated [] Other: Summary Time spent with patient
[2024-12-24 09:49] LABS: Hematocrit 34.6 % (36-47); Hemoglobin 10.70 g/dL (11.27-16.99); Mean Corpuscular HGB Conc 30.9 g/dL (30-55); Mean Corpuscular Hemoglobin 27.4 pg (27-33); Mean Corpuscular Volume 88.7 fl (85-98); Nucleated Red Blood Cells % 0 %; Platelet Count 157 10^3/cmm (157-399); Red Blood Count 3.90 10^6/uL (3.85-5.65); White Blood Count 5.36 10^3/uL (3.29-11.43)
[2024-12-24 10:03] LABS: Alanine Aminotransferase 16 U/L (0-33); Albumin Level 3.3 g/dL (3.5-5.2); Alkaline Phosphatase 68 U/L (35-105); Anion Gap 12.2 (5-19); Aspartate Amino Transferase 9 U/L (0-32); Blood Urea Nitrogen 6 mg/dL (8-23); Calcium 8.4 mg/dL (8.5-10.5); Carbon Dioxide 26 mmol/L (22-29); Chloride 103 mmol/L (98-107); Creatinine Clr Calc Pharmacy 69.1600; Globulin 2.4 g/dL (1.3-4.6); Glucose 161 mg/dL (65-115); Lipase 82 U/L (13-60); Osmolality Calculated 287 mOsm/kg (285-295); Potassium 3.2 mmol/L (3.5-5.1); Sodium 138 mmol/L (136-145); Total Protein 5.7 g/dL (6.6-8.7)
--- NOTE | 2024-12-24 13:24 | PM.DCS ---
Discharge Providers Date of Admission: 12/22/24 19:34 Date of Discharge: December 24, 2024 Attending Provider at Admission: Shey Avalos MD Attending Provider at Discharge: Donna Hughes MD Diagnoses at Discharge Discharge Diagnosis 1. Acute pancreatitis: 2. Benign essential hypertension with target blood pressure below 140/90: 3. Dyslipidemia: Reason for Visit Reason for Visit: mid abd pain Hospital Course Hospital Course Raven Rocha is a 79 year old female with history of dementia on multiple medications. She is a poor historian but family noted she was having abdominal and chest discomfort today while watching movies and began to collect her chest. Cardiac enzymes were normal or only barely at elevated at 11 despite having chest pain ongoing through the day. Her lipase is 10,000 alluding to pancreatitis diagnosis. Patient has had her gallbladder out and does not drink alcohol but she is on many medications that can cause pancreatitis these include atorvastatin, glimepiride, metformin, memantine, donepezil, Seroquel. It is hard to know which 1 alone or only in combination as cause of pancreatitis. Patient is a poor historian and reports that she is okay but then does admit she has abdominal pain. Patient lives with her daughter Hiral who is present at bedside. She is a after her in 2019. Patient had 1 episode of vomiting today Plan: made NPO. Serial labs are monitored. Lipid panel was checked. Antibodies were not indicated. Her electrolytes were also monitored. Chronic condition was treated. At time of discharge her diet was advanced. Her labs are improved. She did not pain. She was discharged in stable condition Physical Exam Narrative: General: No acute distress, AO x2,baseline HEENT: PERRLA, pupils bilaterally equal and reactive, pallors not present Chest: Normal vesicular breath sounds, no added sounds, equal good air entry bilaterally CVS: S1-S2 regular, no murmurs, no tachycardia, no gallops, no rubs Abdomen: Soft, nontender, no organomegaly, bowel sounds present Neuro: No focal deficits, no facial deformity, AO x3, power 5/5 in all limbs Discharge Data Studies Completed and Pending Completed Studies During Hospitalization Category Date Time Status CT abdomen pelvis w con* [id number] Urgent Cat Scan 12/22/24 13:20 Completed XR chest 1V portable [id number] Stat Exams 12/22/24 16:50 Completed Radiology Impressions Abdomen/Pelvis CT 12/22/24 13:20 IMPRESSION: 1. Again seen changes pancreatitis with peripancreatic fluid, edema, stranding. Mild dilatation of pancreatic duct. The several pancreatic cystic lesions tail of the pancreas. 6-12 follow-up CT with contrast recommended. Also maybe some mild secondary inflammatory change of the antrum stomach and a ileus of the jejunum. . 2. Status post cholecystectomy. Status post hysterectomy 3. Possible mild right lower lobe pneumonia. 4. Fatty change liver. Hepatic cyst. No follow-up imaging recommended. 5. 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 Mild right lower lobe pneumonia. 2. Some atelectasis lingula. 3. Degenerative changes cervical spine, shoulders and postsurgical changes right humeral head. Laboratory Results WBC 5.36 10^3/uL (3.29-11.43) 12/24/24 09: RBC 3.90 10^6/uL (3.85-5.65) 12/24/24 09: Hgb 10.70 g/dL (11.27-16.99) L 12/24/24 09: Hct 34.6 % (36-47) L 12/24/24 09: MCV 88.7 fl (85-98) 12/24/24 09: MCH 27.4 pg (27-33) 12/24/24 09: MCHC 30.9 g/dL (30-55) 12/24/24 09: RDW 14.4 % (12.1-15.1) 12/24/24 09: Plt Count 157 10^3/cmm (157-399) 12/24/24 09: MPV 9.5 fL (7.4-10.4) 12/24/24 09: Neut % (Auto) 59.9 % 12/24/24 09: Lymph % (Auto) 26.3 % 12/24/24 09: [place] % (Auto) 8.0 % 12/24/24 09: Eos % (Auto) 4.9 % 12/24/24 09: Baso % (Auto) 0.7 % 12/24/24 09: Neut # (Auto) 3.21 10^3/uL (1.8-7.7) 12/24/24 09:26 Lymph # (Auto) 1.4 10^3/uL (0.8-4.8) 12/24/24 09:26 [place] # (Auto) 0.4 10^3/uL (0.2-0.9) 12/24/24 09:26 Eos # (Auto) 0.3 10^3/uL (0.0-0.8) 12/24/24 09: Baso # (Auto) 0.0 10^3/uL (0.0-0.1) 12/24/24 09:26 Nucleated RBC % (auto) 0 % 12/24/24 09: Nucleated RBCs # 0.0 /100WBC 12/24/24 09:26 Sodium 138 mmol/L (136-145) 12/24/24 09:26 Potassium 3.2 mmol/L (3.5-5.1) L 12/24/24 09:26 Chloride 103 mmol/L (98-107) 12/24/24 09:26 Carbon Dioxide 26 mmol/L (22-29) 12/24/24 09:26 Anion Gap 12.2 (5-19) 12/24/24 09:26 BUN 6 mg/dL (8-23) L 12/24/24 09:26 Creatinine 0.7 mg/dL (0.5-0.9) 12/24/24 09:26 GFR Calculation Not Reportable 12/24/24 09: Glucose 161 mg/dL (65-115) H 12/24/24 09:26 Calculated Osmolality 287 mOsm/kg (285-295) 12/24/24 09:26 Lactic Acid 3.6 mmol/L (0.5-2.2) H 12/22/24 13:33 Lactic Acid (Sepsis) 3.4 mmol/L (0.5-2.2) H 12/22/24 16:43 Calcium 8.4 mg/dL (8.5-10.5) L 12/24/24 09:26 Magnesium 1.7 mg/dL (1.7-2.3) 12/22/24 13:33 Total Bilirubin 0.7 mg/dL (0.15-1.2) 12/24/24 09: AST 9 U/L (0-32) 12/24/24 09:26 ALT 16 U/L (0-33) 12/24/24 09:26 Alkaline Phosphatase 68 U/L (35-105) 12/24/24 09:26 Troponin T Baseline 15 ng/L (0-10) H 12/22/24 13:33 Troponin T 120 Minute 11.77 ng/L (0-10) H 12/22/24 15:30 Delta Troponin T -3.23 ABS# (0-10) L 12/22/24 15:30 Troponin T Hi Sens 6Hr 12.30 ng/L (0-10) H 12/22/24 19:40 Troponin T Hi Sens 6Hr Delta -2.70 ng/L (0-12) L 12/22/24 19:40 Total Protein 5.7 g/dL (6.6-8.7) L 12/24/24 09: Albumin 3.3 g/dL (3.5-5.2) L 12/24/24 09: Globulin 2.4 g/dL (1.3-4.6) 12/24/24 09:26 Triglycerides 196 mg/dL (0-150) H 12/22/24 13:33 Lipase 82 U/L (13-60) H 12/24/24 09:26 Urine Color Yellow (Yellow) 12/22/24 14:07 Urine Appearance Clear (CLEAR) 12/22/24 14:07 Urine pH 5.5 (5-7) 12/22/24 14:07 Ur Specific [place] 1.012 (1.005-1.030) 12/22/24 14:07 Urine Protein 1+ (Negative) A 12/22/24 14:07 Urine Glucose (UA) Negative (Normal) 12/22/24 14:07 Urine Ketones Negative (Negative) 12/22/24 14:07 Urine Blood Trace (Negative) A 12/22/24 14:07 Urine Nitrate Negative (Negative) 12/22/24 14:07 Urine Bilirubin Negative (Negative) 12/22/24 14:07 Urine Urobilinogen 0.2 mg/dL (Negative) 12/22/24 14:07 Ur Leukocyte Esterase Negative (Negative) 12/22/24 14:07 Urine RBC 0-2 /hpf (0-2) 12/22/24 14:07 Urine WBC 0-5 /hpf (0-5) 12/22/24 14:07 Ur Squamous Epith Cells 0-5 /hpf (0-5) 12/22/24 14:07 Amorphous Sediment Not Reportable 12/22/24 14:07 Urine Bacteria None seen /hpf (NONE) 12/22/24 14:07 Hyaline Casts 11.97 /lpf 12/22/24 14:07 Vitals Last Vital Signs Temp 98.2 F 12/24/24 11:52 Pulse 65 12/24/24 11:52 Resp 17 12/24/24 11:52 BP 138/72 12/24/24 11:52 Pulse Ox 93 12/24/24 11:52 O2 Del Method Room Air 12/24/24 11:52 Discharge Plan Discharge Patient Disposition: Home Condition: Stable Prescriptions: New isosorbide mononitrate 60 mg Tablet Extended Release 24 Hr 60 mg PO DAILY Qty: 30 0RF Continued memantine 10 mg tablet 10 mg PO BID Qty: 180 3RF quetiapine [Seroquel] 25 mg tablet 25 mg PO BID Qty: 60 5RF Rx Instructions: At bedtime and every 6 hours as needed for agitation clopidogrel [Plavix] 75 mg tablet 75 mg PO DAILY Qty: 90 3RF pantoprazole 40 mg tablet,delayed release (DR/EC) 40 mg PO DAILY Qty: 30 8RF potassium chloride 10 mEq tablet extended release 10 meq PO DAILY acetaminophen [Tylenol Arthritis Pain] 650 mg Tablet Extended Release See Rx Instructions .ROUTE .COMPLEX PRN (Reason: Pain) Patient Comments: patient takes 2 tablets in the am and 1 tablet at night Rx Instructions: Take 2 tablets in the am and 1 tablet at night. Women's 50 Plus Multivitamin 400 mcg-500 mg calcium-20 mcg Tablet 1 tab PO DAILY donepezil 23 mg tablet 23 mg PO BEDTIME furosemide 40 mg tablet 40 mg PO DAILY PRN (Reason: swelling or weight gain of 5 lbs) Qty: 90 3RF tramadol 50 mg tablet 25 mg PO Q6H PRN (Reason: pain) Qty: 14 0RF atorvastatin 20 mg tablet 20 mg PO QPM metformin 500 mg tablet extended release 24 hr 1,000 mg PO DAILY glimepiride 2 mg tablet 1 mg PO QPM Discontinued isosorbide mononitrate 120 mg tablet extended release 24 hr 120 mg PO DAILY 90 Days Qty: 90 3RF Discharge Order = DC NOW: Discharge Order (Routine); Ordered 12/24/24 Ordered By: Donna Hughes Referrals: nate [Other] nate [Other] [facility] [Outside] Referral Note: recurrent pancreatitis We have notified your physician's clinic of the need for a follow-up appointment to be scheduled. If you have not heard from them within the next 2 business days, please call them directly. Discharge Diet: Regular Discharge Activity: Resume usual activity Patient Instructions: Isosorbide Mononitrate (By mouth), Pancreatitis (GEN), Opioid Safety, Patient Portal & [facility]uh Instructions Activity Restrictions/Additional Instructions: APPOINTMENT WITH [facility] [phone] ON Monday AT 1:00 PM Discharge Attestations Time Spent in Discharge Care*: greater than 30 min Status at Discharge: Cognitive status at discharge: moderately impaired cognition, Behavioral status at discharge: cooperative, Quality Metrics Clinical Quality Measures [ No reported AMI, CVA or VTE this stay] Coding Level of Care Code Acute Code for Chg Fwd Diagnoses Acute pancreatitis K85.90 Benign essential hypertension with target blood pressure below 140/90 I10 Dyslipidemia E78.5
--- NOTE | 2024-12-24 15:41 | PC.NURSE ---
Discussed discharge with patient and both daughters. Discussed medications and follow up appointments. All questions answered for patient and family. Verbalized understanding.
== END 2024-12-24 14:20 | disposition home or self-care (01) ==
LOC: ER 18:52 → MEDSURG 12-23 08:38
PROVIDERS: Admitting Provider Student in an Organized Health Care Education/Training Program; Emergency Provider Physician Assistant; Visit Provider Internal Medicine
DX: K85.90 Acute pancreatitis without necrosis or infection, unspecified (principal); I10 Essential (primary) hypertension; E78.5 Hyperlipidemia, unspecified; K21.9 Gastro-esophageal reflux disease without esophagitis; Z79.84 Long term (current) use of oral hypoglycemic drugs; F03.90 Unspecified dementia, unspecified severity, without behavioral disturbance, psychotic disturbance, mood disturbance, and anxiety; E66.9 Obesity, unspecified; Z68.38 Body mass index [BMI] 38.0-38.9, adult; Z86.73 Personal history of transient ischemic attack (TIA), and cerebral infarction without residual deficits
CPT/HCPCS: 36415; 71045; 74177; 80053; 81001; 83605; 83690; 83735; 84478; 84484; 85025; 93005; 96361; 96372; 96374; 96375; 99285; G0378; J1171; J1650; J2270; J2470; J3480; J7040; J9999

== ENCOUNTER → 2025-01-03 11:37 | Outpatient (BNVA) | payer MEDICARE, SELFPAY | PROVIDERS: Visit Provider Nurse Practitioner | DX: G30.9 Alzheimer's disease, unspecified (principal); F02.80 Dementia in other diseases classified elsewhere, unspecified severity, without behavioral disturbance, psychotic disturbance, mood disturbance, and anxiety | CPT/HCPCS: 99212 ==

== ENCOUNTER 2025-02-11 13:13 | Emergency (ER) | payer MEDICARE, SELFPAY ==
--- OUTSIDE RECORDS SUMMARY | 2024-08-26 05:15 | XMS_ITS ---
Author Organization [facility] Address [address] [place] [address] [place] [id number] Care Team Providers Care Hooker Operator Name Role Phone CEASAR NGUYEN Primary Care Provider [phone] CARMEN FINCH [phone] Encounters Encounter Location Date Provider Diagnosis [facility] [address] [place] [address] SERJIO [place] [id number] 08/26/2024 CARMEN FINCH Plan Of Treatment No Information Progress Notes * SACHA COBURN PDOB: [birth year] (79 yo F)Acc No.[id number]:08/26/2024 Patient: Jerome DUKE SACHA Anderson Provider: Julieta FINCH :1945 A ge:79 Y S ex:Female Date:08/26/2024 Address:[address] [place] [address], [facility] Pcp:CEASAR Anderson SRA Subjective: * Chief Complaints: * * Medical History: Objective: * Vitals: Assessment: Plan: * Treatment: * Care Plan Details* * Electronic signature of TERRANCE RESTREPO APRN on 02/11/2025 at 02:01 PM CDT Sign off status: Pending * Provider: Julieta FINCH Date: 0 08/26/2024 Generated for Ana jhaveri/Shruthi/eTherveitting on: 1 02:01 PM CDT
[2025-02-11 13:16] VITALS: BP 146/70; PULSE 66; TEMP 36.8; O2SAT 94
--- NOTE | 2025-02-11 13:17 | XR_ITS ---
WS: [id number] XR chest 1V portable [id number] REASON FOR EXAM: Weakness FINDINGS: Chest is unchanged compared to 12/22/2024. Significant tortuosity and ectasia of the aortic arch and thoracic aorta. The heart size is at the upper limits of normal. Calcified granulomatous disease bilaterally. No acute pulmonary parenchymal or pleural abnormality is identified. Moderate degenerative spondylosis in the mid and lower thoracic spine. XR/XR chest 1V portable [id number] IMPRESSION: Stable chest without acute abnormality.
--- NOTE | 2025-02-11 13:18 | W.ED.AMS ---
HPI - Altered Mental Status General: Chief Complaint: Urogenital-Female Stated Complaint: AMS Time Seen by Provider: 02/11/25 13:14 History of Present Illness: This is a 79-year-old female with a history of dementia, recurrent urinary tract infections, obesity, previous stroke, hyperlipidemia, hypertension who presents to the emergency room with altered mental status. Family says over the last 3 days she has just become progressively more confused. Apparently she had gone outside and gone down the stairs and when she started to go back up she sat back down because she became tired. Here she is pleasant but confused. She is alert and oriented to herself and family. She has no pain complaints at this time. No focal motor deficits. No facial droop. No slurred speech. Related Data Home Medications ?Medication ?Instructions ?Recorded ?Confirmed acetaminophen 650 mg See Rx Instructions .Route 12/15/24 02/11/25 tablet,extended release (Tylenol .COMPLEX PRN Pain Arthritis Pain) [id number]-gqk-wazap ac 400 1 tab PO DAILY 12/15/24 02/11/25 mcg-calcium carb 500 mg-vit K1 20 mcg tablet (Women's 50 Plus Multivitamin) potassium chloride 10 mEq 10 meq PO QAM 12/15/24 02/11/25 tablet,extended release donepezil 23 mg tablet 23 mg PO BEDTIME 12/17/24 02/11/25 atorvastatin 20 mg tablet 20 mg PO QPM 12/22/24 02/11/25 glimepiride 2 mg tablet 2 mg PO QAM 12/22/24 02/11/25 metformin 500 mg tablet,extended 1,000 mg PO DAILY 12/22/24 02/11/25 release 24 hr clopidogrel 75 mg tablet (Plavix) 75 mg PO QAM 02/11/25 02/11/25 furosemide 40 mg tablet 40 mg PO QAM PRN swelling or 02/11/25 02/11/25 weight gain of 5 lbs pantoprazole 40 mg tablet,delayed 40 mg PO QAM 02/11/25 02/11/25 release quetiapine 25 mg tablet (Seroquel) See Rx Instructions .Route .COMPLEX 02/11/25 02/11/25 Previous Rx's ?Medication ?Instructions ?Recorded memantine 10 mg tablet 10 mg PO BID #180 tabs 01/09/24 tramadol 50 mg tablet 25 mg (1/2 x 50 mg) PO Q6H PRN 12/17/24 pain #14 tabs isosorbide mononitrate 60 mg 60 mg PO DAILY #30 tabs 12/24/24 tablet,extended release 24 hr cefdinir 300 mg capsule 300 mg PO BID 10 days #20 caps 02/11/25 Allergies Allergy/AdvReac Type Severity Reaction Status Date / Time amoxicillin Allergy ALGY-Hives Verified 01/03/25 11:41 aspirin (From Aggrenox) Allergy Unknown Verified 01/03/25 11:41 Cephalosporins Allergy Unknown Verified 01/03/25 11:41 dipyridamole (From Aggrenox) Allergy Unknown Verified 01/03/25 11:41 glimepiride (From Amaryl) Allergy Unknown Verified 01/03/25 11:41 levofloxacin (From Levaquin) Allergy Unknown Verified 01/03/25 11:41 pregabalin (From Lyrica) Allergy Unknown Verified 01/03/25 11:41 procaine (From Novocain) Allergy Unknown Verified 01/03/25 11:41 sumatriptan (From Imitrex) Allergy ALGY-Rash Verified 01/03/25 11:41 Review of Systems Narrative: Constitutional symptoms: Negative except as documented in HPI. Skin symptoms: Negative except as documented in HPI. Eye symptoms: Negative except as documented in HPI. ENMT symptoms: Negative except as documented in HPI. Respiratory symptoms: Negative except as documented in HPI. Cardiovascular symptoms: Negative except as documented in HPI. Gastrointestinal symptoms: Negative except as documented in HPI. Genitourinary symptoms: Negative except as documented in HPI. Musculoskeletal symptoms: Negative except as documented in HPI. Neurologic symptoms: Negative except as documented in HPI. Psychiatric symptoms: Negative except as documented in HPI. Endocrine symptoms: Negative except as documented in HPI. PFSH ED PFSH: Medical History (Updated 02/11/25 @ 15:42 by Bere Boateng MD) Obesity (BMI 30-39.9) SOB (shortness of breath) Old cerebrovascular accident (CVA) without late effect Dyslipidemia Benign essential hypertension with target blood pressure below 140/90 Abdominal pain Rotator cuff arthropathy of right shoulder Tubal infertility in female Surgical History History of carpal tunnel surgery H/O thyroidectomy H/O: hysterectomy H/O knee surgery History of cholecystectomy H/O eye surgery H/O mastoidectomy History of appendectomy H/O mastectomy H/O colonoscopy Family History Sister Cancer Mother Cancer Daughter Cancer Denies family history of Diabetes CAD (coronary artery disease) Clotting disorder Dementia Chronic kidney disease (CKD) Suicide Anesthesia complication Bleeding disorder Lung disease Stroke Social History Smoking and tobacco/nicotine status: never used tobacco/nicotine Alcohol intake: former Substance/Drug Use: never Additional social history: Patient does not use any drugs alcohol, illicits or smoke. CODE STATUS is DNR as discussed with patient's daughter. This is on 12/15/2024 with Darryl Shah MD patient's past employment included working for [employer] in the [employer] Physical Exam Narrative: General: Alert, no acute distress. Skin: Warm, dry. Head: Normocephalic, atraumatic. Neck: Supple, trachea midline. Eye: Extraocular movements are intact. Ears, nose, mouth and throat: mucosa moist. Cardiovascular: Regular, Normal peripheral perfusion. Respiratory: Lungs are clear to auscultation, respirations are non-labored, breath sounds are equal, Symmetrical chest wall expansion. Gastrointestinal: Soft, Nontender, Non distended Musculoskeletal: Normal ROM, no deformity. Neurological: Patient is alert and oriented to herself and family, pleasantly confused, No focal neurological deficit observed. Psychiatric: Cooperative, appropriate mood & affect. Course Vital Signs: Vital signs: Vital Signs Temperature 98.2 F 02/11/25 13:16 Pulse Rate 66 02/11/25 15:27 Respiratory Rate 16 02/11/25 15:27 Blood Pressure 114/88 02/11/25 15:27 Pulse Oximetry 95 02/11/25 15:27 Oxygen Delivery Me thod Room Air 02/11/25 15:27 MDM - Altered Mental Status Medical Decision Making Medical decision making: Differential diagnosis including but not limited to and based on the above HPI, review of systems and physical exam: In this patient with altered mental status: Stroke. Hypoglycemia. Metabolic encephalopathy. Infections such as pneumonia, urinary tract infection, Covid-19, Influenza. Electrolyte abnormalities such as hypernatremia. Renal failure / uremia. Hepatic encephalopathy. Hypoxemia. Hypercapnic respiratory failure. Psychosis. Drug or alcohol intoxication. Medication overdose. Orders placed to evaluate differential diagnosis based on the above differential, HPI and physical exam EKG: Time 1326. Rate 64. Normal sinus rhythm, nonspecific T wave changes, no ectopy, incomplete right bundle branch block., This was reviewed and interpreted by myself the ER physician at 1330 Chest x-ray: No acute process. No infiltrate. No pneumothorax. This was reviewed and interpreted by myself the emergency room physician. I also reviewed the radiology report. CT head: Senescent changes but no acute intracranial process. No intracranial hemorrhage, no evidence of infarct. No evidence of acute fracture. This was reviewed and interpreted by myself the emergency room physician. I also reviewed the radiology report. Lab Review: Laboratory results were reviewed and interpreted by myself the emergency room physician. No leukocytosis. No left shift. Lactate is elevated at over 4 but she does not show any signs of sepsis. Historically she has had elevated lactate in the past. Unclear what the etiology is but I do not believe she is septic. I spoke with family and given her dementia she sundown's and gets much more agitated when she is away from home and they like to try her at home on oral antibiotics and if she gets sicker they will bring her back. She is receiving IV antibiotics and fluids here. Her vitals have remained normal. Her lipase is negative. No renal failure. No anemia. Urinalysis does show signs of infection with 4+ bacteria, 21-50 whites, leukocyte esterase and nitrate positive I reviewed the patient's medical record. 79-year-old female with a history of dementia, recurrent urinary tract infections, obesity, previous stroke, hyperlipidemia, hypertension Reexamination: Patient remained stable. No increased work of breathing. No altered mental status. No focal motor deficits. Although family does state that she started become a little bit agitated by not being at home. She does have fairly advanced dementia. As above we discussed the risks of going home if she were to be septic but I do not believe that she is at this time. Assessment and plan: Urinary tract infection Dementia Encephalopathy ? IV fluids and IV Rocephin. ?Patient had listed an unknown allergy to several antibiotics including cephalosporins. She has tolerated Rocephin here with no reaction. We will attempt Omnicef at home. This is the safest and most effective antibiotic - Discharged home - Discussed plan with patient. Answered any questions. - Evaluation and treatment of this problem were appropriate in the emergency setting. Lab Data 02/11/25 14:15 02/11/25 14:15 Radiology Impressions Chest X-Ray 02/11/25 13:17 IMPRESSION: Stable chest without acute abnormality. Head CT 02/11/25 13:32 IMPRESSION: 1. No acute intracranial hemorrhage or edema. 2. Moderate cerebral and cerebellar atrophy and small vessel disease. Laboratory Results WBC 5.04 10^3/uL (3.29-11.43) 02/11/25 14:15 RBC 4.53 10^6/uL (3.85-5.65) 02/11/25 14:15 Hgb 12.70 g/dL (11.27-16.99) 02/11/25 14:15 Hct 38.5 % (36-47) 02/11/25 14:15 MCV 85.0 fl (85-98) 02/11/25 14:15 MCH 28.0 pg (27-33) 02/11/25 14:15 MCHC 33.0 g/dL (30-55) 02/11/25 14:15 RDW 14.1 % (12.1-15.1) 02/11/25 14:15 Plt Count 185 10^3/cmm (157-399) 02/11/25 14:15 MPV 10.1 fL (7.4-10.4) 02/11/25 14:15 Neut % (Auto) 69.8 % 02/11/25 14:15 Lymph % (Auto) 21.4 % 02/11/25 14:15 Canadian % (Auto) 6.0 % 02/11/25 14:15 Eos % (Auto) 1.4 % 02/11/25 14:15 Baso % (Auto) 1.0 % 02/11/25 14:15 Neut # (Auto) 3.52 10^3/uL (1.8-7.7) 02/11/25 14:15 Lymph # (Auto) 1.1 10^3/uL (0.8-4.8) 02/11/25 14:15 Canadian # (Auto) 0.3 10^3/uL (0.2-0.9) 02/11/25 14:15 Eos # (Auto) 0.1 10^3/uL (0.0-0.8) 02/11/25 14:15 Baso # (Auto) 0.1 10^3/uL (0.0-0.1) 02/11/25 14:15 Nucleated RBC % (auto) 0 % 02/11/25 14:15 Nucleated RBCs # 0.0 /100WBC 02/11/25 14:15 Sodium 143 mmol/L (136-145) 02/11/25 14:15 Potassium 3.6 mmol/L (3.5-5.1) 02/11/25 14:15 Chloride 101 mmol/L (98-107) 02/11/25 14:15 Carbon Dioxide 24 mmol/L (22-29) 02/11/25 14:15 Anion Gap 21.6 (5-19) H 02/11/25 14:15 BUN 10 mg/dL (8-23) 02/11/25 14:15 Creatinine 0.8 mg/dL (0.5-0.9) 02/11/25 14:15 GFR Calculation Not Reportable 02/11/25 14:15 Glucose 173 mg/dL (65-115) H 02/11/25 14:15 Calculated Osmolality 299 mOsm/kg (285-295) H 02/11/25 14:15 Lactic Acid 4.7 mmol/L (0.5-2.2) H* 02/11/25 14:15 Calcium 9.2 mg/dL (8.5-10.5) 02/11/25 14:15 Total Bilirubin 0.7 mg/dL (0.15-1.2) 02/11/25 14:15 AST 48 U/L (0-32) H 02/11/25 14:15 ALT 55 U/L (0-33) H 02/11/25 14:15 Alkaline Phosphatase 88 U/L (35-105) 02/11/25 14:15 Troponin T Baseline 12 ng/L (0-10) H 02/11/25 14:15 C-Reactive Protein 3.0 mg/L (0.0-4.9) 02/11/25 14:15 Total Protein 6.2 g/dL (6.6-8.7) L 02/11/25 14:15 Albumin 4.3 g/dL (3.5-5.2) 02/11/25 14:15 Globulin 1.9 g/dL (1.3-4.6) 02/11/25 14:15 Lipase 45 U/L (13-60) 02/11/25 14:15 Procalcitonin 0.09 ng/mL (0-0.5) 02/11/25 14:15 Urine Color Yellow (Yellow) 02/11/25 13:38 Urine Appearance Cloudy (CLEAR) A 02/11/25 13:38 Urine pH 5 (5-7) 02/11/25 13:38 Ur Specific [place] 1.020 (1.005-1.030) 02/11/25 13:38 Urine Protein Trace (Negative) 02/11/25 13:38 Urine Glucose (UA) Norm (Normal) 02/11/25 13:38 Urine Ketones Negative (Negative) 02/11/25 13:38 Urine Blood 2+ (Negative) H 02/11/25 13:38 Urine Nitrate Positive (Negative) A 02/11/25 13:38 Urine Bilirubin Neg (Negative) 02/11/25 13:38 Urine Urobilinogen Neg mg/dL (Negative) 02/11/25 13:38 Ur Leukocyte Esterase 1+ (Negative) H 02/11/25 13:38 Urine RBC 0-2 /hpf (0-2) 02/11/25 13:38 Urine WBC 21-50 /hpf (0-5) H 02/11/25 13:38 Ur Squamous Epith Cells 51-100 /hpf (0-5) 02/11/25 13:38 Amorphous Sediment Not Reportable 02/11/25 13:38 Urine Bacteria 4+ /hpf (NONE) H 02/11/25 13:38 Hyaline Casts 7.01 /lpf 02/11/25 13:38 All radiology interpretation(s) finalized by discharge Discharge Plan Discharge Patient Disposition: Home Clinical Impression: Urinary tract infection Condition: Stable Prescriptions: New cefdinir 300 mg capsule 300 mg PO BID 10 Days Qty: 20 0RF No Action memantine 10 mg tablet 10 mg PO BID Qty: 180 3RF potassium chloride 10 mEq tablet extended release 10 meq PO QAM acetaminophen [Tylenol Arthritis Pain] 650 mg Tablet Extended Release See Rx Instructions .ROUTE .COMPLEX PRN (Reason: Pain) Rx Instructions: Take 2 tablets by mouth in the am and 1 tablet at night. Women's 50 Plus Multivitamin 400 mcg-500 mg calcium-20 mcg Tablet 1 tab PO DAILY donepezil 23 mg tablet 23 mg PO BEDTIME tramadol 50 mg tablet 25 mg PO Q6H PRN (Reason: pain) Qty: 14 0RF atorvastatin 20 mg tablet 20 mg PO QPM metformin 500 mg tablet extended release 24 hr 1,000 mg PO DAILY glimepiride 2 mg tablet 2 mg PO QAM isosorbide mononitrate 60 mg Tablet Extended Release 24 Hr 60 mg PO DAILY Qty: 30 0RF quetiapine [Seroquel] 25 mg tablet See Rx Instructions .ROUTE .COMPLEX Rx Instructions: Take 1 tablet by mouth at bedtime and every 6 hours as needed for agitation furosemide 40 mg tablet 40 mg PO QAM PRN (Reason: swelling or weight gain of 5 lbs) clopidogrel [Plavix] 75 mg tablet 75 mg PO QAM pantoprazole 40 mg tablet,delayed release (DR/EC) 40 mg PO QAM Discharge Orders: Discharge ED (Routine); Ordered 02/11/25 Ordered By: Bere Boateng Discharge Diet: Usual diet Discharge Activity: Increase activity as tolerated Patient Instructions: Urinary Tract Infection in Older Adults (ED), Opioid Safety, Pain Management, Patient Portal & Luh Instructions Activity Restrictions/Additional Instructions: Thank you for choosing [facility] for your healthcare needs today. You have been screened and evaluated and felt safe for discharge. Health conditions do change or evolve sometimes and as such it is important that you follow up with your Primary Doctor to be re checked, 3-5 days is a general good time frame for follow up. You are always welcome to return to the ED for re assessment if your symptoms are worsening or you have new concerns Print Language: Setswana Coding Level of Care Code ED Spa Assistant Manager for Sherie Arboleda
--- NOTE | 2025-02-11 13:26 | ECG_ITS ---
[facility] 2025-02-11 Pat Name: Raven Rocha Department: Room: Gender: Female Barrel Cleaner: : 1945 Requested By: Bere Heath Order Number: [id number] Hudson MD: Tiburcio Alcala M.D. Measurements Intervals [place] Rate: 64 P: 66 [place]: 191 QRS: -26 QRSD: 110 T: 18 QT: 428 QTc: 445 Interpretive Statements SINUS RHYTHM BORDERLINE LEFT AXIS DEVIATION [QRS AXIS < -20] INCOMPLETE RIGHT BUNDLE BRANCH BLOCK [90+ ms QRS DURATION, TERMINAL R IN V1/V2, 40+ ms S IN I/aVL/V4/V5/V6] NONSPECIFIC ST & T-WAVE ABNORMALITY Compared to ECG 12/22/2024 20:25:45 Sinus bradycardia no longer present Prolonged QT interval no longer present T-wave abnormality still present Electronically Signed On 02-12-2025 16:54:14 CDT by Tiburcio Alcala M.D. [email or web address]
--- NOTE | 2025-02-11 13:32 | CT_ITS ---
WS: [id number] CT HEAD NONCONTRAST HISTORY: Encephalopathy, altered mental status TECHNIQUE: Contiguous axial imaging performed through the brain. Bone and soft tissue windows. Sagittal and coronal reformats reviewed. All CT scans at [facility] use at least one of these dose optimization techniques: automated exposure control; mA and/or kV adjustment per patient size (includes targeted exams where dose is matched to clinical indication); or iterative reconstruction. DLP: 1049.29 mGy.cm COMPARISON: 01/03/2024 No acute intracranial hemorrhage, midline shift or mass effect. Moderate symmetric atrophy and moderate small vessel disease. No large territory infarct. Ventricles: Ventricles and extra-axial spaces are prominent on the basis of atrophy. Paranasal sinuses: As visualized are clear. Mastoid air cells: Well pneumatized. Calvarium and scalp: Skull is intact with no soft tissue edema or swelling. CT/CT head wo con* [id number] IMPRESSION: 1. No acute intracranial hemorrhage or edema. 2. Moderate cerebral and cerebellar atrophy and small vessel disease.
--- OUTSIDE RECORDS SUMMARY | 2025-02-11 14:01 | XMS_ITS | Encounter Summary ---
Author Organization [facility] Address [address] [place] [address] Care Team Providers Care Foundry Supervisor Name Role Phone Unavailable Primary Care Provider Unavailabl e Encounter Details Date Type Department Care Team (Latest Contact Info) Description 09/26/2001 Outpatient Historical [facility] Medicine [place] [address] [place] [id number] Bienvenido Carbajal MD SCREENING MAL NEOP-COLON (Primary Dx) Social History Tobacco Use Types Packs/Day Years Used Date Smoking Tobacco: Never Assessed Comments Unknown Sex and Gender Information Value Date Recorded Sex Assigned at Not on file Legal Sex Female 5:26 AM LASTER HAND Gender Identity Not on file Sexual Orientation Not on file documented as of this encounter Plan of Treatment Not on file documented as of this encounter Visit Diagnoses Diagnosis Special screening for malignant neoplasms, colon- Primary documented in this encounter
--- OUTSIDE RECORDS SUMMARY | 2025-02-11 14:01 | XMS_ITS | Encounter Summary ---
Author Organization [facility] Address [address] [place] [address] Care Team Providers Care Utility Worker Roller Shop Name Role Phone Unavailable Primary Care Provider Unavailabl e Encounter Details Date Type Department Care Team (Late st Contact Info) Description 12/02/2002 Outpatient Historical [facility] Imaging Services [place] [address] 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
--- OUTSIDE RECORDS SUMMARY | 2025-02-11 14:01 | XMS_ITS | Clinical Summary ---
Author Organization [facility] Address [address] 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
--- OUTSIDE RECORDS SUMMARY | 2025-02-11 14:01 | XMS_ITS | Patient Health Record ---
Author Organization [facility] Address [address] [place] [address] Care Team Providers Care Excavator Operator Name Role Phone Ramirez Santana Primary Care Provider [phone] Allergies Allergen (clinical drug ingredient) Drug/Non Drug Allergy documented on EMR Reaction Allergy Type Onset Date Status cephalexin Cephalexin , Drug Allergy Activ e glimepiride glimepiride , Drug Allergy Act hung levofloxacin levoFLOXacin , Drug Allergy A ctive pregabalin pregabalin , Drug Allergy Activ e sumatriptan Sumatriptan , Drug Allergy Act uhng Reason For Referral No Information Medications Medication [...] 40 MG Oral Tablet 12/25/2017 Active Pyridostigmine Ferguson 60 MG Oral Tablet Pyridostigmine Ferguson 60 MG Oral Tablet 12/25/2017 Active 24 HR Metoprolol Tartrate 25 MG Extended Release Tablet 24 HR Metoprolol Tartrate 25 MG Extended Release Tablet 12/25/2017 Active Potassium Chloride 1.33 MEQ Oral Tablet Potassium Chloride 1.33 MEQ Oral Tablet 12/25/2017 Active Immunizations Vaccine Route Administration Date Status Comme nts Influenza (whole), CPT 98633 Inactive Unknown 02/22/2018 Administered Social History Social History Additional Details Category Social Info Options Details zzMigrated Social History Migrated Social History Smoking Status:Never smoked tobacco (finding) Plan Of Treatment No Information
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
--- OUTSIDE RECORDS SUMMARY | 2025-02-11 14:01 | XMS_ITS | Clinical Summary ---
Author Organization [facility] Address [address] Attn: Epic Prelude ADT MARJORIEOSKAR JOSECOREY GALVAN [address] Care Team Providers Care Rooming House Keeper Name Role Phone Unavailable Primary Care Provider Unavailabl e Encounters Date Type Department Care Team Description 12/27/2024 Orders Only [facility]- [place] 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
[2025-02-11 14:33] LABS: Glucose Urine UA Norm (Normal); Nitrate Urine Positive (Negative); Specific Gravity, Urine 1.020 (1.005-1.030); UA Slide Review UA Slide Review Perf
[2025-02-11 14:46] LABS: Hematocrit 38.5 % (36-47); Hemoglobin 12.70 g/dL (11.27-16.99); Mean Corpuscular HGB Conc 33.0 g/dL (30-55); Mean Corpuscular Hemoglobin 28.0 pg (27-33); Mean Corpuscular Volume 85.0 fl (85-98); Nucleated Red Blood Cells % 0 %; Platelet Count 185 10^3/cmm (157-399); Red Blood Count 4.53 10^6/uL (3.85-5.65); White Blood Count 5.04 10^3/uL (3.29-11.43)
[2025-02-11 15:09] LABS: Lactic Sepsis W/Reflex 4.7 mmol/L (0.5-2.2); Troponin(5th) Baseline 12 ng/L (0-10)
--- NOTE | 2025-02-11 15:17 | ECG_ITS ---
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
[2025-02-11 15:18] LABS: Procalcitonin 0.09 ng/mL (0-0.5)
[2025-02-11] MEDS: cefTRIAXone 1,000 mg SDV 1000 MG IVP (15:22)
[2025-02-11 15:27] VITALS: BP 114/88; PULSE 66; RESP 16; O2SAT 95
[2025-02-11 15:29] LABS: Alanine Aminotransferase 55 U/L (0-33); Albumin Level 4.3 g/dL (3.5-5.2); Alkaline Phosphatase 88 U/L (35-105); Anion Gap 21.6 (5-19); Aspartate Amino Transferase 48 U/L (0-32); Blood Urea Nitrogen 10 mg/dL (8-23); Calcium 9.2 mg/dL (8.5-10.5); Carbon Dioxide 24 mmol/L (22-29); Chloride 101 mmol/L (98-107); Globulin 1.9 g/dL (1.3-4.6); Glucose 173 mg/dL (65-115); Lipase 45 U/L (13-60); Osmolality Calculated 299 mOsm/kg (285-295); Potassium 3.6 mmol/L (3.5-5.1); Sodium 143 mmol/L (136-145); Total Protein 6.2 g/dL (6.6-8.7)
[2025-02-11 16:29] LABS: Reflex Lactate Order REFLEX LACTIC ORDERD
[2025-02-11 16:32] VITALS: BP 139/82; PULSE 57; RESP 16; O2SAT 96
== END 2025-02-11 16:32 | disposition home or self-care (01) ==
PROVIDERS: Emergency Provider Emergency Medicine
DX: N39.0 Urinary tract infection, site not specified (principal); Z79.02 Long term (current) use of antithrombotics/antiplatelets; E78.5 Hyperlipidemia, unspecified; I10 Essential (primary) hypertension; Z79.84 Long term (current) use of oral hypoglycemic drugs
CPT/HCPCS: 36415; 70450; 71045; 80053; 81001; 83605; 83690; 84145; 84484; 85025; 86140; 87040; 93005; 96361; 96374; 99285; J0696; J7030

== ENCOUNTER 2025-03-11 13:54 | Emergency (ER) | payer MEDICARE, SELFPAY ==
--- OUTSIDE RECORDS SUMMARY | 2024-02-05 04:45 | XMS_ITS ---
Author Organization [facility] Address [address] [place] [address] [place] [id number] Care Team Providers Care Chemical Research Technician Name Role Phone CEASAR NGUYEN Primary Care Provider [phone] CARMEN FINCH Unavailable [phone] REASON FOR VISIT EKG, CXR, Patient c/o, Has the patient seen any other doctors or specialist or had any labs or DI'sdone by any other doctors or specialist since last visit?, Any med changes since last visit?, Does patient need any refills?, What pharmacy does the patient use?, Checked in By: Medications Medication SIG (Take, Route, Frequency, Duration) Notes Start Date End Date Status Incontinence Supplies pull ups - - apply one DX: R32 PULL UPS as needed 10/24/2023 Active Home Health --- HH to provide care at home DX- F03.90 Eval for care home 10/24/2023 Active Shoe Inserts --- wear one pair daily DX:E11.65 daily for walking 11/10/2020 Active DIABETIC SHOES --- wear one pair DX-E11.65 AODM DAILY FOR WALKING 11/10/2020 Active Memantine HCl 10 MG 1 tablet Orally once a day decreased by Dr. Ramsay Active Pantoprazole Sodium 40 MG 1 tablet Orally Once a day 10/26/2017 Active Glimepiride 2 MG 1 tablet with breakfast or the first main meal of the day Orally Once a day 04/29/2020 Active Atorvastatin Calcium 20 MG 1 tablet Orally Once a day Pharmacy 09/11/2017 Active INCONTINENCE PADS --- apply one PELVIC AREA DX: R32 Four Times A Day 01/17/2022 Active metFORMIN HCl ER 500 MG 2 tablet Orally one a day per Pts daughter, she is only taking this once a day 04/29/2020 Active Plavix 75 MG 1 tablet Orally Once a day 07/31/2017 Active Lasix 40 MG 1 tablet Orally Once a day 08/19/2016 Active Isosorbide Mononitrate ER 120 MG 1 tab(s) Orally Once a day 03/12/2020 Active Encounters Encounter Location Date Provider Diagnosis [facility] [address] , [address] [place], [place] [id number] 02/05/2024 CARMEN STEF Angina pectoris I20.9 ; HTN I10 ; CVA (cerebral vascular accident) I63.9 ; Hypercholesterolemia E78.00 ; 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 ; GERD K21.00 ; Urinary incontinence R32 ; Memory loss R41.3 and Dementia, senile F03.90 Assessments Encounter Date Diagnosis (ICD Code) Assessment Notes Treatment Notes Treatment Clinical Notes Section Notes 02/05/2024 Angina pectoris (ICD -10 - I20.9) 02/05/2024 HTN (ICD-10 - I10) 02/05/2024 CVA (cerebral vascul ar accident) (ICD-10 - I63.9) 02/05/2024 Hypercholesterolemia (ICD-10 - E78.00) 02/05/2024 AODM 2 with hyperglycemia (ICD-10 - E11.65) 02/05/2024 GERD (ICD-10 - K21.00) 02/05/2024 Urinary incontinence (ICD-10 - R32) 02/05/2024 Memory loss (ICD-10 - R41.3) 02/05/2024 Dementia, senile (IC D-10 - F03.90) Plan Of Treatment Medication Medication Name Sig Start Date Stop Date Notes Incontinence Supplies pull ups - - apply one DX: R32 PULL UPS as needed 10/24/2023 Home Health --- HH to provide care at home DX- F03.90 Eval for care home 10/24/2023 Shoe Inserts --- wear one pair daily DX:E11.65 daily for walking 11/10/2020 DIABETIC SHOES --- wear one pair DX-E11.65 AODM DAILY FOR WALKING 11/10/2020 Memantine HCl 10 MG 1 tablet Orally once a day decreased by Dr. Ramsay Pantoprazole Sodium 40 MG 1 tablet Orally Once a day 10/26/2017 Glimepiride 2 MG 1 tablet with breakfast or the first main meal of the day Orally Once a day 04/29/2020 Atorvastatin Calcium 20 MG 1 tablet Orally Once a day 09/11/2017 Pharmacy INCONTINENCE PADS --- apply one PELVIC AREA DX: R32 Four Times A Day 01/17/2022 metFORMIN HCl ER 500 MG 2 tablet Orally one a day 04/29/2020 per Pts daughter, she is only taking this once a day Plavix 75 MG 1 tablet Orally Once a day 07/31/2017 Lasix 40 MG 1 tablet Orally Once a day 08/19/2016 Isosorbide Mononitrate ER 120 MG 1 tab(s) Orally Once a day 03/12/2020 Progress Notes * SACHA COBURN PDOB: 7 (79 yo F)Acc No.[id number]:02/05/2024 Patient: SACHA BRICEÑO Provider: Julieta FINCH :1945 A ge:78 Y S ex:Female Date:02/05/2024 Address:[address] [place] [address] Pcp:CEASAR Anderson SRA Subjective: * Chief Complaints: * 1 . EKG, CXR. 2. Patient c/o. 3. Has the patient seen any other doctors or specialist or had any labs or DI's done by any other doctors or specialist since last visit?. 4. Any med changes since last visit?. 5. Does patient need any refills?. 6. What pharmacy does the patient use?. 7. Checked in By:. * Medical History: * Medications: T aking Isosorbide Mononitrate ER 120 MG Tablet Extended Release 24 Hour 1 tab(s) Orally Once a day , Taking Lasix 40 MG Tablet 1 tablet Orally Once a day , Taking Plavix 75 MG Tablet 1 tablet Orally Once a day , Taking Atorvastatin Calcium 20 MG Tablet 1 tablet Orally Once a day , Notes to Pharmacist: Pharmacy, Taking Glimepiride 2 MG Tablet 1 tablet with breakfast or the first main meal of the day Orally Once a day , Taking Pantoprazole Sodium 40 MG Tablet Delayed Release 1 tablet Orally Once a day , Taking metFORMIN HCl ER 500 MG Tablet Extended Release 24 Hour 2 tablet Orally one a day , Notes to Pharmacist: per Pts daughter, she is only taking this once a day, Taking INCONTINENCE PADS --- PADS apply one PELVIC AREA DX: R32 Four Times A Day , Taking Memantine HCl 10 MG Tablet 1 tablet Orally once a day , Notes to Pharmacist: decreased by Dr. Ramsay, Taking DIABETIC SHOES --- --- wear one pair DX- E11.65 AODM DAILY FOR WALKING , Taking Shoe Inserts --- --- wear one pair daily DX:E11.65 daily for walking , Taking Home Health --- --- HH to provide care at home DX- F03.90 Eval for care home , Taking Incontinence Supplies pull ups - - PULL UPS apply one DX: R32 PULL UPS as needed Objective: * Vitals: Assessment: * Assessment: 1. A ngina pectoris - I20.9 2 . H TN - I10 3 . C VA (cerebral vascular accident) - I63.9 4 . H ypercholesterolemia - E78.00 ?5. 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 G ERD - K21.00 7. U rinary incontinence - R32 [address] loss - R41.3 ?9. D ementia, senile - F03.90 Plan: * Treatment: 2. H TN Continue Lasix Tablet, 40 MG, 1 tablet, Orally, Once a day. 3. C VA (cerebral vascular accident) Continue Plavix Tablet, 75 MG, 1 tablet, Orally, Once a day. 4. H ypercholesterolemia Continue Atorvastatin Calcium Tablet, 20 MG, 1 tablet, Orally, Once a day, Notes to Pharmacist: Pharmacy. 5. A ODM 2 with hyperglycemia Continue Glimepiride Tablet, 2 MG, 1 tablet with breakfast or the first main meal of the day, Orally, Once a day; C ontinue metFORMIN HCl ER Tablet Extended Release 24 Hour, 500 MG, 2 tablet, Orally, one a day, Notes to Pharmacist: per Pts daughter, she is only taking this once a day; C ontinue DIABETIC SHOES ---, ---, wear one pair, DX-E11.65 AODM, DAILY FOR WALKING; C ontinue Shoe Inserts ---, ---, wear one pair daily, DX:E11.65, daily for walking. 6. G ERD Continue Pantoprazole Sodium Tablet Delayed Release, 40 MG, 1 tablet, Orally, Once a day. ? 7. U rinary incontinence Continue INCONTINENCE PADS PADS, ---, apply one, PELVIC AREA DX: R32, Four Times A Day; C ontinue Incontinence Supplies pull ups PULL UPS, - -, apply one DX: R32, PULL UPS, as needed. 8. M court loss Continue Memantine HCl Tablet, 10 MG, 1 tablet, Orally, once a day, Notes to Pharmacist: decreased by Dr. Ramsay. 9. D ementia, senile Continue Home Health ---, ---, to provide care at home, DX- F03.90, Eval for care home.? * Care Plan Details* * Electronic signature of TERRANCE RESTREPO APRN on 03/11/2025 at 01:58 PM HAND THERMAL CUTTER Sign off status: Pending * Provider: Julieta FINCH Date: Generated for Ana jhaveri/Shruthi/Tomy on: 05/11/2024 01:58 PM HAND THERMAL CUTTER
--- OUTSIDE RECORDS SUMMARY | 2024-08-26 04:15 | XMS_ITS ---
Author Organization [facility] Address [address] [place] [address] [place] [id number] Care Team Providers Care Airplane Mechanic Apprentice Name Role Phone CEASAR NGUYEN Primary Care Provider [phone] CARMEN FINCH [phone] Encounters Encounter Location Date Provider Diagnosis [facility] [address] [place] [address] [place] [id number] 08/26/2024 CARMEN FINCH Plan Of Treatment No Information Progress Notes * SACHA COBURN PDOB: 7 (79 yo F)Acc No.[id number]:08/26/2024 Patient: Jerome LEILANI SACHA Anderson Provider: Julieta FINCH :1945 A ge:79 Y S ex:Female Date:08/26/2024 Address:[address] [place] [address], [facility] Pcp:CEASAR Anderson SRA Subjective: * Chief Complaints: * * Medical History: Objective: * Vitals: Assessment: Plan: * Treatment: * Care Plan Details* * Electronic signature of TERRANCE RESTREPO APRN on 03/11/2025 at 01:58 PM SECURITY SYSTEM ANALYST Sign off status: Pending * Provider: Julieta FINCH Date: 0 08/26/2024 Generated for Ana jhaveri/Shruthi/eTransmitting on: 1 05/11/2024 01:58 PM SECURITY SYSTEM ANALYST
[2025-03-11 13:56] VITALS: BP 161/91; PULSE 58; RESP 16; TEMP 36.4; O2SAT 98
--- OUTSIDE RECORDS SUMMARY | 2025-03-11 13:59 | XMS_ITS | Encounter Summary ---
Author Organization [facility] Address [address] [place] [address] Care Team Providers Care Business Development Analyst Name Role Phone Unavailable Primary Care Provider Unavailabl e Encounter Details Date Type Department Care Team (Late st Contact Info) Description 12/02/2002 Outpatient Historical [facility] [place] [address] [place] [address] Michael Edwards MD [address] [place] [phone] Social History Tobacco Use Types Packs/Day Years Used Date Smoking Tobacco: Never Assessed Comments Unknown Sex and Gender Information Value Date Recorded Sex Assigned at Not on file Legal Sex Female 5:26 AM CAPTAIN [employer]RE [employer] Gender Identity Not on file Sexual Orientation Not on file documented as of this encounter Plan of Treatment Not on file documented as of this encounter Visit Diagnoses Not on filedocumented in this encounter
--- OUTSIDE RECORDS SUMMARY | 2025-03-11 13:59 | XMS_ITS | Clinical Summary ---
Author Organization [facility] Address [address] [facility] Attn: Epic Prelude ADT MARJORIEOSKAR JOSECOREY GALVAN [address] Care Team Providers Care Family Living Educator Name Role Phone Unavailable Primary Care Provider Unavailabl e Encounters Date Type Department Care Team Description 12/27/2024 Orders Only [facility]astroenterology- [place] [address] [facility] [address] [place] [address] Nader Nowak PA Generalized abdominal pain (Primary Dx) from Last 3 Months Social History Tobacco Use Types Packs/Day Years Used Date Smoking Tobacco: Never Assessed Comments Unknown Sex and Gender Information Value Date Recorded Sex Assigned at Not on file 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
--- OUTSIDE RECORDS SUMMARY | 2025-03-11 13:59 | XMS_ITS | Data Portability ---
Author Organization [facility] Address [address] [place] [address] LILLY Bishop [address] Care Team Providers Care Delivery Of Shopping News Name Role Phone CEASAR MCGUIRE Primary Care Provider CEASAR MCGUIRE Referring Provider [phone] Assessment No assessment recorded. Plan of Treatment Reminders Order Date Submit Date Provider Last Modified By Organization Details Last Modified Time Details Appointments Estab riki England nt 30 2025 10:00A M KATHE ROGERS Not available Not available Not available Lab lipas e, serum or plasm a 2024 025 [facility], [address] [place], [address], 01/02/2025 09:32:50 amyla se, serum or plasm a 2024 025 [facility], [address] [place], [address], 01/02/2025 09:32:49 CMP, serum or plasm a 2024 025 [facility], [address] [place], [address], 01/02/2025 09:32:48 CMP, serum or plasm a 2024 025 [facility], [address] [place], [address], 08/27/2024 12:55:41 CBC w/ auto diff 04/28/ 2025 04/28/2 025 [facility], [address] Karen Yahir White [employer], [address], 08/27/2024 12:55:43 lipid panel , serum 2024 025 [facility], [address] Yahir Ramirez [employer], [address], 08/27/2024 12:55:37 CK (crea cruz kinas e), total , serum 2024 025 [facility], [address] Yahir Ramirez [employer], [address], 08/27/2024 12:55:42 ldh, serum or plasm a 2024 025 [facility], [address] Karen Reno [place], [employer], [address], 08/27/2024 12:55:40 vitam in D, 25-hy droxy , total , serum 2024 025 [facility], [address] Karen Christopher [place] [employer], [address], 08/27/2024 12:55:44 HbA1c (hemo globi n A1c), blood 2024 025 [facility], [address] Karen Christopher [place], [employer], [address], 08/27/2024 12:55:46 micro album in/cr eatin ine, mass ratio , urine 2024 025 [facility], [address] Juventino Ramireza [employer], [address], 08/27/2024 12:55:39 Referral gastr cristy romero ist refer ral 2024 025 [facility] ([facility] [place], [address], 01/09/2025 15:42:06 Procedures None recor ded. Surgeries None recor ded. Imaging None recor ded. Medication Orders clopi dogre l 75 mg table t 2024 025 [facility], [address] [facility] [place], [address], 08/26/2024 12:16:23 donep ezil 23 mg table t 2024 025 [facility] [address], [address] [facility] [place], [address], 08/26/2024 12:16:28 meman cruz 10 mg table t 2024 025 [facility] [address], [address] [facility] [place], [address], 08/26/2024 12:16:26 atorv astat in 20 mg table t 2024 025 [facility] [address], [address] [facility] [place], [address], 08/26/2024 12:16:20 panto prazo le 40 mg table t,del ayed relea se 2024 025 [facility] [address], [address] [facility] [place], [address], 08/26/2024 12:16:31 queti apine 25 mg table t 2024 025 [facility] [address], [address] [facility] [place], [address], 08/26/2024 12:16:27 furos emide 40 mg table t 2024 025 [facility] [address], [address] [place], [address], 08/26/2024 12:16:27 potas sium chlor eunice ER 10 mEq table t,ext ended relea se 2024 025 [facility] [address], [address] [place], [address], 08/26/2024 12:16:22 isoso rbide monon itrat e ER 120 mg table t,ext ended relea se 24 hr 2024 025 [facility] [address]37, [address] [place], [address], 01/01/2025 11:56:28 glime pirid e 2 mg table t 2024 025 [facility] [address], [address] [place], [address], 08/26/2024 12:16:22 metfo rmin ER 500 mg table t,ext ended relea se 24 hr 2024 025 [facility] [address], [address] [place], [address], 08/26/2024 12:16:28 Patient TargetsNo targets recorded. Patient Instructions Encounter Date Encounter Id Patient Instructions Last Modified By Organization Details Last Modified Time 01/01/2025 [id number] Discharged to home in stable condition. Follow-up as needed and at your next scheduled appt. Not available 12/31/2024 17:29:56 Reason for Referral Meeting Manager Referral for CT of abdomen abnormal abnormal abdominal CT abd/pelvis pancreatic abnormality, recent pancreatitis with hospital admission Referring Physician: Kathe Rogers, Family Medicine, Encounter Date: 01/01/2025 Results Created Date Observation Date Name Description Value Unit Range Abnormal Flag Note LastModifiedBy Organization Detail LastModifiedTime 08/27/19 25 08/27/2024 LIPID PANEL , STAND CED cholesterol, total 125 mg/dL <200 normal Not Available [facility] [address] [place], [address], 08/27/2024 12:55:37 08/27/1908/27/2024 LIPID PANEL , STAND CED HDL cholesterol 49 mg/dL > or = 50 low Not Available [facility] [address] [place], [address], 08/27/2024 12:55:37 08/27/1908/27/2024 LIPID PANEL , STAND CED triglyceride s 278 mg/dL <150 high If a non-f astin g speci men was colle cted, consi bridger repea t trigl yceri de testi ng on a fasti ng speci men if clini josue indic ated. Iam lugo et al. J. of Clin. Lipid ol. 2015; 9:129 -169. Not Available [facility] [address] [facility] [place], [address], 08/27/2024 12:55:37 08/27/19 25 08/27/2024 LIPID PANEL , STAND CED LDL-choleste rol 43 mg/dL _(sulma c) normal Refer ence range : <100 Jayshree able range <100 mg/dL for prima ry preve ntion ; <70 mg/dL for patie nts with CHD or diabe tic patie nts with > or = 2 CHD risk facto rs. LDL-C is now calcu lated using the Ciarra n-Hop kins calcu rakan n, which is a valid ated novel geneo d kadeem hicks accur acy than the Fried manuel equat ion in the estim ation of LDL-C . Ciarra zepeda SS et al. OSIRIS. 2013; 310(1 9): 2061- 2068 (http ://ed ucati on.Qu estDi Starfish 360s. com/f aq/FA Q164) Not Available [facility] [address] [place], [address], 08/27/2024 12:55:37 08/27/1908/27/2024 LIPID PANEL , STAND CED chol/HDLC ratio 2.6 (calc ) <5.0 normal Not Available [address] [address] [place], [address], 08/27/2024 12:55:37 08/27/1908/27/2024 LIPID PANEL , STAND CED non HDL cholesterol 76 mg/dL _(sulma c) <130 normal For patie nts with diabe kayode plus 1 major ASCVD risk facto r, treat ing to a non-H DL-C goal of <100 mg/dL (LDL- C of <70 mg/dL ) is consi dered a thera peuti c optio n. Not Available [address] [address] [place], [address], 08/27/2024 12:55:37 08/27/19 25 08/27/2024 ALBUM IN, RANDO M URINE W/CRE ATINI NE creatinine, random urine 27 mg/dL 20-275 normal Not Available [address] [address] [place], [address], 08/27/2024 12:55:38 08/27/19 25 08/27/2024 ALBUM IN, RANDO M URINE W/CRE ATINI NE albumin, urine 2.0 mg/dL see note: normal Refer ence Range : Refer ence Range Not estab lishe d Not Available [address] [address] [place], [address], 08/27/2024 12:55:38 08/27/1908/27/2024 ALBUM IN, RANDO M URINE W/CRE ATINI NE albumin/crea tinine ratio, random urine 74 mg/g_ creat <30 high The ADA defin es abnor malit ies in album in excre tion as follo ws: Album inuri a Categ ory Resul t (mg/g creat inine ) Kimberly l to Mildl y incre ased <30 Moder ately incre ased 30-29 9 Sever tosin incre ased > OR = 300 The ADA recom mends that at least two of three speci mens colle cted withi n a 3-6 month perio d be abnor mal befor e consi dalila g a patie nt to be withi n a diagn ostic categ ory. Not Available [address], [address], 08/27/2024 12:55:38 08/27/19 25 08/27/2024 LD LD 164 U/L 120-25 0 normal Not Available [address], [address], 08/27/2024 12:55:40 08/27/19 25 08/27/2024 COMPR EHENS EBONI METAB OLIC PANEL glucose 139 mg/dL 65-99 high Fasti ng refer ence inter freddie For someo ne witho ut known diabe kayode, a gluco se value >125 mg/dL indic ates that they may have diabe kayode and this shoul d be confi rmed with a follo w-up test. Not Available [address], [address], 08/27/2024 12:55:41 08/27/19 25 08/27/2024 COMPR EHENS EBONI METAB OLIC PANEL urea nitrogen (BUN) 15 mg/dL 7-25 normal Not Available [address], [address], 08/27/2024 12:55:41 08/27/19 25 08/27/2024 COMPR EHENS EBONI METAB OLIC PANEL creatinine 0.81 mg/dL 0.60-1 .00 normal Not Available [address], [address], 08/27/2024 12:55:41 08/27/19 25 08/27/2024 COMPR EHENS EBONI METAB OLIC PANEL eGFR 74 mL/mi n/1.7 3m2 > or = 60 normal Not Available [address], [address], 08/27/2024 12:55:41 08/27/19 25 08/27/2024 COMPR EHENS EBONI METAB OLIC PANEL BUN/creatini ne ratio SEE NOTE: (calc ) 6-22 Not Repor shine: BUN and Creat inine are withi n refer ence range . Not Available [address], [address], 08/27/2024 12:55:41 08/27/19 25 08/27/2024 COMPR EHENS EBONI METAB OLIC PANEL sodium 143 mmol/ L 135-14 6 normal Not Available [address], [address], 08/27/2024 12:55:41 08/27/19 25 08/27/2024 COMPR EHENS EBONI METAB OLIC PANEL potassium 3.8 mmol/ L 3.5-5. 3 normal Not Available [address], [address], 08/27/2024 12:55:41 08/27/19 25 08/27/2024 COMPR EHENS EBONI METAB OLIC PANEL chloride 104 mmol/ L 98-110 normal Not Available [address], [address], 08/27/2024 12:55:41 08/27/19 25 08/27/2024 COMPR EHENS EBONI METAB OLIC PANEL carbon dioxide 24 mmol/ L 20-32 normal Not Available [address], [address], 08/27/2024 12:55:41 08/27/19 25 08/27/2024 COMPR EHENS EBONI METAB OLIC PANEL calcium 9.2 mg/dL 8.6-10 .4 normal Not Available [address], [address], 08/27/2024 12:55:41 08/27/19 25 08/27/2024 COMPR EHENS EBONI METAB OLIC PANEL protein, total 6.9 g/dL 6.1-8. 1 normal Not Available [address], [address], 08/27/2024 12:55:41 08/27/19 25 08/27/2024 COMPR EHENS EBONI METAB OLIC PANEL albumin 4.6 g/dL 3.6-5. 1 normal Not Available [address], [address], 08/27/2024 12:55:41 08/27/19 25 08/27/2024 COMPR EHENS EBONI METAB OLIC PANEL globulin 2.3 g/dL_ (calc ) 1.9-3. 7 normal Not Available [address], [address], 08/27/2024 12:55:41 08/27/19 25 08/27/2024 COMPR EHENS EBONI METAB OLIC PANEL albumin/glob ulin ratio 2.0 (calc ) 1.0-2. 5 normal Not Available [address], [address], 08/27/2024 12:55:41 08/27/19 25 08/27/2024 COMPR EHENS EBONI METAB OLIC PANEL bilirubin, total 0.8 mg/dL 0.2-1. 2 normal Not Available [address], [address], 08/27/2024 12:55:41 08/27/19 25 08/27/2024 COMPR EHENS EBONI METAB OLIC PANEL alkaline phosphatase 79 U/L 37-153 normal Not Available [address], [address], 08/27/2024 12:55:41 08/27/19 25 08/27/2024 COMPR EHENS EBONI METAB OLIC PANEL AST 14 U/L 10-35 normal Not Available [address], [address], 08/27/2024 12:55:41 08/27/19 25 08/27/2024 COMPR EHENS EBONI METAB OLIC PANEL ALT 13 U/L 6-29 normal Not Available [address], [address], 08/27/2024 12:55:41 08/27/19 25 08/27/2024 CREAT INE KINAS E, TOTAL creatine kinase, total 32 U/L 18-225 normal Not Available [address], [address], 08/27/2024 12:55:42 08/27/19 25 08/27/2024 CBC (INCL UDES DIFF/ PLT) white blood cell count 5.2 thous and/u L 3.8-10 .8 normal Not Available [address], [address], 08/27/2024 12:55:43 08/27/19 25 08/27/2024 CBC (INCL UDES DIFF/ PLT) red blood cell count 4.83 niranjan on/uL 3.80-5 .10 normal Not Available [address], [address], 08/27/2024 12:55:43 08/27/19 25 08/27/2024 CBC (INCL UDES DIFF/ PLT) hemoglobin 13.1 g/dL 11.7-1 5.5 normal Not Available [address], [address], 08/27/2024 12:55:43 08/27/19 25 08/27/2024 CBC (INCL UDES DIFF/ PLT) hematocrit 41.4 % 35.0-4 5.0 normal Not Available [address], [address], 08/27/2024 12:55:43 08/27/19 08/27/2024 CBC (INCL UDES DIFF/ PLT) MCV 85.7 fL 80.0-1 00.0 normal Not Available [address], [address], 08/27/2024 12:55:43 08/27/1908/27/2024 CBC (INCL UDES DIFF/ PLT) MCH 27.1 pg 27.0-3 3.0 normal Not Available [address], [address], 08/27/2024 12:55:43 08/27/1908/27/2024 CBC (INCL UDES DIFF/ PLT) MCHC 31.6 g/dL 32.0-3 6.0 low For adult s, a sligh t decre ase in the calcu lated MCHC value (in the range of 30 to 32 g/dL) is most likel y not clini josue signi keri t; kathryn er, it shoul d be inter prete d with cauti on in [facility] n with other red cell nazanin eters and the patie nt's clini sulma condi tion. Not Available [address], [address], 08/27/2024 12:55:43 08/27/1908/27/2024 CBC (INCL UDES DIFF/ PLT) RDW 15.1 % 11.0-1 5.0 high Not Available [address], [address], 08/27/2024 12:55:43 08/27/1908/27/2024 CBC (INCL UDES DIFF/ PLT) platelet count 183 thous and/u L 140-40 0 normal Not Available [address], [address], 08/27/2024 12:55:43 08/27/1908/27/2024 CBC (INCL UDES DIFF/ PLT) MPV 10.1 fL 7.5-12 .5 normal Not Available [address] [place], [address], 08/27/2024 12:55:43 08/27/19 25 08/27/2024 CBC (INCL UDES DIFF/ PLT) absolute neutrophils 3364 cells /uL 1500-7 800 normal Not Available [address], [address], 08/27/2024 12:55:43 08/27/19 25 08/27/2024 CBC (INCL UDES DIFF/ PLT) absolute lymphocytes 1446 cells /uL 850-39 00 normal Not Available [address], [address], 08/27/2024 12:55:43 08/27/19 25 08/27/2024 CBC (INCL UDES DIFF/ PLT) absolute monocytes 260 cells /uL 200-95 0 normal Not Available [address], [address], 08/27/2024 12:55:43 08/27/19 25 08/27/2024 CBC (INCL UDES DIFF/ PLT) absolute eosinophils 99 cells /uL 15-500 normal Not Available [address], [address], 08/27/2024 12:55:43 08/27/1908/27/2024 CBC (INCL UDES DIFF/ PLT) absolute basophils 31 cells /uL 0-200 normal Not Available [address], [address], 08/27/2024 12:55:43 08/27/1908/27/2024 CBC (INCL UDES DIFF/ PLT) neutrophils 64.7 % normal Not Available [address], [address], 08/27/2024 12:55:43 08/27/19 25 08/27/2024 CBC (INCL UDES DIFF/ PLT) lymphocytes 27.8 % normal Not Available [facility] [address] [address] [place], [address], 08/27/2024 12:55:43 08/27/1908/27/2024 CBC (INCL UDES DIFF/ PLT) monocytes 5.0 % normal Not Available [facility] [address] [address] [place], [address], 08/27/2024 12:55:43 08/27/19 25 08/27/2024 CBC (INCL UDES DIFF/ PLT) eosinophils 1.9 % normal Not Available [facility] [address] [address] [place], [address], 08/27/2024 12:55:43 08/27/1908/27/2024 CBC (INCL UDES DIFF/ PLT) basophils 0.6 % normal Not Available [facility] [address] [place], [address], 08/27/2024 12:55:43 08/27/1908/27/2024 VITAM IN D,25- OH,TO LEONIDES,I A vitamin D,25-oh,tota l,ia 29 NG/mL 30-100 low Vitam in D Statu s 25-OH Vitam in D: Defic iency : <20 ng/mL Insuf ficie ncy: 20 - 29 ng/mL Optim al: > or = 30 ng/mL For 25-OH Vitam in D testi ng on patie nts on D2-sagastume pplem entat ion and patie nts for whom quant itati on of D2 and D3 fract ions is requi red, the [facility] e[facility](TM ) 25-OH VIT D, (D2,D 3), LC/MS /MS is recom jocelyn d: order code 52832 (enrique ents >2yrs ). See Note 1 Note 1 For addit ional infor nestor carrillo e refer to http: //myrna lugo ics.c om/fa q/FAQ 199 (This link is being provi ded for infor cleo hogue/ educsemaj killian purpo ses only. ) Not Available [address] [address] [place], [address], 08/27/2024 12:55:44 08/27/1908/27/2024 HEMOG LOBIN A1C hemoglobin A1C 6.6 % <5.7 high For someo ne witho ut known diabe kayode, a hemog lobin A1c value of 6.5% or great er indic ates that they may have diabe kayode and this shoul d be confi rmed with a follo w-up test. For someo ne with known diabe kayode, a value <7% indic ates that their diabe kayode is well contr olled and a value great er than or equal to 7% indic ates subop timal contr ol. A1c targe ts shoul d be indiv idual ized based on durat ion of diabe kayode, age, comor bid condi tions , and other consi derat ions. Curre ntly, no conse nsus exist s ana turner use of hemog lobin A1c for diagn osis of diabe kayode for child fannie. Not Available [address] [address] [place], [address], 08/27/2024 12:55:46 01/02/2001/02/2025 COMPR EHENS EBONI METAB OLIC PANEL glucose 173 mg/dL 65-139 high Non-f astin g refer ence inter freddie Not Available [facility] [address] [address] [place], [address], 01/02/2025 09:32:48 01/02/2001/02/2025 COMPR EHENS EBONI METAB OLIC PANEL urea nitrogen (BUN) 13 mg/dL 7-25 normal Not Available [facility] [address] [address] [place], [address], 01/02/2025 09:32:48 01/02/20 25 01/02/2025 COMPR EHENS EBONI METAB OLIC PANEL creatinine 0.86 mg/dL 0.60-1 .00 normal Not Available [address], [address], 01/02/2025 09:32:48 01/02/2001/02/2025 COMPR EHENS EBONI METAB OLIC PANEL eGFR 69 mL/mi n/1.7 3m2 > or = 60 normal Not Available [address], [address], 01/02/2025 09:32:48 01/02/20 25 01/02/2025 COMPR EHENS EBONI METAB OLIC PANEL BUN/creatini ne ratio SEE NOTE: (calc ) 6-22 Not Repor shine: BUN and Creat inine are withi n refer ence range . Not Available [address], [address], 01/02/2025 09:32:48 01/02/2001/02/2025 COMPR EHENS EBONI METAB OLIC PANEL sodium 142 mmol/ L 135-14 6 normal Not Available [address], [address], 01/02/2025 09:32:48 01/02/20 25 01/02/2025 COMPR EHENS EBONI METAB OLIC PANEL potassium 3.7 mmol/ L 3.5-5. 3 normal Not Available [address], [address], 01/02/2025 09:32:48 01/02/2001/02/2025 COMPR EHENS EBONI METAB OLIC PANEL chloride 103 mmol/ L 98-110 normal Not Available [address], [address], 01/02/2025 09:32:48 01/02/20 25 01/02/2025 COMPR EHENS EBONI METAB OLIC PANEL carbon dioxide 24 mmol/ L 20-32 normal Not Available [address], [address], 01/02/2025 09:32:48 01/02/2001/02/2025 COMPR EHENS EBONI METAB OLIC PANEL calcium 9.2 mg/dL 8.6-10 .4 normal Not Available [address], [address], 01/02/2025 09:32:48 01/02/2001/02/2025 COMPR EHENS EBONI METAB OLIC PANEL protein, total 6.4 g/dL 6.1-8. 1 normal Not Available [address], [address], 01/02/2025 09:32:48 01/02/2001/02/2025 COMPR EHENS EBONI METAB OLIC PANEL albumin 4.2 g/dL 3.6-5. 1 normal Not Available [address], [address], 01/02/2025 09:32:48 01/02/2001/02/2025 COMPR EHENS EBONI METAB OLIC PANEL globulin 2.2 g/dL_ (calc ) 1.9-3. 7 normal Not Available [address], [address], 01/02/2025 09:32:48 01/02/2001/02/2025 COMPR EHENS EBONI METAB OLIC PANEL albumin/glob ulin ratio 1.9 (calc ) 1.0-2. 5 normal Not Available [address], [address], 01/02/2025 09:32:48 01/02/2001/02/2025 COMPR EHENS EBONI METAB OLIC PANEL bilirubin, total 0.6 mg/dL 0.2-1. 2 normal Not Available [address], [address], 01/02/2025 09:32:48 01/02/2001/02/2025 COMPR EHENS EBONI METAB OLIC PANEL alkaline phosphatase 72 U/L 37-153 normal Not Available [address], [address], 01/02/2025 09:32:48 01/02/20 25 01/02/2025 COMPR EHENS EBONI METAB OLIC PANEL AST 23 U/L 10-35 normal Not Available [address], [address], 01/02/2025 09:32:48 01/02/20 25 01/02/2025 COMPR EHENS EBONI METAB OLIC PANEL ALT 27 U/L 6-29 normal Not Available [address], [address], 01/02/2025 09:32:48 01/02/2001/02/2025 AMYLA SE amylase 34 U/L 21-101 normal Not Available [address], [address], 01/02/2025 09:32:49 01/02/2001/02/2025 LIPAS E lipase 86 U/L 7-60 high Not Available [address], [address], 01/02/2025 09:32:50 Result Notes None recorded. Problems Name Problem SNOMED Code Status Onset Date Resolution Date Notes Provider Name and Address Organization Details Recorded Time Type 1 diabetes mellitus 64882418 Active 2011 Relati on: Self Salud Phipps favio [facility] 5 10:53:02 Pure hypercholes terolemia 290930193 Active 2011 Relati on: Self Salud Phipps favio [facility] 5 10:52:59 Osteoarthri tis 703827495 Active 2011 Relati on: Self Salud Preciadoberhta stahl [facility] 5 10:54:31 Benign essential hypertensio n 2801024 Active 2011 Relati on: Self Salud stahl [facility] 5 10:52:56 Vitamin D deficiency 84165300 Active 2024 Salud stahl [facility] 5 10:53:49 History of cerebrovasc ular accident 969064115 Active 2024 Salud stahl [facility] 5 10:55:29 Acute pancreatiti s 482471948 Active 2024 KATHEDARLINE ROGERS [address], [place], [address], [facility] 5 12:49:59 CT of abdomen abnormal 8604595571010 9107 Active 2024 KATHE ROGERS [address], [place], [address], [facility] 5 12:50:01 Dementia 52030127 Active 2024 KATHE ROGERS [address], [place], [address], [facility] 5 20:38:22 Problem Notes None recorded. Medical Equipment None Reported. Allergies Allergen ID Allergen Name Allergen Category Reaction Reaction Severity Criticality Documentation Date Start Date Code Code System Note Provider Name and Address Organization Details Recorded Time 36632 Imitrex medicatio n Not available Not available Not available 07/06/20162011 02574 3 RxNorm Comme nt: User: tariq wray; Not Available [facility] 7 09:32:31 50350 lidocaine medicatio n Not available Not available Not available 07/06/20162011 6387 RxNorm Not Available [facility] 7 09:32:31 14619 cephalexi n monohydra te medicatio n Not available Not available Not available 07/06/20162011 21426 8 RxNorm Not Available [facility] 7 09:32:31 60233 Product containin g penicilli n (product) medicatio n Not available Not available Not available 07/06/20162011 25624 8001 SNOMED Not Available [facility] 7 09:32:31 60408 Levaquin medicatio n Not available Not available Not available 07/06/20162011 30196 2 RxNorm Not Available [facility] 7 09:32:31 17382 Aggrenox medicatio n Not available Not available Not available 07/06/20162011 45918 8 RxNorm Not Available [facility] 7 09:32:31 Medications Name Sig Start Date Stop Date Status Note LastModified by Organization Details LastModified Time pantopraz ole sodium 40 mg tbec 08/26 completed Not Available Not Available Not Available furosemid e 40 mg tabs 08/26 completed Not Available Not Available Not Available potassium chloride er 10 meq tbcr 08/26 completed Not Available Not Available Not Available donepezil hcl 10 mg tabs 08/26 completed Not Available Not Available Not Available sulfadiaz ine 500 mg tabs 08/26 completed Not Available Not Available Not Available metoprolo l tartrate 25 mg tabs 08/26 completed Not Available Not Available Not Available metronida zole 500 mg tabs 08/26 completed Not Available Not Available Not Available metoclopr amide hcl 5 mg tabs 08/26 completed Not Available Not Available Not Available quinapril hcl 40 mg tabs 08/26 completed Not Available Not Available Not Available azithromy harper 250 mg tabs 08/26 completed Not Available Not Available Not Available baclofen 10 mg tabs 08/26 completed Not Available Not Available Not Available clopidogr el 75 mg tabs 08/26 completed Not Available Not Available Not Available pyridosti gmine bromide 60 mg tabs 08/26 completed Not Available Not Available Not Available acetamino phen/code ine 300-30 mg tabs 08/26 completed Not Available Not Available Not Available neomycin/ polymyxin /dexameth asone 3.5-11176 -0.1 oint 08/26 completed Not Available Not Available Not Available atorvasta tin calcium 20 mg tabs 08/26 completed Not Available Not Available Not Available amlodipin e besylate 10 mg tabs 08/26 completed Not Available Not Available Not Available prevnar 13 susp 08/26 completed Not Available Not Available Not Available hydrocodo ne/acetam inophen 5-325 mgtabs 08/26 completed Not Available Not Available Not Available quetiapin e 25 mg tablet Take 1 tablet twice a day by oral route for 90 days. 2024 active Not Available Not Available Not Avai lable furosemid e 40 mg tablet Take 1 tablet every day by oral route. 2024 active Not Available Not Available Not Avai lable atorvasta tin 40 mg tablet TAKE 1 TABLET BY MOUTH IN THE EVENING FOR 90 DAYS 08/26 completed Not Available Not Available Not Available atorvasta tin 20 mg tablet Take 1 tablet by mouth once daily 2024 active Not Available Not Available Not Avai lable azithromy harper 250 mg tablet TAKE 2 TABLETS BY MOUTH ON DAY 1 AND THEN TAKE 1 TABLET BY MOUTH ONCE A DAY ON DAY 2 THROUGH DAY 5 08/26 completed Not Available Not Available Not Available tizanidin e 4 mg tablet TAKE 1 TABLET BY MOUTH THREE TIMES DAILY NEEDED 08/26 completed Not Available Not Available Not Available hydrocodo ne 5 mg-acetam inophen 325 mg tablet TAKE 1 TABLET BY MOUTH THREE TIMES DAILY NEEDED FOR 30 DAYS 08/26 completed Not Available Not Available Not Available donepezil 10 mg tablet TAKE 1 TABLET BY MOUTH ONCE DAILY 08/26 completed Not Available Not Available Not Available potassium chloride ER 10 mEq tablet,ex tended release Take 1 tablet every day by oral route for 90 days. 2024 active Not Available Not Available Not Avai lable clopidogr el 75 mg tablet Take 1 tablet every day by oral route. 2024 active Not Available Not Available Not Avai lable tramadol 50 mg tablet Take 0.5 tablets every 6 hours by oral route as needed. active Not Available Not Available No t Available quinapril 40 mg tablet TAKE 1 TABLET BY MOUTH ONCE DAILY FOR 90 DAYS active Not Available Not Available No t Available glimepiri de 2 mg tablet Take 1 tablet by mouth once daily 2024 active Not Available Not Available Not Avai lable isosorbid e mononitra te ER 120 mg tablet,ex tended release 24 hr Take 1 tablet every day by oral route. 01/01 completed Not Available Not Available Not Available isosorbid e mononitra te ER 60 mg tablet,ex tended release 24 hr Take 1 tablet every day by oral route for 90 days. 2024 active Decrease d in the hosp Not Available Not Available Not Available lorazepam 0.5 mg tablet TAKE 1 TABLET BY MOUTH ONCE DAILY NEEDED FOR 30 DAYS active Not Available Not Available No t Available baclofen 10 mg tablet TAKE 1 TABLET BY MOUTH ONCE DAILY FOR 30 DAYS 08/26 completed Not Available Not Available Not Available amlodipin e 10 mg tablet TAKE 1 TABLET BY MOUTH EVERY DAY AT BEDTIME FOR 90 DAYS 08/26 completed Not Available Not Available Not Available pantopraz ole 40 mg tablet,de layed release Take 1 tablet by mouth once daily 2024 active Not Available Not Available Not Avai lable pyridosti gmine bromide 60 mg tablet TAKE 1 TABLET BY MOUTH THREE TIMES DAILY FOR 90 DAYS 08/26 completed Not Available Not Available Not Available methylpre dnisolone 4 mg tablets in a dose pack 08/26 completed Not Available Not Available Not Available metformin ER 500 mg tablet,ex tended release 24 hr Take 2 tablets every day by oral route. 2024 active Not Available Not Available Not Avai lable memantine 10 mg tablet Take 1 tablet by mouth twice daily 2024 active Not Available Not Available Not Avai lable nitrofura ntoin monohydra te/macroc rystals 100 mg capsule TAKE 1 CAPSULE BY MOUTH TWICE DAILY FOR 7 DAYS MUST ADMINIST ER WITH MEAL/YASMEIN D 08/26 completed Not Available Not Available Not Available arturo garcia 08/26 completed Chavez foreman;Guilherme rded Status: Recorded on: 08/30/19 12 9:00AM;U ser: djeffrey ;Indicat ion: - (-5);Pre scriptio n Date: 10/05/19 12 21:57:04 ;[facility] Id: [id number];[facility]que [facility] on Id: -5;Presc ribed: Outside Prescrib ed Medicati on Not Available Not Available Not Available calcium 08/26 completed calcium; Recorded Status: Recorded on: 08/30/19 12 9:00AM;U ser: djeffrey ;Indicat ion: - (-5);Pre scriptio n Date: 10/05/19 12 21:57:04 ;[facility] Id: [id number];[facility] Id: -5;Presc ribed: Outside Prescrib ed Medicati on Not Available Not Available Not Available Mestinon 08/26 completed Mestinon ;Recorde d Status: Recorded on: 08/30/19 12 9:00AM;U ser: djeffrey ;Indicat ion: - (-5);Pre scriptio n Date: 10/05/19 12 21:57:04 ;[facility] Medic[facility] on Id: [id number];[facility] on Id: -5;Presc ribed: Outside Prescrib ed Medicati on Not Available Not Available Not Available omeprazol e 08/26 completed Omeprazo le;Recor ded Status: Recorded on: 08/30/19 12 9:00AM;U ser: djeffrey ;Indicat ion: - (-5);Pre scriptio n Date: 10/05/19 12 21:57:04 ;[facility] on Id: [id number];[facility] ique [facility] on Id: -5;Presc ribed: Outside Prescrib ed Medicati on Not Available Not Available Not Available Fish Oil 08/26 completed fish oil;Guilherme rded Status: Recorded on: 08/30/19 12 9:00AM;U ser: djeffrey ;Indicat ion: - (-5);Pre scriptio n Date: 10/05/19 12 21:57:04 ;[facility] Medic[facility] on Id: [id number];Un ique Medicati on Id: -5;Presc ribed: Outside Prescrib ed Medicati on Not Available Not Available Not Available atenolol 08/26 completed Atenolol ;Recorde d Status: Recorded on: 08/30/19 12 9:00AM;U ser: djeffrey ;Indicat ion: - (-5);Pre scriptio n Date: 10/05/19 12 21:57:04 ;[facility] on Id: [id number];[facility] ique Medicati on Id: -5;Presc ribed: Outside Prescrib ed Medicati on Not Available Not Available Not Available potassium 08/26 completed marjorie srivastava;Record ed Status: Recorded on: 08/30/19 12 9:00AM;U ser: djeffrey ;Indicat ion: - (-5);Pre scriptio n Date: 10/05/19 12 21:57:04 ;[facility] Medicati on Id: [id number];[facility] ique Medicati on Id: -5;Presc ribed: Outside Prescrib ed Medicati on Not Available Not Available Not Available Ultram 08/26 completed Ultram;R ecorded Status: Recorded on: 08/30/19 12 9:00AM;U ser: djeffrey ;Indicat ion: - (-5);Pre scriptio n Date: 10/05/19 12 21:57:04 ;[facility]ica [facility] Medic[facility] on Id: [id number];Un ique Medicati on Id: -5;Presc ribed: Outside Prescrib ed Medicati on Not Available Not Available Not Available Flexeril 08/26 completed Flexeril ;Recorde d Status: Recorded on: 08/30/19 12 9:00AM;U ser: djeffrey ;Indicat ion: - (-5);Pre scriptio n Date: 10/05/19 12 21:57:04 ;Clinica l Medicati on Id: [id number];Un ique Medicati on Id: -5;Presc ribed: Outside Prescrib ed Medicati on Not Available Not Available Not Available Epidrin 08/26 completed Epidrin; Recorded Status: Recorded on: 08/30/19 12 9:00AM;U ser: djeffrey ;Indicat ion: - (-5);Pre scriptio n Date: 10/05/19 12 21:57:04 ;[facility]inica l Medicati on Id: [id number];Un ique Medicati on Id: -5;Presc ribed: Outside Prescrib ed Medicati on Not Available Not Available Not Available Lovaza 08/26 completed Moreno ecorded Status: Recorded on: 08/30/19 12 9:00AM;U ser: djeffrey ;Indicat ion: - (-5);Pre scriptio n Date: 10/05/19 12 21:57:04 ;[facility]ica l Medicati on Id: [id number];Un ique Medicati on Id: -5;Presc ribed: Outside Prescrib ed Medicati on Not Available Not Available Not Available Apidra SoloStar U-100 Insulin 08/26 completed Apidrsemaj rosasar ;Radhae d Status: Recorded on: 08/30/19 12 9:00AM;U ser: djeffrey ;Indicat ion: - (-5);Pre scriptio n Date: 10/05/19 12 21:57:04 ;Clinica l Medicati on Id: [id number];Un ique Medicati on Id: -5;Presc ribed: Outside Prescrib ed Medicati on Not Available Not Available Not Available Xifaxan 550 mg tablet TAKE 1 TABLET BY MOUTH THREE TIMES DAILY 08/26 completed Not Available Not Available Not Available donepezil 23 mg tablet Take 1 tablet every day by oral route for 90 days. 2024 active Not Available Not Available Not Avai lable Vitals Date Recorded Heart rate Respiratory rate Body temperature Body weight Oxygen saturation Oxygen saturation in Arterial blood by Pulse oximetry Body mass index (BMI) Body height Systolic And Diastolic Provider Name and Address Organization Details Last Updated DateTime 5 85 /min 18 /min 97.5 [degF] 491719. 51 g 96 % 96 % 38.1 kg/m2 162.56 cm 158/84 mm[Hg] Zoe CARR - [facility] 5 11:04:34 Date Recorded Body height Heart rate Respiratory rate Body temperature Body mass index (BMI) Body weight Oxygen saturation Oxygen saturation in Arterial blood by Pulse oximetry Systolic And Diastolic Provider Name and Address Organization Details Last Updated DateTime 5 162.56 cm 92 /min 12 /min 97.1 [degF] 37.3 kg/m2 26088.2 4 g 98 % 98 % 132/80 mm[Hg] Salud Phipps [facility] 12:45:32 Social History Question Answer Notes LastModified by Organizat ion Details LastModified Time In The 14 Days Before Symptom Onset, Have You Had Close Contact With A Laboratory-confirmed COVID-19 While That Case Was Ill? No Information not available 01/01/2025 In The 14 Days Before Symptom Onset, Have You Had Close Contact With A Person Who Is Under Investigation For COVID-19 While That Person Was Ill? No Information not available 01/01/2025 Sex: Unknown Functional Status None recorded. Mental Status None recorded. Family History Nothing Reported. Medical History No medical history recorded. Gynecological HistoryNo gynecological history recorded. Obstetrics History GPAL:G 0 P 0 0 0 0 Past Encounters Encounter ID Performer Location Encounter Start Date Encounter Closed Date Diagnosis/Indication Diagnosis SNOMED-CT Code Diagnosis ICD10 Code Diagnosis IMO Codes Diagnosis Note [id number] [address] [place] [address] 08/26/2024 10:57:18 08/26/2024 12:25:19 Myasthenia gravis without exacerbation 5054035041 9103 G70.00 [id number] stable, no changes. Has appt with mingo Martinez in [place] for further management . Chronic di astolic heart failure 929931451 I50.32 [id number] Stable, pt has Alzheimer' s and hard to evaluate, but has not reported any CP, SOB, palpitatio ns, dizziness. BLE edema is controlled , Continue current tx plan. Alzheimer's disease 2692 9004 G30.9 F02.80 [id number] Stable, continues current tx plan, lives with her daughter, and she is here for visit today and reports pt is doing well. has appt with mingo Martinez to further manage her care Morbid obesity 458476824 E66.01 [id number] has gained weight, diet discussed, daughter reports hard to manage related to her alzheimers and she eats when she will eat. Hyperglyce lydia due to type 1 diabetes mellitus 0267267875 85475 E10.65 [id number] Draw labs today for review, continue current tx plan. Pt has gained weight, daughter is her caregiver and reports she eats what she will eat secondary to her Alzheimer' s disease and what mood she is in. Diabetic foot exam today, thickened brittle toenails, otherwise stable. Benign ess ential hypertension 0116913 I10 BP stable, continue current tx plan. Pure hypercholesterolemia 984106720 E78.00 FLP stable, continue current statin therapy and pt has gained weight, due to alzheimer' s her diet is irregular and mostly just what is desired at the time she will eat. History of cerebrovascular accident 513493859 Z86.73 [id number] Stable, continues current tx plan, daughter is caregiver, Alzheimer' s and h/o CVA pt is doing well per her daughter reports. Vitamin D deficiency 347 77117 E55.9 1053472 draw labs today for review, continue suppplemen ts. Gastroesop hageal reflux disease 928555539 K21.9 [id number] Controlled on current tx plan. [id number] [address] [place] [address] 12/19/2024 18:06:21 03/03/2025 17:31:[id number] [place] [address] 12/27/2024 16:14:51 01/03/2025 09:56:[id number] [facility] [place] [address] 01/01/2025 11:45:03 01/01/2025 14:13:55 Acute pancreatitis 954558472 K85.90 [id number] repeat amylase, lipase and CMP today, Pt continues clear liquids, and daughter reports stable, but feels her abdominal pain is not well controlled on tramadol 50mg 1 half a tab PRN, advise she use 1 tab PRN. Monitor patient. referral to GI for evaluation and treatment of abnormal CT abd pelvis see Abnormal CT abd/pelvis plan below. repeat labs reviewed. amylase-no rmal, lipase 86-much improved. CMP stable. CT of abdo men abnormal 1849266781 [address]460057 R93.[id number] abd/pelvis w/contrast 12/14/24- impression : findings above related to acute interstiti al pancreatit is. No focal fluid collection s to suggest pancreatic pseudocyst at this time. There is low-densit y lesions of the pancreatic tail. Concerning for side branch IPMN's. Follow up MRCP can be performed. Correlate with urinalysis to exclude cystitis. Lingular nodular opacities reflecting atelectasi s versus infiltrate s. MRCP 12/16/24- diffuse edema involving the pancreas compatible with known pancreatit is. Cystic lobulated lesions involving the pancreatic tail most likely represent side branch IPMN's. This is difficult to further evaluate due to motion. Recommend 6 to 12 month follow up with contrast enhanced CT abd/pelvis . Prior cholecyste ctomy. Fatty liver. referral to gastroente rology for further workup of abnormal CT abd/pelvis and MRCP. Last colonoscop y [address] Troy Villa, diverticul a, otherwise normal colon, repeat 10 years. EGD 2018, esophagiti s w/o bleeding noted. Pt has myasthenia gravis. Benign ess ential hypertension 0781963 I10 BP stable, continue current tx plan. History of cerebrovascular accident 735314083 Z86.73 [id number] Stable, continues current tx plan, daughter is caregiver, Alzheimer' s and h/o CVA pt is doing well per her daughter reports. Dr. Ramsay, neurology [facility] following. Dementia 58748637 F03.90 [id number] advancing senile dementia, daughter continues to care for patient. Dr. Ramsay, neurology [facility] following. Myasthenia gravis 418086 [address] G70.[id number] Ramsay, neurology [facility] following. Health Concerns Section Related Observation LastModified by Organization Detai ls LastModified Time None Recorded Concern Status LastModified by Organization Details LastModified Time None Recorded Advance Directives Directive None Recorded Payers Insurance Date Sequence Insurance Name Policy Number Policy Balderas Covered Member ID Balderas Member ID Guarantor Name 12/30/2024 1 [place] Raven P Ebarb [id number] Raven P Ebarb 08/26/2024 2 [employer]-[place] [facility] Raven Anderson Ebarb [id number] Raven Anderson Ebarb Notes Date Note Type Note Provider Name and Address Organization Details Recorded Time 5 text/html Pt. here for f/u and lab draw today. Pt. is also needing a refill on all of her meds. pharmacy would not fill because they were still in Dr. Mcguire's name. KATHE ROGERS [address] [place], [address], [facility] [place] [place] [facility] 10/20/2024 23:40:21 5 text/html Transition Care ManagementReported by CaregiverHPIFor timing, caregiver reportsdate of discharge: (12/17/2024)anddate interactive contact was made: (12/19/2024). For facility, caregiver reportsdischarged to: (home)anddischarged from: other ([facility]). For current caregivers, caregiver reportsselfandfamily member. For functional status, caregiver reportsno difficulty following discharge instructions,taking medications as prescribed, andfollowing recommended activity level. For follow up, caregiver reportsscheduled yesandprimary care provider, date: (wendy rogers aprn 12/24 @ 9:30). For phone call completed by, caregiver reports: (anju weslh rn). For documentation by children's zoo caretaker/child adolescent care and reviewed by, caregiver reports: (anju welsh rn/wendy rogers aprn).[place] [facility] [place]. Presented with c/o CP with abd pain. CT showed interstitial pancreatitis. Concern for possible lesion in pancreatic tail with concern for IPMN which was confirmed by MRCP. Recommended repeat CT in 6-12 months. Trop neg; Lipase 10,107 Treated by making her NPO, pain control and IVF s . Suspected pancreatitis could be drug induced as she takes several meds that could contribute to pancreatitis. A1C 6.0 Condition improved, diet advance. Discharged 12/17. Lipase 2160 Furosemide changed from 40 mg daily to prn, Glimepiride from 2 mg to 1 mg daily, Metformin discontinued. Tramadol 50 mg take tab q6h prn #14 Appt Wendy Rogers APRN 12/24. Spoke to pt s daughter, Hiral. Reports she is doing good. She has been on liquid diet advanced to soft. She did make the med changes. Monitoring weight. Aware of follow up. Instructed to bring meds and any readings from home. Anju Welsh RN Composition Floor Setter KATHE ROGERS [address] [place], [address], [place] - [facility] 01/03/2025 09:54:45 5 text/html Transition Care ManagementReported by CaregiverHPIFor timing, caregiver reportsdate of discharge: (12/24/2024)anddate interactive contact was made: (12/26/2024). For facility, caregiver reportsdischarged to: (home)anddischarged from: other ([facility] For current caregivers, caregiver reportsselfandfamily member. For functional status, caregiver reportsno difficulty following discharge instructions,taking medications as prescribed, andfollowing recommended activity level. For follow up, caregiver reportsscheduled yesandprimary care provider, date: (wendy rogers aprn 01/01 @ 11:00). For phone call completed by, caregiver reports: (anju welsh rn). For documentation by children's zoo caretaker/child adolescent care and reviewed by, caregiver reports: (anju welsh rn/wendy rogers aprn).[place] [facility] [place] Presented to ER with c/o abdominal pain and chest discomfort. Troponin T slightly elevated 11. Lipase 10,00 alluding to pancreatitis. She has had her GB out and does not drink but is on many meds that could lead to pancreatitis such as atorvastatin, glimepiride, metformin, memantine, donepezil, and Seroquel. Treated by being made NPO, labs monitored and showed improvement. Lipase 82 on dc. Able to tolerate an advancing diet. CT A/P showed changes in pancreatitis with several cystic lesions in the tail of the pancreas. 6-[address] with contrast recommended. Possible mild RLL pneumonia. 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 Discharged 12/24. Med: Isosorbide decreased to 60 mg daily. Appointment made with Wendy Rogers APRN 12/31. Spoke to daughter Hiral who she lives with. Reports she is better but weak. Aware of follow up she had to change appt to 01/01. Instructed to bring meds or list to follow up along with any b/p readings. Anju Welsh RN Composition Floor Setter KATHE ROGERS [facility] [place], [address], [place] [facility] 01/03/2025 09:56:45 5 text/html Transition Care ManagementReported by CaregiverHPIFor timing, caregiver reportsdate of discharge: (12/24/2024)anddate interactive contact was made: (12/26/2024). For facility, caregiver reportsdischarged to: (home)anddischarged from: other ([facility]). For current caregivers, caregiver reportsselfandfamily member. For functional status, caregiver reportsno difficulty following discharge instructions,taking medications as prescribed, andfollowing recommended activity level. For follow up, caregiver reportsscheduled yesandprimary care provider, date: (wendy rogers aprn 01/01 @ 11:00). For phone call completed by, caregiver reports: (anju weslh rn). For documentation by children's zoo caretaker/child adolescent care and reviewed by, caregiver reports: (anju welsh rn/wendy rogers aprn).[place] [facility] [place]. Presented to ER with c/o abdominal pain and chest discomfort. Troponin T slightly elevated 11. Lipase 10,00 alluding to pancreatitis. She has had her GB out and does not drink but is on many meds that could lead to pancreatitis such as atorvastatin, glimepiride, metformin, memantine, donepezil, and Seroquel. Treated by being made NPO, labs monitored and showed improvement. Lipase 82 on dc. Able to tolerate an advancing diet. CT A/P showed changes in pancreatitis with several cystic lesions in the tail of the pancreas. 6-[address] with contrast recommended. Possible mild RLL pneumonia. 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 Discharged 12/24. Med: Isosorbide decreased to 60 mg daily. Appointment made with Wendy Rogers APRN 12/31. Spoke to daughter Hiral who she lives with. Reports she is better but weak. Aware of follow up she had to change appt to 01/01. Instructed to bring meds or list to follow up along with any b/p readings. Anju Welsh, RN Composition Floor Setter Pt. here for hospital from admission to [facility] in [facility], on 12/22/24 for persistent pain from pancreatitis. She had previously been admitted 12/14/24 and diagnosed with pancreatitis, discharged to home on 12/17/24, and readmitted with persistent pain on 12/22/24. See below HPI notes. Today, Pt. complains of intermittent abdominal pain, but difficult to assess due to dementia Dx. Patient daughter reports dementia advanced stage, makes it hard to care for her with pancreatitis, diet changes. Pt daughter is concerned regarding recent abnormal CT scan, and requests referral to GI for workup. KATHE ROGERS [facility] [place], [address], [place] - [facility] 01/05/2025 21:04:45 OBGyn Episode No OBEpisode recorded.
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
--- OUTSIDE RECORDS SUMMARY | 2025-03-11 13:59 | XMS_ITS | Patient Health Record ---
Author Organization [facility] Address [address] [place] [address] Care Team Providers Care Project Scheduler Name Role Phone Ramirez Santana Primary Care Provider [phone] Allergies Allergen (clinical drug ingredient) Drug/Non [...] 40 MG Oral Tablet 12/25/2017 Active Pyridostigmine [place]ford 60 MG Oral Tablet Pyridostigmine [place] 60 MG Oral Tablet 12/25/2017 Active 24 HR Metoprolol Tartrate 25 MG Extended Release Tablet 24 HR Metoprolol Tartrate 25 MG Extended Release Tablet 12/25/2017 Active Potassium Chloride 1.33 MEQ Oral Tablet Potassium Chloride 1.33 MEQ Oral Tablet 12/25/2017 Active Immunizations Vaccine Route Administration Date Status Comme nts Influenza (whole), CPT 31099 Inactive Unknown 02/22/2018 Administered Social History Social History Additional Details Category Social Info Options Details zzMigrated Social History Migrated Social History Smoking Status:Never smoked tobacco (finding) Plan Of Treatment No Information
--- OUTSIDE RECORDS SUMMARY | 2025-03-11 13:59 | XMS_ITS | Clinical Summary ---
Author Organization [facility] Address [address] 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
--- OUTSIDE RECORDS SUMMARY | 2025-03-11 13:59 | XMS_ITS | Encounter Summary ---
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 Name Role Phone Unavailable Primary Care Provider Unavailabl e Encounter Details Date Type Department Care Team (Latest Contact Info) Description 09/26/2001 Outpatient Historical [facility] Medicine [place] [address] [facility] [address] [place] [address] Bienvenido Carbajal MD SCREENING MAL NEOP-COLON (Primary Dx) Social History Tobacco Use Types Packs/Day Years Used Date Smoking Tobacco: Never Assessed Comments Unknown Sex and Gender Information Value Date Recorded Sex Assigned at Not on file 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
--- NOTE | 2025-03-11 14:14 | XR_ITS ---
WS: [email or web address] Exam: XR thoracic spine 3V* [id number] Date/Time of Exam: 03/11/2025 2:14 PM Reason For Exam: trauma No fracture or malalignment. There is spondylosis and degenerative disc change at all levels. Increased kyphosis. Paraspinal soft tissues are unremarkable. XR/XR thoracic spine 3V* 95243 IMPRESSION: 1. Moderate DJD and increased kyphosis. No fracture.
--- NOTE | 2025-03-11 14:14 | XR_ITS ---
WS: [email or web address] Exam: XR lumbar spine 2-3V* [id number] Date/Time of Exam: 03/11/2025 2:14 PM Reason For Exam: trauma DLP: Comparison 09/27/2013. No acute fracture. 5 mm degenerative anterolisthesis of L4 on L5 noted. Disc degeneration at L1-2. Mild spondylosis. Marked osteopenia. Moderate levoscoliosis. XR/XR lumbar spine 2-3V* 18397 IMPRESSION: 1. No acute fracture. 2. 5 mm degenerative anterolisthesis of L4 on L5. Degenerative changes and pron ounced osteopenia.
--- NOTE | 2025-03-11 14:17 | XR_ITS ---
WS: [email or web address] Exam: XR ribs RT mn 3V w CXR1V 50185 Date/Time of Exam: 03/11/2025 2:17 PM Reason For Exam: trauma Compared to chest radiograph 02/11/2025. No acute right rib fracture or pneumothorax. No pulmonary or pleural reactive changes. The lungs are bilaterally clear. Heart size top limits normal. Moderate DJD of the RIGHT shoulder. No pleural effusion. XR/XR ribs RT mn 3V w CXR1V 46488 IMPRESSION: 1. No acute RIGHT rib fracture. 2. No acute cardiopulmonary process.
--- NOTE | 2025-03-11 14:50 | W.ED.FALL ---
HPI - Fall General: Chief Complaint: Fall Stated Complaint: Fall, RT flank Pain Time Seen by Provider: 03/11/25 13:55 History of Present Illness: 71-year-old female who presents emergency room after a fall complaining of right flank pain. Patient has dementia she is cared for by her daughter who observed her while in the bathtub trying to get out of the bathtub she slipped and fell on her right flank. She not strike her head there is no loss consciousness when he first arrived daughter was not at the bedside. Patient states her arms hurt but could not localize them for me. Did not get any significant history from her. Associated symptoms-after fall: Denies abdominal pain, chest pain or neck pain Related Data Home Medications ?Medication ?Instructions ?Recorded ?Confirmed acetaminophen 650 mg See Rx Instructions .Route 12/15/24 02/11/25 tablet,extended release (Tylenol .COMPLEX PRN Pain Arthritis Pain) [id number] ac 400 1 tab PO DAILY 12/15/24 02/11/25 mcg-calcium carb 500 mg-vit K1 20 mcg tablet (Women's 50 Plus Multivitamin) potassium chloride 10 mEq 10 meq PO QAM 12/15/24 02/11/25 tablet,extended release donepezil 23 mg tablet 23 mg PO BEDTIME 12/17/24 02/11/25 atorvastatin 20 mg tablet 20 mg PO QPM 12/22/24 02/11/25 glimepiride 2 mg tablet 2 mg PO QAM 12/22/24 02/11/25 metformin 500 mg tablet,extended 1,000 mg PO DAILY 12/22/24 02/11/25 release 24 hr clopidogrel 75 mg tablet (Plavix) 75 mg PO QAM 02/11/25 02/11/25 furosemide 40 mg tablet 40 mg PO QAM PRN swelling or 02/11/25 02/11/25 weight gain of 5 lbs pantoprazole 40 mg tablet,delayed 40 mg PO QAM 02/11/25 02/11/25 release quetiapine 25 mg tablet (Seroquel) See Rx Instructions .Route .COMPLEX 02/11/25 02/11/25 Previous Rx's ?Medication ?Instructions ?Recorded memantine 10 mg tablet 10 mg PO BID #180 tabs 01/09/24 tramadol 50 mg tablet 25 mg (1/2 x 50 mg) PO Q6H PRN 12/17/24 pain #14 tabs isosorbide mononitrate 60 mg 60 mg PO DAILY #30 tabs 12/24/24 tablet,extended release 24 hr nitrofurantoin 100 mg PO BID 7 days #14 caps 03/11/25 monohydrate/macrocrystals 100 mg capsule (Macrobid) Allergies Allergy/AdvReac Type Severity Reaction Status Date / Time amoxicillin Allergy ALGY-Hives Verified 03/11/25 14:02 aspirin (From Aggrenox) Allergy Unknown Verified 03/11/25 14:02 Cephalosporins Allergy Unknown Verified 03/11/25 14:02 dipyridamole (From Aggrenox) Allergy Unknown Verified 03/11/25 14:02 glimepiride (From Amaryl) Allergy Unknown Verified 03/11/25 14:02 levofloxacin (From Levaquin) Allergy Unknown Verified 03/11/25 14:02 pregabalin (From Lyrica) Allergy Unknown Verified 03/11/25 14:02 procaine (From Novocain) Allergy Unknown Verified 03/11/25 14:02 sumatriptan (From Imitrex) Allergy ALGY-Rash Verified 03/11/25 14:02 Review of Systems Const: Denies: fever(s) or chills Card: Denies: chest pain Resp: Denies: dyspnea GI: Denies: abdominal pain : Denies: dysuria, urinary frequency or urinary urgency Musc: Denies: neck pain or back pain Skin/Breast: Denies: rash PFSH ED PFSH: Medical History Obesity (BMI 30-39.9) SOB (shortness of breath) Old cerebrovascular accident (CVA) without late effect Dyslipidemia Benign essential hypertension with target blood pressure below 140/90 Abdominal pain Rotator cuff arthropathy of right shoulder Tubal infertility in female Surgical History History of carpal tunnel surgery H/O thyroidectomy H/O: hysterectomy H/O knee surgery History of cholecystectomy H/O eye surgery H/O mastoidectomy History of appendectomy H/O mastectomy H/O colonoscopy Family History Sister Cancer Mother Cancer Daughter Cancer Denies family history of Diabetes CAD (coronary artery disease) Clotting disorder Dementia Chronic kidney disease (CKD) Suicide Anesthesia complication Bleeding disorder Lung disease Stroke Social History Smoking and tobacco/nicotine status: never used tobacco/nicotine Alcohol intake: former Substance/Drug Use: never Additional social history: Patient does not use any drugs alcohol, illicits or smoke. CODE STATUS is DNR as discussed with patient's daughter. This is on 12/15/2024 with Darryl Shah MD patient's past employment included working for [employer] in the [employer] Physical Exam Const: COMMON NORMALS: no acute distress GENERAL APPEARANCE: cooperative and comfortable ORIENTATION/CONSCIOUSNESS: Yes awake HENMT: COMMON NORMALS: normocephalic, atraumatic and hearing grossly normal bilaterally HEAD & SCALP: normocephalic and atraumatic Resp: COMMON NORMALS: normal respiratory effort, No retractions, No use of accessory muscles and clear to auscultation bilaterally AUSCULTATION: clear to auscultation bilaterally Cardio: COMMON NORMALS: regular rate, regular rhythm and No murmurs present (Cardio) RATE: regular rate RHYTHM: regular rhythm GI: COMMON NORMALS: Soft to palpation and No hepatosplenomegaly present AUSCULTATION: Yes normoactive bowel sounds PALPATION: Yes Soft to palpation, No Tenderness to palpation present (GI), No Guarding due to palpation present (GI) and Yes No hepatosplenomegaly present Extremity: COMMON NORMALS: normal to inspection, capillary refill normal, no clubbing, cyanosis or edema, no calf tenderness and no pedal edema Skin: COMMON NORMALS: no rashes or lesions noted GENERAL SKIN EXAM: no rashes or lesions noted Course Vital Signs: Vital signs: Vital Signs Temperature 97.5 F L 03/11/25 13:56 Pulse Rate 58 L 03/11/25 13:56 Respiratory Rate 16 03/11/25 13:56 Blood Pressure 161/91 03/11/25 13:56 Pulse Oximetry 98 03/11/25 13:56 MDM - Fall Medical Decision Making Patient initially evaluated there is no family at the bedside they did arrive later. They had witnessed a fall in the bathtub. There is no loss consciousness no sign of injury to her head. Family confirms. She x-rays done to rule out rib fracture and fracture thoracic spine. X-rays reviewed no acute thoracic compression fractures no rib fractures chest x-ray normal. UA shows cystitis we will treat for cystitis. Patient has multiple drug allergies listed we will put her on nitrofurantoin. Discussed with family may be worthwhile to review these with the primary care physician as she has no listed side effects to most of the medicine she claims to have an allergy to however claims allergies to almost all drug classes. Can use Tylenol ibuprofen for pain. Medical Records I reviewed the patient's medical records. Lab Data I reviewed the patient's lab results. 03/11/25 14:54 03/11/25 14:54 Radiology Impressions Lumbar Spine X-Ray 03/11/25 14:14 IMPRESSION: 1. No acute fracture. 2. 5 mm degenerative anterolisthesis of L4 on L5. Degenerative changes and pronounced osteopenia. Thoracic Spine X-Ray 03/11/25 14:14 IMPRESSION: 1. Moderate DJD and increased kyphosis. No fracture. Ribs X-Ray 03/11/25 14:17 IMPRESSION: 1. No acute RIGHT rib fracture. 2. No acute cardiopulmonary process. Laboratory Results WBC 9.23 10^3/uL (3.29-11.43) 03/11/25 14:54 RBC 4.75 10^6/uL (3.85-5.65) 03/11/25 14:54 Hgb 13.20 g/dL (11.27-16.99) 03/11/25 14:54 Hct 41.3 % (36-47) 03/11/25 14:54 MCV 86.9 fl (85-98) 03/11/25 14:54 MCH 27.8 pg (27-33) 03/11/25 14:54 MCHC 32.0 g/dL (30-55) 03/11/25 14:54 RDW 14.2 % (12.1-15.1) 03/11/25 14:54 Plt Count 187 10^3/cmm (157-399) 03/11/25 14:54 MPV 10.0 fL (7.4-10.4) 03/11/25 14:54 Neut % (Auto) 82.9 % 03/11/25 14:54 Lymph % (Auto) 11.1 % 03/11/25 14:54 Jenkins % (Auto) 5.2 % 03/11/25 14:54 Eos % (Auto) 0.2 % 03/11/25 14:54 Baso % (Auto) 0.3 % 03/11/25 14:54 Neut # (Auto) 7.65 10^3/uL (1.8-7.7) 03/11/25 14:54 Lymph # (Auto) 1.0 10^3/uL (0.8-4.8) 03/11/25 14:54 Jenkins # (Auto) 0.5 10^3/uL (0.2-0.9) 03/11/25 14:54 Eos # (Auto) 0.0 10^3/uL (0.0-0.8) 03/11/25 14:54 Baso # (Auto) 0.0 10^3/uL (0.0-0.1) 03/11/25 14:54 Nucleated RBC % (auto) 0 % 03/11/25 14:54 Nucleated RBCs # 0.0 /100WBC 03/11/25 14:54 Sodium 144 mmol/L (136-145) 03/11/25 14:54 Potassium 3.6 mmol/L (3.5-5.1) 03/11/25 14:54 Chloride 104 mmol/L (98-107) 03/11/25 14:54 Carbon Dioxide 23 mmol/L (22-29) 03/11/25 14:54 Anion Gap 20.6 (5-19) H 03/11/25 14:54 BUN 11 mg/dL (8-23) 03/11/25 14:54 Creatinine 0.7 mg/dL (0.5-0.9) 03/11/25 14:54 GFR Calculation Not Reportable 03/11/25 14:54 Glucose 156 mg/dL (65-115) H 03/11/25 14:54 Calculated Osmolality 301 mOsm/kg (285-295) H 03/11/25 14:54 Calcium 9.2 mg/dL (8.5-10.5) 03/11/25 14:54 Total Bilirubin 0.7 mg/dL (0.15-1.2) 03/11/25 14:54 AST 50 U/L (0-32) H 03/11/25 14:54 ALT 40 U/L (0-33) H 03/11/25 14:54 Alkaline Phosphatase 89 U/L (35-105) 03/11/25 14:54 Total Protein 6.9 g/dL (6.6-8.7) 03/11/25 14:54 Albumin 4.1 g/dL (3.5-5.2) 03/11/25 14:54 Globulin 2.8 g/dL (1.3-4.6) 03/11/25 14:54 Urine Color Yellow (Yellow) 03/11/25 14:28 Urine Appearance Clear (CLEAR) 03/11/25 14:28 Urine pH 5.5 (5-7) 03/11/25 14:28 Ur Specific Lutz 1.014 (1.005-1.030) 03/11/25 14:28 Urine Protein 1+ (Negative) A 03/11/25 14:28 Urine Glucose (UA) Negative (Normal) 03/11/25 14:28 Urine Ketones Negative (Negative) 03/11/25 14:28 Urine Blood Trace (Negative) A 03/11/25 14:28 Urine Nitrate Positive (Negative) A 03/11/25 14:28 Urine Bilirubin Negative (Negative) 03/11/25 14:28 Urine Urobilinogen 0.2 mg/dL (Negative) 03/11/25 14:28 Ur Leukocyte Esterase Negative (Negative) 03/11/25 14:28 Urine RBC 0-2 /hpf (0-2) 03/11/25 14:28 Urine WBC 6-10 /hpf (0-5) 03/11/25 14:28 Ur Squamous Epith Cells 0-5 /hpf (0-5) 03/11/25 14:28 Amorphous Sediment Not Reportable 03/11/25 14:28 Urine Bacteria 4+ /hpf (NONE) H 03/11/25 14:28 Hyaline Casts 4.52 /lpf 03/11/25 14:28 All radiology interpretation(s) finalized by discharge Discharge Plan Discharge Patient Disposition: Home Clinical Impression: Cystitis Fall Qualifiers: Encounter type: initial encounter Qualified Code(s): W19.XXXA - Unspecified fall, initial encounter Condition: Stable Prescriptions: New nitrofurantoin monohyd/m-cryst [Macrobid] 100 mg capsule 100 mg PO BID 7 Days Qty: 14 0RF Rx Instructions: must administer with a meal/food No Action memantine 10 mg tablet 10 mg PO BID Qty: 180 3RF potassium chloride 10 mEq tablet extended release 10 meq PO QAM acetaminophen [Tylenol Arthritis Pain] 650 mg Tablet Extended Release See Rx Instructions .ROUTE .COMPLEX PRN (Reason: Pain) Rx Instructions: Take 2 tablets by mouth in the am and 1 tablet at night. Women's 50 Plus Multivitamin 400 mcg-500 mg calcium-20 mcg Tablet 1 tab PO DAILY donepezil 23 mg tablet 23 mg PO BEDTIME tramadol 50 mg tablet 25 mg PO Q6H PRN (Reason: pain) Qty: 14 0RF atorvastatin 20 mg tablet 20 mg PO QPM metformin 500 mg tablet extended release 24 hr 1,000 mg PO DAILY glimepiride 2 mg tablet 2 mg PO QAM isosorbide mononitrate 60 mg Tablet Extended Release 24 Hr 60 mg PO DAILY Qty: 30 0RF quetiapine [Seroquel] 25 mg tablet See Rx Instructions .ROUTE .COMPLEX Rx Instructions: Take 1 tablet by mouth at bedtime and every 6 hours as needed for agitation furosemide 40 mg tablet 40 mg PO QAM PRN (Reason: swelling or weight gain of 5 lbs) clopidogrel [Plavix] 75 mg tablet 75 mg PO QAM pantoprazole 40 mg tablet,delayed release (DR/EC) 40 mg PO QAM Discharge Orders: Discharge ED (Routine); Ordered 03/11/25 Ordered By: Silvestre Garcia Discharge Diet: Usual diet Discharge Activity: Increase activity as tolerated Patient Instructions: Opioid Safety, Pain Management, Patient Portal & [facility] Instructions Activity Restrictions/Additional Instructions: Thank you for choosing [facility] for your healthcare needs today. It is very important that you follow up as instructed or that you return to the Emergency Department should you have concerns or if your condition changes or worsens in any way. Emergency department visits are focused on emergent conditions, in some cases you may require further evaluation on an outpatient basis. You were seen in the emergency room after a fall. X-rays not show any acute fractures you were noted to have a bladder infection for which you were given an oral antibiotic. Follow-up with your primary care doctor. (Please note that included in your discharge packet is information concerning opioid safety and pain management. This information is given to all patients were discharged from the ER regardless of their discharge diagnosis or the medicines they usually take or are prescribed.) Print Language: Swedish Coding Level of Care Code ED [employer] Keeper for Sherie Arboleda
[2025-03-11 14:59] LABS: Glucose Urine UA Negative (Normal); Nitrate Urine Positive (Negative); Specific Gravity, Urine 1.014 (1.005-1.030)
[2025-03-11 15:04] LABS: Add Urine Microscopic? YES
[2025-03-11 15:05] LABS: Hematocrit 41.3 % (36-47); Hemoglobin 13.20 g/dL (11.27-16.99); Mean Corpuscular HGB Conc 32.0 g/dL (30-55); Mean Corpuscular Hemoglobin 27.8 pg (27-33); Mean Corpuscular Volume 86.9 fl (85-98); Nucleated Red Blood Cells % 0 %; Platelet Count 187 10^3/cmm (157-399); Red Blood Count 4.75 10^6/uL (3.85-5.65); White Blood Count 9.23 10^3/uL (3.29-11.43)
[2025-03-11 15:24] LABS: Alanine Aminotransferase 40 U/L (0-33); Albumin Level 4.1 g/dL (3.5-5.2); Alkaline Phosphatase 89 U/L (35-105); Anion Gap 20.6 (5-19); Aspartate Amino Transferase 50 U/L (0-32); Blood Urea Nitrogen 11 mg/dL (8-23); Calcium 9.2 mg/dL (8.5-10.5); Carbon Dioxide 23 mmol/L (22-29); Chloride 104 mmol/L (98-107); Creatinine Clr Calc Pharmacy 66.6490; Globulin 2.8 g/dL (1.3-4.6); Glucose 156 mg/dL (65-115); Osmolality Calculated 301 mOsm/kg (285-295); Potassium 3.6 mmol/L (3.5-5.1); Sodium 144 mmol/L (136-145); Total Protein 6.9 g/dL (6.6-8.7)
[2025-03-11 15:24] LABS: UA Slide Review UA Slide Review Perf
[2025-03-11 16:12] VITALS: BP 160/91; PULSE 77; O2SAT 95
== END 2025-03-11 16:22 | disposition home or self-care (01) ==
PROVIDERS: Emergency Provider Family Medicine
DX: N30.90 Cystitis, unspecified without hematuria (principal); Z79.84 Long term (current) use of oral hypoglycemic drugs; Z79.02 Long term (current) use of antithrombotics/antiplatelets; E78.5 Hyperlipidemia, unspecified; I10 Essential (primary) hypertension
CPT/HCPCS: 36415; 71101; 72072; 72100; 80053; 81001; 85025; 87077; 87086; 87186; 99284